=== PATIENT | female | born 1945 | race Two or more races ===

== ENCOUNTER 2023-03-17 09:33 | Inpatient (IN) | payer MEDICARE, SELFPAY ==
--- NOTE | ~2023-03-17 | CT_ITS ---
EXAMINATION: CT ABDOMEN AND PELVIS WITHOUT CONTRAST CLINICAL INFORMATION: Lower back pain. COMPARISON: None available. TECHNIQUE: Multidetector volumetric imaging was performed from the superior aspect of the liver through the pubic symphysis. Sagittal and coronal reformatted images were obtained on the technologist's workstation. This CT examination was performed using dose optimization techniques as appropriate, variously including the following: *Automated exposure control *Adjustment of mA and/or kV according to patient size (this includes techniques or standardized protocols for targeted exams where dose is matched to indication/reason for exam; i.e. extremities or head) *Use of iterative reconstruction technique DLP: 283 mGy-cm FINDINGS: LUNG BASES: The lung bases are clear. The heart size is normal. LIVER, GALLBLADDER, AND BILIARY TREE: The liver is normal in size, shape, and attenuation. No focal hepatic lesion or biliary ductal dilatation is present. The gallbladder is not visualized. PANCREAS: Unremarkable. SPLEEN: Unremarkable. ADRENAL GLANDS: Unremarkable. KIDNEYS AND URETERS: The kidneys are normal in size, shape, and attenuation. No hydronephrosis, hydroureter, or calculi seen. No perinephric stranding. BLADDER: The bladder is nondistended with a Sol's catheter within GASTROINTESTINAL TRACT: Scattered moderate stool, diverticuli and gas is seen in colon without distention. The small bowel loops are normal caliber. Appendix is not visualized the stomach is nondistended ABDOMINAL WALL: No significant hernia is appreciated. LYMPH NODES: Normal. VASCULAR: Unremarkable. PELVIC VISCERA: The uterus is at anteverted and appears grossly unremarkable. There are several calcification left adnexa likely ovarian origin. Punctate calcifications in the right ovary. OSSEOUS STRUCTURES: There is old compression fracture T12 vertebra and superior endplate L1 vertebra with a bridging osteophyte. CT/CT abdomen pelvis wo IV con IMPRESSION: 1. No acute intra-abdominal process seen. 2. Mild constipation. Scattered colonic diverticulosis without diverticulitis. Fleischner guidelines were followed.
--- NOTE | ~2023-03-17 | CT_ITS ---
EXAMINATION: CT HEAD WITHOUT CONTRAST CLINICAL INFORMATION: Confusion. COMPARISON: None. TECHNIQUE: Contiguous axial imaging was performed from the skullbase to vertex without intravenous administration of contrast. This CT examination was performed using dose optimization techniques as appropriate, variously including the following: *Automated exposure control *Adjustment of mA and/or kV according to patient size (this includes techniques or standardized protocols for targeted exams where dose is matched to indication/reason for exam; i.e. extremities or head) *Use of iterative reconstruction technique DLP: 560 mGy-cm. FINDINGS: There is no evidence of acute intracranial hemorrhage or territorial infarction. No abnormal mass effect or midline shift is seen. [place] to white matter differentiation is well preserved. No extra-axial fluid collections are identified. Mild generalized brain parenchymal volume loss noted. The ventricles are normal in size. Mild chronic white matter microangiopathic changes noted. The osseous structures and soft tissues are normal. The mastoid air cells and visualized portions of the paranasal sinuses are well aerated. CT/CT head/brain wo IV con IMPRESSION: No acute intracranial pathology.
--- NOTE | ~2023-03-17 | CT_ITS ---
EXAMINATION: CT THORACIC SPINE WITHOUT CONTRAST CT LUMBAR SPINE WITHOUT CONTRAST CLINICAL INFORMATION: Back pain COMPARISON: CT abdomen and pelvis 03/17/2023 TECHNIQUE: A multidetector CT acquisition of the lumbar spine is obtained without contrast. This CT examination was performed using dose optimization techniques as appropriate, variously including the following: *Automated exposure control *Adjustment of mA and/or kV according to patient size (this includes techniques or standardized protocols for targeted exams where dose is matched to indication/reason for exam; i.e. extremities or head) *Use of iterative reconstruction technique DLP: 511.65 mGy-cm mGy-cm FINDINGS: CT THORACIC SPINE: Diffuse bony demineralization. The normal thoracic kyphosis is preserved. No significant spondylolisthesis. Dextrocurvature of the thoracic spine. Likely chronic compression deformity of the T12 vertebral body with greater than 75% central vertebral body height loss. There is bony retropulsion of the T12 inferior endplate contributing to severe spinal canal stenosis. Likely severe bilateral neural foraminal stenosis, greater on the right, with exiting nerve root impingement at T12-L1. Otherwise, the spinal canal and neural foramen in the thoracic spine appear grossly patent within the constraints of exam technique. 3 mm perifissural nodule in the left upper lobe. Partially visualized multivessel coronary artery atherosclerotic calcification. CT LUMBAR SPINE: Diffuse bony demineralization. The normal lumbar lordosis is preserved. Grade 1 anterolisthesis of L4-L5 and L5-S1. Mild L1 superior endplate height loss. Lumbar vertebral body heights are otherwise maintained. Multilevel intervertebral disc space height loss, most prominent at L2-L3. Multilevel advanced facet arthropathy. Please note that canal patency is not well assessed on this examination due to inherent limitations of CT without intrathecal contrast. Within these limitations, multilevel degenerative changes with level by level detail are as follows: L1-L2: There arthropathy. The spinal canal remains patent. Mild narrowing of the right neural foramen. L2-L3: Disc bulge and osteophytic ridging with facet arthropathy. Asymmetric narrowing of the right lateral recess. The spinal canal is otherwise patent. Mild to moderate right neural foraminal narrowing. L3-L4: Disc bulge and facet arthropathy. The spinal canal and neural foramen remain patent. L4-L5: Disc bulge and facet arthropathy. Mild narrowing of the lateral recesses. The spinal canal is patent. Mild narrowing of the left neural foramen. L5-S1: Disc bulge and facet arthropathy. The spinal canal is patent. The left neural foramen is minimally narrowed. Calcifications along the left adnexa. Atherosclerosis of the abdominal aorta and iliac vessels. CT/CT thoracic spine wo IV con IMPRESSION: Severe compression deformity of T12 with associated mild compression deformity of the L1 superior endplate. There is bony retropulsion of the T12 vertebral body contributing to severe spinal canal stenosis with probable mass effect on the thoracic cord that is not well visualized on this examination. There is severe right greater than left neural foraminal stenosis at T12-L1. Diffuse osteopenia. Coarse calcifications in the left adnexa are likely ovarian in origin. Follow-up pelvic ultrasound can be considered.
--- NOTE | ~2023-03-17 | MR_ITS ---
EXAMINATION: MR THORACIC SPINE WITHOUT CONTRAST CLINICAL INFORMATION: Leg weakness. Evaluate for cord compression. COMPARISON: CT scan of the thoracic and lumbar spine 03/22/2023. TECHNIQUE: MRI of the thoracic spine was obtained using routine sequences without contrast. FINDINGS: VERTEBRAL BODIES AND PARASPINAL STRUCTURES: There is a levoscoliosis at the thoracolumbar region. There is mild hyperkyphosis at the thoracolumbar junction. The study redemonstrates severe compression of the body of T12 and irregular contour of the superior endplate of L1. There is fluid in the intervertebral disc at T12-L1. There is mild edematous signal in the body of T12 centrally and toward the left, and the findings are consistent with an acute to subacute fracture. There is greater than 75% loss of vertebral body height of T12, similar compared to the prior scan. There are extensive degenerative endplate contour changes at this level. There is multilevel narrowing of intervertebral disc height in the mid and upper thoracic spine. Vertebral body heights are maintained at other levels, and there are no other compression fractures. Overall, marrow signal is homogenous. There are small right-sided hepatic cysts. The paravertebral and the visualized posterior thoracic and superior retroperitoneal structures are unremarkable. The conus is at the level of L1-L2. There is severe compression of the spinal cord from retropulsion of the posterior inferior body of T12 into the spinal canal. Accounting for artifact, spinal cord signal appears normal SPINAL LEVELS: C5-C6 and C6-C7: On the localizer images there are posterior disc protrusion at these levels with effacement of CSF ventral to the cord, and there may be central stenosis at C5-C6. There is suboptimal evaluation of the neural foramina. C7-T1: There is a small posterior disc protrusion but there is no cord compression or central stenosis. The neural foramina appear patent. T1-T2 through T9-T10: Posterior disc contours appear normal in is no cord compression or central stenosis. The neural foramina appear patent. T10-T11: There is moderate left and mild right facet arthropathy. Posterior disc contour is normal. There is no central stenosis and the neural foramina are patent bilaterally. T11-T12: There is moderate left and mild right facet arthropathy. Posterior disc contour is normal and there is no central stenosis. The neural foramina are patent bilaterally. T12-L1: There is severe right and moderate left facet arthropathy. As described above, there is posterior protrusion of the inferior body of T12 into the spinal canal; the fragment appears separate from the rest of the body T12 anterior to it. There is marked compression of the lower thoracic spinal cord/conus and there is severe central stenosis. There is severe bilateral foraminal narrowing. L1-L2: There is moderate bilateral facet arthropathy. There is a shallow posterior disc protrusion but there is no central stenosis. The neural foramina are patent bilaterally. L2-L3: There is a posterior disc protrusion with some distortion the ventral thecal sac and there may be mild central stenosis. There is a inferior disc protrusion on the right without definite exiting nerve root impingement. MR/MR thoracic spine wo con IMPRESSION: 1. There is an acute to subacute severe compression fracture of the body of T12 with retropulsion of the inferior body into the spinal canal. There is marked compression of the lower thoracic spinal cord/conus, and there is severe central stenosis. Accounting for artifact, spinal cord signal appears normal. There is severe bilateral foraminal narrowing. 2. There are spondylitic and facet arthropathic changes at multiple other levels as described above. 3. There are severe spondylitic changes in the lower cervical spine. This could be further evaluated with MRI scan of the cervical spine.
[2023-03-17 09:51] VITALS: BP 147/72; BP 148/72; PULSE 108; PULSE 110; RESP 20; TEMP 37.1; O2SAT 100; O2SAT 96; BMI 21.1
[2023-03-17 10:03] LABS: Glucose, Whole Blood 347 mg/dL (60-115)
[2023-03-17 10:50] LABS: Basophils Percent Auto 0.2 % (0-2); Eosinophils Percent Auto 0.4 % (0-4); Hematocrit 36.9 % (37.0-47.0); Hemoglobin 13.2 g/dl (12.0-16.0); Imm Gran Abs Auto 0.15 X10*3/uL (0.00-0.03); Imm Gran Pct Auto 1.4 % (0.0-0.4); Lymphocytes Absolute Auto 1.8 X10*3/uL (1.2-4.9); Lymphocytes Percent Auto 16.6 % (20-40); MANUAL DIFF FLAG NO; Mean Corpuscular HGB Conc 35.8 g/dl (31.0-35.0); Mean Corpuscular Hemoglobin 29.8 pg (27.0-33.0); Mean Corpuscular Volume 83.3 fL (80.0-98.0); Mean Platelet Volume 8.8 fL (9.4-12.3); Monocytes Absolute Auto 0.7 X10*3/uL (0.1-1.2); Monocytes Percent Auto 6.1 % (2-11); Neutrophils Absolute Auto 8.2 x10*3/uL (2.0-8.3); Neutrophils Percent Auto 75.3 % (45-73); Platelet Count 323 X10*3/uL (160-400); Red Blood Count 4.43 X10*6/uL (4.20-5.50); Red Cell Distribution Width 12.3 % (11.0-16.0); White Blood Count 10.9 X10*3/uL (4.8-10.8)
[2023-03-17 10:59] LABS: Prothrombin Time 11.6 SEC (11.1-13.3)
--- NOTE | 2023-03-17 11:01 | ED.GENADULT ---
HPI - General Adult General Chief complaint: General Medical Stated complaint: ? UTI/cloudy urine in suprapubic cath Time Seen by Provider: 03/17/23 10:07 Source: patient and family Mode of arrival: ambulatory Limitations: other (Poor historian) History of Present Illness HPI narrative: This is a 77-year-old female history of hypothyroidism, hypertension, hyperlipidemia, diabetes presenting to the emergency department with her son, according to son patient came in from [place] yesterday, and son noted that her urine was very foul smelling and her Sol catheter had some small blood clots in it, patient also slightly confused in deviating from her baseline. No recent falls. Reports that she recently had lower back surgery in December . Patient's son states she has not had any postop care as scheduled in [place]. She is living at home and is having difficulties with ambulation and he thinks she needs services at home. Patient denies fevers, chills, nausea, vomiting, chest pain, shortness of breath, abdominal pain, changes in bowel habits. Related Data Allergies Allergy/AdvReac Type Severity Reaction Status Date / Time No Known Allergies Allergy Verified 03/17/23 09:54 Review of Systems Review of Systems: Constitutional : No Weight loss, No Fever, No Chills, No Fatigue, No Malaise ENT/Mouth : No sore throat, No Rhinorrhea Eyes: No Eye Pain, No Swelling, No Redness Cardiovascular : No Chest Pain, No SOB, No Dyspnea on Exertion, No Orthopnea, No Edema, No Palpitations Respiratory : No Cough, No Sputum, No Wheezing Gastrointestinal : No Nausea, No Vomiting, No Diarrhea, No Constipation, No abdominal Pain, No Hematochezia, No Melena Genitourinary : No Dysuria, No Urinary Frequency, No Hematuria, Musculoskeletal : No joint pain, No Myalgias, No Joint Swelling Skin : No Skin Lesions, No rash Neuro : No Weakness, No Numbness, No Dizziness, No Headache Psych : No Anxiety/Panic, No Depression All other systems reviewed and are negative Yes all other systems are reviewed and are negative [facility] Past Medical History Attestation statement: The following information was validated with the patient. Source: old records reviewed and nursing notes reviewed Social History Social History Advance Directives: No Advance Directives Information Provided: Yes Physical Exam ED Vital Signs: Vital Signs - 24 hr 03/17/23 09:51 Temperature 98.8 F Pulse Rate 108 H Respiratory Rate 20 Blood Pressure 148/72 H Pulse Oximetry 96 Oxygen Delivery Method Room Air BMI result Body Mass Index 21.1 Vital signs stable Appearance: Alert.? Oriented X3.? No acute distress.? Head: Normocephalic, atraumatic, no step-offs or deformities Eyes: Pupils equal, round and reactive to light.? CVS: Normal heart rate and rhythm.? Pulses normal.? Respiratory: No respiratory distress.? Breath sounds normal.? Abdomen: Soft and nontender.? Skin: Skin warm and dry.? Normal skin color.? Normal skin turgor.? Extremities: No lower extremity edema.? No calf ttp. Global weakness Back: No midline tenderness, no C-spine tenderness, full range of motion, no CVA tenderness bilaterally Neuro: Oriented X 3.? No motor deficit.? No sensory deficit. CN 2-12 intact Course Reevaluation(s) Reevaluation #1: CBC w/ leukocytosis 10.9 without a left shift, chemistry with low sodium 129, potassium 2.8 oral potassium ordered, will also give 10 IV potassium and IV fluids. UA w/ infection. Time: 11:28 Reevaluation #2: Plan at this time is hospital admission will admit to the hospitalist team. At time admission was discussed with hospitalist CT abdomen and pelvis still pending. Time: 11:30 Medications Administered Generic Name Dose Route Start Last Admin Trade Name Freq PRN Reason Stop Dose Admin Sodium Chloride 1,000 mls @ 999 mls/hr 03/17/23 11:15 03/17/23 11:21 Ns IV 03/17/23 12:15 999 mls/hr .[id number] LG Administration Discontinued Medications Generic Name Dose Route Start Last Admin Trade Name Freq PRN Reason Stop Dose Admin Potassium Chloride 40 meq 03/17/23 11:07 03/17/23 11:20 Potassium Chloride Packet 20 Meq Packet PO 03/17/23 11:08 40 meq ONCE ONE Administration Medical Decision Making Medical Decision Making [facility] Narrative: 1105 77-year-old female presents with son who complains that patient has dark urine, noted blood clots and patient's Sol bag and patient also complaining of intermittent back pain with recent surgery in December. No red flag symptoms of back pain Physical examination benign. Patient with global weakness which is her baseline. History and physical exam concerning for possible UTI versus cystitis. Unlikely pyelonephritis. This is likely postoperative pain. I do not suspect acute findings. Unlikely cord compression, cauda equina or epidural abscess. No recent trauma unlikely traumatic injury to head, neck, chest, abdomen or pelvis. Plan at this time labs, imaging. Differential Diagnosis Differential Diagnoses: The differential diagnosis associated with the presentation includes History and physical exam concerning for possible UTI versus cystitis. Unlikely pyelonephritis. This is likely postoperative pain. I do not suspect acute findings. Unlikely cord compression, cauda equina or epidural abscess. Admission/Observation Consideration of admission/observation: Escalation of care including admission/observation considered Likely physical therapy and case management Consult Healthcare Provider Management of the patient was discussed with: Weekend Receptionist Lab Data MDM Lab Attestation statement: I reviewed the patient's lab results. 03/17/23 10:44 03/17/23 10:44 Labs: Lab Results 03/17/23 03/17/23 03/17/23 Range/Units 10:00 10:44 11:08 WBC 10.9 H (4.8-10.8) X10*3/uL RBC 4.43 (4.20-5.50) X10*6/uL Hgb 13.2 (12.0-16.0) g/dl Hct 36.9 L (37.0-47.0) % MCV 83.3 (80.0-98.0) fL MCH 29.8 (27.0-33.0) pg MCHC 35.8 H (31.0-35.0) g/dl RDW 12.3 (11.0-16.0) % Plt Count 323 (160-400) X10*3/uL MPV 8.8 L (9.4-12.3) fL Immature Gran % (Auto) 1.4 H (0.0-0.4) % Neut % (Auto) 75.3 H (45-73) % Lymph % (Auto) 16.6 L (20-40) % [place] % (Auto) 6.1 (2-11) % Eos % (Auto) 0.4 (0-4) % Baso % (Auto) 0.2 (0-2) % Lymph # (Auto) 1.8 (1.2-4.9) X10*3/uL [place] # (Auto) 0.7 (0.1-1.2) X10*3/uL Eos # (Auto) 0.0 (0.0-0.4) X10*3/uL Baso # (Auto) 0.0 (0.0-0.2) X10*3/uL Abs Immat Gran (auto) 0.15 H (0.00-0.03) X10*3/uL Absolute Neuts (auto) 8.2 (2.0-8.3) x10*3/uL Absolute Nucleated RBC 0.000 (0.0-0.012) X10*3/uL Nucleated RBC % (auto) 0.0 (0.0-0.2) /100WBC PT 11.6 (11.1-13.3) SEC INR 1.0 (0.9-1.1) Sodium 129 L (135-145) mmol/L Potassium 2.8 L (3.3-5.1) mmol/L Chloride 85 L (96-108) mmol/L Carbon Dioxide 31 H (22-29) mmol/L Anion Gap 16 (12-20) BUN 11 (9-16) mg/dL Creatinine 0.66 (0.5-1.4) mg/dL Estim Creat Clear Calc 52.9 Estimated GFR > 60 POC Glucose 347 H (60-115) mg/dL Random Glucose 336 H (60-115) mg/dL Calcium 9.2 (8.4-10.2) mg/dL Magnesium 1.9 (1.6-2.6) mg/dL Total Bilirubin 0.8 (0.0-1.0) mg/dL Direct Bilirubin 0.3 (0.0-0.5) mg/dL AST 36 H (5-31) U/L ALT 77 H (0-31) U/L Alkaline Phosphatase 97 (39-117) U/L Total Protein 5.7 L (6.5-8.0) g/dL Albumin 3.4 L (3.5-5.0) g/dL Beta-Hydroxybutyrate 0.14 (0.02-0.27) mmol/L Urine Color Yellow Urine Appearance Turbid Urine pH 7.5 (5.0-9.0) Ur Specific [place] 1.020 (1.005-1.025) Urine Protein 30 (1+) H (Neg-Trace) mg/dL Urine Glucose (UA) >=1000 H (Negative) mg/dL Urine Ketones Negative (Negative) mg/dL Urine Blood Moderate (2+) H (Negative) Urine Nitrite Positive H (Negative) Ur Leukocyte Esterase Large (3+) H (Negative) Urine RBC 0-2 (0-2) /HPF Urine WBC >50 H (0-5) /HPF Urine WBC Clumps Present Ur Squamous Epith Cells 0-2 (0-2) /HPF Urine Bacteria 4+ (None Seen) Hyaline Casts 0-2 (0-2) /LPF Independent Interpretation I performed an independent interpretation of an: CT Scan Radiology Impression Discussion of test interpretation with radiology: I have reviewed the radiologist's reading. External Record Review External record reviewed: Inpatient record Chronic Conditions Patient?s care impacted by: Diabetes, Hypertension and Other (Hypothyroidism, hyperlipidemia) Social Determinants Patient?s care significantly limited by Social Determinants of Health including: Other Social Determinant of Health Critical Care Time Critical Care Time Critical Care Time: Yes Total Critical Care Time: 40 Attestation: I attest to this time spent taking care of the patient, obtaining history, physical, reviewing labs, imaging, speaking to my attending, speaking to specialist. Discharge Plan Discharge Clinical Impression: Acute UTI, Acute hypokalemia, Acute hyponatremia, Physical deconditioning, Lower back pain Patient Disposition: Admitted As Inpatient
[2023-03-17 11:04] LABS: Alanine Aminotransferase 77 U/L (0-31); Albumin Level 3.4 g/dL (3.5-5.0); Alkaline Phosphatase 97 U/L (39-117); Anion Gap 16 (12-20); Aspartate Amino Transferase 36 U/L (5-31); Beta-Hydroxybutyrate 0.14 mmol/L (0.02-0.27); Bilirubin Direct 0.3 mg/dL (0.0-0.5); Bilirubin Total 0.8 mg/dL (0.0-1.0); Blood Urea Nitrogen 11 mg/dL (9-16); Calcium 9.2 mg/dL (8.4-10.2); Carbon Dioxide 31 mmol/L (22-29); Chloride 85 mmol/L (96-108); Creatinine Clr Calc Pharmacy 52.9; Estimated Glomerular Filt Rate > 60; Glucose Random 336 mg/dL (60-115); Magnesium 1.9 mg/dL (1.6-2.6); Potassium 2.8 mmol/L (3.3-5.1); Sodium 129 mmol/L (135-145); Total Protein 5.7 g/dL (6.5-8.0)
--- NOTE | 2023-03-17 11:14 | PC.NURSE ---
PT/SON AT BEDSIDE. PT CAME IN FROM [place] LAST NIGHT. PT IS A/O X 4. NO SOB/ROHAN NOTED MALTESE SPEAKING. PT HAD A URINARY CATH WITH YELLOW URINE (300ML) WITH SM. AMT OF SEDIMENTS AND FOUL ODOR. CATH D/C'D AND A NEW URINARY CATH PLACED.#16 WITH 5ML IMMEDIATE OUTPUT. PT'S EDUIN GROIN AREA IS YURIDIA AND BARRIER CREAM APPLIED. PT HAS DRY SKIN TO TOTAL BACK AREA. PT CLEANED AND REPOSITIONED TO R SIDE WITH PILLOW. PT/SON AWARE OF PLAN OF CARE. ACCORDING TO PT'S SON HE BROUGHT IN HER UPDATED MEDICAL RECORDS INFO. MLP (KIP) AWARE.
[2023-03-17 11:19] LABS: Appearance Urine Turbid; Color Urine Yellow; Glucose Urine UA >=1000 mg/dL (Negative); Leukocyte Esterase Urine Large (3+) (Negative); Nitrite Urine Positive (Negative); PH 7.5 (5.0-9.0); UMIC TRIGGER UACC YES; Urine Blood Moderate (2+) (Negative); Urine Ketones Negative (Negative); Urine Protein 30 (1+) mg/dL (Neg-Trace)
[2023-03-17] MEDS: Potassium Chloride Packet 20 MEQ PACKET 40 MEQ PO (11:20)
[2023-03-17] MEDS: 0.9 % Sodium Chloride 1,000 ML 999 ML IV (11:21)
--- NOTE | 2023-03-17 11:24 | PC.NURSE ---
pt medicated per provider order.
--- NOTE | 2023-03-17 11:30 | ECG_ITS ---
Test Reason : WEAKNESS Blood Pressure : / mmHG Vent. Rate : 081 BPM Atrial Rate : 081 BPM P-R Int : 140 ms QRS Dur : 072 ms QT Int : 444 ms P-R-T Axes : 047 -22 049 degrees QTc Int : 515 ms Sinus rhythm with Premature atrial complexes Prolonged QT Abnormal ECG No previous ECGs available Referred By: Fernando Swan Electronically Signed By:LETI ONEIL MD
[2023-03-17 11:41] LABS: UACC Culture Trigger YES; WBC Clumps Urine Present; WBC Urine >50 /HPF (0-5)
[2023-03-17 11:42] LABS: Bacteria Urine 4+ (None Seen); Hyaline Casts Urine 0-2 /LPF (0-2); RBC Urine 0-2 /HPF (0-2); Squamous Epithelial Cell Urine 0-2 /HPF (0-2)
[2023-03-17 12:35] VITALS: BP 168/81; PULSE 81; RESP 12; TEMP 36.8; O2SAT 100
[2023-03-17 12:36] LABS: Influenza A PCR NEGATIVE (Negative); Influenza B PCR NEGATIVE (Negative); Resp Syncy Virus RNA Qual PCR NEGATIVE (Negative); SARS COV2 PCR INHOUSE NEGATIVE (Negative)
[2023-03-17] MEDS: cefTRIAXone sodium 1 GM in 0.9 % Sodium Chloride 50 ML IV (12:42)
[2023-03-17] MEDS: Potassium Chloride/H20 10 MEQ/100 ML PIGGYBACK 100 MEQ IV (12:43)
[2023-03-17 12:55] LABS: Lactic Acid 3.1 mmol/L (0.5-2.0)
--- NOTE | 2023-03-17 12:56 | PM.IMHP ---
History of Present Illness Date of Service: 03/17/23 Attending physician on admission: Willy Cochran Chief Complaint: Cloudy, foul-smelling urine in catheter Pt is a Citizen Of [place]-speaking 77-year-old female with a PMH significant for?HTN, HLD, [id number] diabetes type 2, hypothyroidism, back surgery in 12/2022 with [address] in place, and mood disorder who presents to the ED with generalized weakness and cloudy, foul-smelling urine in her Sol catheter. Pt only arrived yesterday from [place] where in June of this year she lost her . Since then pt has been depressed, eating and drinking less, and steadily declining in health until she had a fall at home in December of this year. Patient apparently lay on the floor for 2 days until anyone found her. She apparently suffered some kind of spinal injury that required surgery. Patient's son notes that a Sol catheter was placed at that time and has been in place every since. He reports she did not receive any physical therapy either in the hospital at home and has steadily become less and less mobile since the surgery. Currently she is unable to ambulate on her own or with a walker. Due to deconditioning son went to [place] to bring the pt here to live with him. Brings her to the ED today after noticing just how weak she was and that her urine was cloudy, with some clots of blood, and foul-smelling. Pt denies fever, chills nausea, abdominal pain. Denies dysuria but endorses polyuria. No chest pain/pressure, palpitations. Denies shortness of breath. Some mild chronic lower back pain. Denies numbness or tingling in toes. In the ED pt was afebrile but tachycardic up to 108, hypertensive to 168/81, satting at 90 6% on RA. Labs were significant for WBCs 10.9, sodium 129, potassium 2.8, chloride 85, random glucose 336, lactic acid 3.1, AST 36, and ALT 77. No significant leukocytosis. H&H talat. Beta hydroxybutyrate door off. Negative for influenza a and B, RSV, COVID. UA positive for UTI. CT of abdomen/pelvis showed no acute intra-abdominal process, but did show mild constipation and scattered colonic diverticulosis without diverticulitis. EKG demonstrated sinus rhythm with PACs. Pt was treated with potassium chloride IV and p.o., IVF, and ceftriaxone. Pt will be admitted to the hospital for treatment and further evaluation of acute UTI, hyponatremia, hypokalemia, and generalized weakness. Review of Systems Review of Systems: Cloudy, foul-smelling urine Hematuria Generalized weakness, difficulty ambulating Mild chronic lower back pain Denies fever, chills, nausea, vomiting, abdominal pain No numbness or tingling in lower extremities No chest pain/pressure, palpitations Denies shortness of breath [facility] Medical History (Updated 03/17/23 @ 16:48 by THADDEUS Niño) Non-insulin dependent type 2 diabetes mellitus Hypothyroidism CAD (coronary artery disease) HLD (hyperlipidemia) HTN (hypertension) Surgical History (Updated 03/17/23 @ 16:48 by THADDEUS Niño) History of lumbar surgery Social History Smoked in Last 30 Days: Yes Use of substances other than those prescribed or required for medical reasons: No Advance Directives: No Advance Directives Information Provided: Yes Meds Allergies Allergy/AdvReac Type Severity Reaction Status Date / Time No Known Allergies Allergy Verified 03/17/23 09:54 Home Medications Medication Instructions Recorded Confirmed Last Taken Type aspirin 81 mg tablet,delayed 81 mg PO DAILY 03/17/23 03/17/23 Unknown History release atorvastatin 40 mg tablet 40 mg PO DAILY 03/17/23 03/17/23 Unknown History candesartan 32 mg tablet 32 mg PO DAILY 03/17/23 03/17/23 Unknown History citalopram 40 mg tablet 40 mg PO DAILY 03/17/23 03/17/23 Unknown History duloxetine 20 mg capsule,delayed 20 mg PO DAILY 03/17/23 03/17/23 Unknown History release gabapentin 300 mg capsule 300 mg PO BEDTIME 03/17/23 03/17/23 Unknown History glimepiride 4 mg tablet 4 mg PO DAILY 03/17/23 03/17/23 Unknown History glipizide 10 mg tablet, extended 10 mg PO DAILY 03/17/23 03/17/23 Unknown History release 24 hr hydrochlorothiazide 12.5 mg tablet 12.5 mg PO DAILY 03/17/23 03/17/23 Unknown History levothyroxine 50 mcg tablet 50 mcg PO DAILY 03/17/23 03/17/23 Unknown History melatonin 10 mg tablet 10 mg PO BEDTIME PRN Insomnia 03/17/23 03/17/23 Unknown History memantine 10 mg tablet 10 mg PO DAILY 03/17/23 03/17/23 Unknown History metoprolol succinate 50 mg 50 mg PO DAILY 03/17/23 03/17/23 Unknown History tablet,extended release 24 hr Physical Exam Vital Signs and Narrative: Vital Signs: Last Vital Signs Temp 98.3 F 03/17/23 12:35 Pulse 81 03/17/23 12:35 Resp 12 03/17/23 12:35 BP 168/81 H 03/17/23 12:35 Pulse Ox 100 03/17/23 12:35 O2 Del Method Room Air 03/17/23 12:35 BMI result Body Mass Index 21.1 Constitutional: Alert, in no acute distress. Mental Status: Oriented to person, place and time. Eyes: Pupils are equal, round, and reactive to light. Ear, Nose, and Throat: Oropharynx clear, mucous membranes dry. Ears and nose without deformities. Trachea midline. Respiratory: Clear to auscultation bilaterally. No wheezing, rales, or rhonchi. Cardiovascular: S1, S2 regular. No murmurs, rubs, or gallops. Gastrointestinal: Abdomen soft, non-tender, non-distended. Normal bowel sounds. Neurologic: Cranial nerves II-XII are grossly intact bilaterally. No focal neurological deficits. Moves all extremities spontaneously. Skin: Warm, dry. Musculoskeletal: 1/5 strength of lower extremities bilaterally. Severly diminished active and passive dorsiflexion and plantarflexion. Extremities: No edema. Psychiatric: Normal mood and affect. Results Labs 03/17/23 10:44 03/17/23 10:44 Labs: Laboratory Results - last 24 hr 03/17/23 03/17/23 03/17/23 10:00 10:44 11:08 MCV 83.3 MCH 29.8 MCHC 35.8 H RDW 12.3 Plt Count 323 MPV 8.8 L Immature Gran % (Auto) 1.4 H Neut % (Auto) 75.3 H Lymph % (Auto) 16.6 L [place] % (Auto) 6.1 Eos % (Auto) 0.4 Baso % (Auto) 0.2 Lymph # (Auto) 1.8 [place] # (Auto) 0.7 Eos # (Auto) 0.0 Baso # (Auto) 0.0 Abs Immat Gran (auto) 0.15 H Absolute Neuts (auto) 8.2 Absolute Nucleated RBC 0.000 Nucleated RBC % (auto) 0.0 PT 11.6 INR 1.0 Anion Gap 16 Estim Creat Clear Calc 52.9 Estimated GFR > 60 POC Glucose 347 H Random Glucose 336 H Lactic Acid Calcium 9.2 Magnesium 1.9 Total Bilirubin 0.8 Direct Bilirubin 0.3 AST 36 H ALT 77 H Alkaline Phosphatase 97 Total Protein 5.7 L Albumin 3.4 L Beta-Hydroxybutyrate 0.14 Urine Color Yellow Urine Appearance Turbid Urine pH 7.5 Ur Specific [place] 1.020 Urine Protein 30 (1+) H Urine Glucose (UA) >=1000 H Urine Ketones Negative Urine Blood Moderate (2+) H Urine Nitrite Positive H Ur Leukocyte Esterase Large (3+) H Urine RBC 0-2 Urine WBC >50 H Urine WBC Clumps Present Ur Squamous Epith Cells 0-2 Urine Bacteria 4+ Hyaline Casts 0-2 Influenza Type A (PCR) NEGATIVE Influenza Type B (PCR) NEGATIVE RSV RNA Qual (PCR) NEGATIVE SARS-CoV-2 RNA (RT-PCR) NEGATIVE 03/17/23 12:28 MCV MCH MCHC RDW Plt Count MPV Immature Gran % (Auto) Neut % (Auto) Lymph % (Auto) [place] % (Auto) Eos % (Auto) Baso % (Auto) Lymph # (Auto) [place] # (Auto) Eos # (Auto) Baso # (Auto) Abs Immat Gran (auto) Absolute Neuts (auto) Absolute Nucleated RBC Nucleated RBC % (auto) PT INR Anion Gap Estim Creat Clear Calc Estimated GFR POC Glucose Random Glucose Lactic Acid 3.1 H* Calcium Magnesium Total Bilirubin Direct Bilirubin AST ALT Alkaline Phosphatase Total Protein Albumin Beta-Hydroxybutyrate Urine Color Urine Appearance Urine pH Ur Specific [place] Urine Protein Urine Glucose (UA) Urine Ketones Urine Blood Urine Nitrite Ur Leukocyte Esterase Urine RBC Urine WBC Urine WBC Clumps Ur Squamous Epith Cells Urine Bacteria Hyaline Casts Influenza Type A (PCR) Influenza Type B (PCR) RSV RNA Qual (PCR) SARS-CoV-2 RNA (RT-PCR) Assessment and Plan (1) Acute hyponatremia: Status: Acute (2) Acute hypokalemia: Status: Acute (3) Acute UTI: Status: Acute Plan Pt is a Citizen Of [place]-speaking 77-year-old female with a PMH significant for?HTN, HLD, [id number] diabetes type 2, hypothyroidism, back surgery in 12/[address] in [address], and mood disorder who presents to the ED with generalized weakness and cloudy, foul-smelling urine in her Slo catheter. Pt will be admitted to the hospital for treatment and further evaluation of acute UTI, hyponatremia, hypokalemia, and generalized weakness. Acute UTI UA positive for UTI Will treat with ceftriaxone, started 03/17/2023 Follow cultures Hyponatremia Patient's sodium 129 at time of presentation Likely secondary to dehydration from reduced p.o. intake and continuing to take hydrochlorothiazide Hold hydrochlorothiazide Patient receiving IVF Follow BMP Hypokalemia Potassium 2.8 at time presentation Patient received IV and p.o. potassium supplementation in ED Follow BMP Lactic acidosis Patient's lactic acid 3.1 with repeat 2.1 Patient does not meet sepsis criteria: Tachycardia but no fever, tachypnea, or leukocytosis Likely secondary to dehydration Patient received IVF in ED Will place on maintenance fluids [id number] diabetes type 2 Patient hyperglycemic at 347 at time of presentation Continue home meds Will place on sliding scale Diabetic diet HLD/CAD Continue aspirin, statin HTN Hold hydrochlorothiazide Continue all other anti hypertensives Hypothyroidism Continue levothyroxine Mood disorder Continue home meds DNR/DNI Attending:?Dr. Cochran DVT Prophylaxis: Lovenox Pt will require a hospitalization of at least two nights for treatment of?electrolyte imbalances and generalized weakness in the setting of acute UTI. Patient will be treated with IVF, IV antibiotics, electrolyte supplementation as necessary, and close monitoring. Quality Stroke Does the patient have a stroke diagnosis?: No VTE Prior VTE?: No VTE Risk Level:: Medical - moderate - high VTE Device Contraindication: Treatment Not Indicated VTE Drug Contraindication: N/A - Med Ordered
[2023-03-17 14:32] LABS: Reflex Lactate? Lactic Acid Added
[2023-03-17] MEDS: Lactated Ringers 1,000 ML 100 ML IVCONT (14:44)
[2023-03-17 14:47] VITALS: BP 149/79; PULSE 89; RESP 14; TEMP 37; O2SAT 100
[2023-03-17 15:31] LABS: ~Lactic Acid-LAB USE ONLY 2.1 mmol/L (0.5-2.0)
[2023-03-17 16:08] VITALS: BP 116/94; PULSE 79; RESP 20; TEMP 36.8; O2SAT 98
[2023-03-17 16:29] LABS: Cancel Lactic Acid Canceled
[2023-03-17 16:42] LABS: Glucose, Whole Blood 187 mg/dL (60-115)
[2023-03-17 17:19] VITALS: BP 110/56; PULSE 77; RESP 16; TEMP 36.9; O2SAT 97
[2023-03-17] MEDS: Enoxaparin Sodium 40 MG/0.4 ML SYRINGE SUBCUT (17:37)
--- NOTE | 2023-03-17 17:44 | MHC.EDTECH ---
This assumed care of pt at 1700 ,vitals taken and Pt belongings list done .
[2023-03-17 20:27] VITALS: BMI 20.1
[2023-03-17 20:38] VITALS: BMI 20.1
[2023-03-17] MEDS: Insulin Lispro 100 UNIT/ML 3 ML VIAL SUBCUT (20:48)
[2023-03-17] MEDS: 0.9 % Sodium Chloride Flush 3 ML SYRINGE IVFLUSH (20:49)
[2023-03-17] MEDS: Gabapentin 300 MG CAPSULE PO (20:49)
[2023-03-17 20:57] LABS: Glucose, Whole Blood 226 mg/dL (60-115)
[2023-03-17] MEDS: Melatonin 3 MG TABLET 6 MG PO (23:14)
[2023-03-17] MEDS: Acetaminophen 325 MG TABLET 650 MG PO (23:14)
--- NOTE | 2023-03-18 00:24 | PC.NURSE ---
Pt arrived to the unit after 1999 per stretcher, slid to bed by staff, alert and oriented x3, forgetful and not fully aware of health details, denies any pain or any discomfort on arrival, staff interpreted for pt, oriented to the unit and care, meds given, owusu intact and patent, requested for sleep med and pain med for back later, tylenol and melatonin given, slept after.
[2023-03-18] MEDS: Lactated Ringers 1,000 ML 100 ML IVCONT ×2 (01:40→12:54)
[2023-03-18 03:13] VITALS: BP 102/54; PULSE 67; RESP 18; TEMP 36.2; O2SAT 97
[2023-03-18] MEDS: Levothyroxine Sodium 50 MCG TABLET PO (05:41)
[2023-03-18 06:40] LABS: Hematocrit 33.8 % (37.0-47.0); Hemoglobin 11.3 g/dl (12.0-16.0); Mean Corpuscular HGB Conc 33.4 g/dl (31.0-35.0); Mean Corpuscular Hemoglobin 29.4 pg (27.0-33.0); Platelet Count 240 X10*3/uL (160-400); Red Blood Count 3.84 X10*6/uL (4.20-5.50); Red Cell Distribution Width 12.9 % (11.0-16.0); White Blood Count 9.2 X10*3/uL (4.8-10.8)
[2023-03-18 06:52] LABS: Anion Gap 14 (12-20); Blood Urea Nitrogen 5 mg/dL (9-16); Calcium 8.3 mg/dL (8.4-10.2); Carbon Dioxide 24 mmol/L (22-29); Chloride 98 mmol/L (96-108); Creatinine Clr Calc Pharmacy 68.4; Estimated Glomerular Filt Rate > 60; Glucose Random 68 mg/dL (60-115); Potassium 3.2 mmol/L (3.3-5.1); Sodium 133 mmol/L (135-145)
[2023-03-18 07:16] VITALS: BP 170/82; PULSE 84; RESP 16; TEMP 36.6; O2SAT 98
[2023-03-18 07:26] LABS: Glucose, Whole Blood 78 mg/dL (60-115)
[2023-03-18] MEDS: Aspirin Enteric Coated 81 MG TABLET.DR PO (08:26)
[2023-03-18] MEDS: Metoprolol Succinate ER 50 MG TAB.ER.24H PO (08:26)
[2023-03-18] MEDS: Valsartan 160 MG TABLET PO (08:27)
[2023-03-18] MEDS: Potassium Chloride Packet 20 MEQ PACKET PO (08:27)
[2023-03-18] MEDS: Escitalopram Oxalate 20 MG TABLET PO (08:27)
[2023-03-18] MEDS: DULoxetine HCl 20 MG CAPSULE.DR PO (08:27)
[2023-03-18] MEDS: Atorvastatin Calcium 40 MG TABLET PO (08:28)
[2023-03-18] MEDS: Memantine HCl 10 MG TABLET PO (08:28)
[2023-03-18] MEDS: Acetaminophen 325 MG TABLET 650 MG PO ×2 (08:28→16:06)
[2023-03-18] MEDS: glipiZIDE XL 10 MG TAB.ER.24 PO (08:28)
[2023-03-18 11:11] LABS: Glucose, Whole Blood 211 mg/dL (60-115)
[2023-03-18] MEDS: Insulin Lispro 100 UNIT/ML 3 ML VIAL SUBCUT (12:11)
[2023-03-18] MEDS: cefTRIAXone sodium 1 GM in 0.9 % Sodium Chloride 50 ML IV (12:13)
--- NOTE | 2023-03-18 13:04 | PHA.MEDREC ---
Pharmacy Consult ? Medication Reconciliation Pharmacy has completed the medication reconciliation.MED REC COMPLETE BY WAQAS
[2023-03-18 13:18] VITALS: BP 170/82; PULSE 84; O2SAT 98
--- NOTE | 2023-03-18 14:04 | HO.PM.IMPN ---
Subjective Subjective Date of Service: 03/18/23 Interval History: seen and examined this morning follow up for weakness, UTI history obtained with the assistance of a dredge worker feeling better today, no fever or chills Constitutional Constitutional: Denies chills and Denies fever(s) Cardiovascular Cardiovascular: Denies chest pain, Denies palpitations and Denies dyspnea Respiratory Respiratory: Denies cough and Denies dyspnea Gastrointestinal Gastrointestinal: Denies abdominal pain Endocrine Endocrine: Denies palpitations Physical Exam Vital Signs: Vital Signs: Last Vital Signs Temp 98 F 03/18/23 07:16 Pulse 84 03/18/23 07:16 Resp 16 03/18/23 07:16 BP 170/82 H 03/18/23 07:16 Pulse Ox 98 03/18/23 07:16 O2 Del Method Room Air 03/18/23 07:16 BMI result Body Mass Index 20.1 Const: General: cooperative, comfortable, no acute distress, alert and awake Nutritional Appearance: average body habitus Resp: Effort & Inspection: normal respiratory effort, able to speak in complete sentences, no respiratory distress and no use of accessory muscles Cardio: Rate: regular rate GI: Inspection: No distended Palpation (GI): Soft to palpation and nontender : Other: owusu in place draining clear yellow urine Neuro: General: moves all extremities and CN's II-XI intact bilaterally Extrem: General: Yes no pedal edema Objective Data Active Medications Acetaminophen (Acetaminophen 325 Mg Tablet) 650 mg PO Q6H PRN PRN Reason: Pain, Mild (Pain Scale 1-3) Last Admin: 03/18/23 08:28 Dose: 650 mg Documented By: AIRAM Aspirin (Aspirin Enteric Coated 81 Mg Tablet.) 81 mg PO DAILY [facility] Last Admin: 03/18/23 08:26 Dose: 81 mg Documented By: AIRAM Atorvastatin Calcium (Atorvastatin Calcium 40 Mg Tablet) 40 mg PO DAILY [facility] Last Admin: 03/18/23 08:28 Dose: 40 mg Documented By: AIRAM Benzonatate (Benzonatate 100 Mg Capsule) 100 mg PO TID PRN PRN Reason: Cough Dextrose (Dextrose 50 % 25 Gm/50 Ml Syringe) 25 gm IVPUSH Q15M PRN; Protocol PRN Reason: per Hypoglycemia Standing Ord. Docusate Sodium (Docusate Sodium 100 Mg Capsule) 100 mg PO DAILY PRN PRN Reason: Constipation Duloxetine HCl (Duloxetine Hcl 20 Mg Capsule.Dr) 20 mg PO DAILY [facility] Last Admin: 03/18/23 08:27 Dose: 20 mg Documented By: AIRAM Enoxaparin Sodium (Enoxaparin Sodium 40 Mg/0.4 Ml Syringe) 40 mg SUBCUT Q24H [facility] Last Admin: 03/17/23 17:37 Dose: 40 mg Documented By: NAHIDOPEYoseph Escitalopram Oxalate (Escitalopram Oxalate 20 Mg Tablet) 20 mg PO DAILY [facility] Last Admin: 03/18/23 08:27 Dose: 20 mg Documented By: AIRAM Gabapentin (Gabapentin 300 Mg Capsule) 300 mg PO BEDTIME [facility] Last Admin: 03/17/23 20:49 Dose: 300 mg Documented By: CARMELITA Glipizide (Glipizide Xl 10 Mg Tab.Er.24) 10 mg PO DAILY [facility] Last Admin: 03/18/23 08:28 Dose: 10 mg Documented By: AIRAM Glucose (Glucose Gel 15 Gm Gel..Gram.) 15 gm PO Q15M PRN; Protocol PRN Reason: per Hypoglycemia Standing Ord. Lactated Ringer's (Lr) 1,000 mls @ 100 mls/hr IVCONT .Q10H [facility] Last Admin: 03/18/23 12:54 Dose: 100 mls/hr Documented By: AIRAM Ceftriaxone Sodium 1 gm/ (Sodium Chloride) 50 mls @ 100 mls/hr IV Q24H [facility] Last Infusion: 03/18/23 12:53 Dose: Infused Documented By: AIRAM Insulin Human Lispro (Insulin Lispro 100 Unit/Ml 3 Ml Vial) 0 unit SUBCUT QIDACHS [facility]; Protocol Last Admin: 03/18/23 12:11 Dose: 4 unit Documented By: AIRAM Levothyroxine Sodium (Levothyroxine Sodium 50 Mcg Tablet) 50 mcg PO DAILY@0600 [facility] Last Admin: 03/18/23 05:41 Dose: 50 mcg Documented By: CARMELITA Melatonin (Melatonin 3 Mg Tablet) 6 mg PO BEDTIME PRN PRN Reason: Insomnia Last Admin: 03/17/23 23:14 Dose: 6 mg Documented By: CARMELITA Memantine (Memantine Hcl 10 Mg Tablet) 10 mg PO DAILY [facility] Last Admin: 03/18/23 08:28 Dose: 10 mg Documented By: AIRAM Metoprolol Succinate (Metoprolol Succinate Er 50 Mg Tab.Er.24h) 50 mg PO DAILY [facility]; Protocol Last Admin: 03/18/23 08:26 Dose: 50 mg Documented By: AIRAM Sodium Chloride (0.9 % Sodium Chloride Flush 3 Ml Syringe) 3 ml IVFLUSH QSHIFT [facility] Last Admin: 03/18/23 07:51 Dose: Not Given Documented By: LUTHER Non-Admin Reason: IV Running Valsartan (Valsartan 160 Mg Tablet) 160 mg PO DAILY [facility] Last Admin: 03/18/23 08:27 Dose: 160 mg Documented By: AIRAM Labs 03/18/23 05:45 03/18/23 05:45 Labs: Laboratory Results - last 24 hr 03/17/23 03/17/23 03/17/23 14:59 16:38 20:33 MCV MCH MCHC RDW Plt Count MPV Absolute Nucleated RBC Nucleated RBC % (auto) Anion Gap Estim Creat Clear Calc Estimated GFR POC Glucose 187 H 226 H Random Glucose Lactic Acid F/U @ 2Hr 2.1 H* Calcium 03/18/23 03/18/23 03/18/23 05:45 07:15 11:02 MCV 88.0 MCH 29.4 MCHC 33.4 RDW 12.9 Plt Count 240 D MPV 9.0 L Absolute Nucleated RBC 0.000 Nucleated RBC % (auto) 0.0 Anion Gap 14 Estim Creat Clear Calc 68.4 Estimated GFR > 60 POC Glucose 78 211 H Random Glucose 68 Lactic Acid F/U @ 2Hr Calcium 8.3 L D Microbiology Microbiology Results: Microbiology 03/17/23 Unknown Urine Culture - Preliminary Urine clean catch - Urine lopez top Culture in progress. Assessment and Plan (1) Acute hyponatremia: Status: Acute (2) Acute hypokalemia: Status: Acute (3) Acute UTI: Status: Acute Plan Pt is a Turkish-speaking 77-year-old female with a PMH significant for?HTN, HLD, fvy-ckldbrr-wpeugvbdh diabetes type 2, hypothyroidism, back surgery in 12/2022 with chronic [address]u in place, and mood disorder who presents to the ED with generalized weakness and cloudy, foul-smelling urine in her Owusu catheter. Pt will be admitted to the hospital for treatment and further evaluation of acute UTI, hyponatremia, hypokalemia, and generalized weakness. UTI related to chronic indwelling owusu owusu changed in ED on day of admission 03/17 continue IV ceftriaxone, started 03/17/2023 Follow urine culture and blood cultures Hyponatremia improved up to 133 with IVF Likely secondary to dehydration from reduced p.o. intake and HCTZ Hold HCTZ Follow BMP Hypokalemia improving, 3.2 continue po replacement acute lactic acidosis not due to sepsis, likely secondary to dehydration Ebv-ipeoxgy-rhjuurzeb diabetes type 2 hold glipizide SSI, POCs, ADA diet HLD/CAD Continue aspirin, statin HTN Hold hydrochlorothiazide Continue metoprolol, valsartan Hypothyroidism Continue levothyroxine Mood disorder Continue home meds chronic indwelling owusu dates back to back surgery in December will need outpatient urology follow up DNR/DNI Attending:?Dr. Sood DVT Prophylaxis: Lovenox dispo: PT eval pending Requires ongoing inpatient hospitalization for electrolyte imbalances and generalized weakness in the setting of acute UTI. Patient will be treated with IV antibiotics, electrolyte supplementation as necessary, and close monitoring. Quality Stroke Does the patient have a stroke diagnosis?: No VTE Prior VTE?: No VTE Risk Level:: Medical - moderate - high VTE Device Contraindication: Treatment Not Indicated VTE Drug Contraindication: N/A - Med Ordered
[2023-03-18 16:00] VITALS: BP 148/63; PULSE 78; RESP 16; TEMP 36.4; O2SAT 100
[2023-03-18] MEDS: Enoxaparin Sodium 40 MG/0.4 ML SYRINGE SUBCUT (16:07)
[2023-03-18] MEDS: 0.9 % Sodium Chloride Flush 3 ML SYRINGE IVFLUSH ×2 (16:08→20:06)
[2023-03-18 17:14] LABS: Glucose, Whole Blood 102 mg/dL (60-115)
[2023-03-18 20:00] VITALS: BP 120/67; PULSE 75; RESP 16; TEMP 36.2; O2SAT 100
[2023-03-18] MEDS: Gabapentin 300 MG CAPSULE PO (20:06)
[2023-03-18 20:17] LABS: Glucose, Whole Blood 138 mg/dL (60-115)
[2023-03-19 03:22] VITALS: BP 169/77; PULSE 75; RESP 18; TEMP 36.3; O2SAT 100
[2023-03-19] MEDS: Levothyroxine Sodium 50 MCG TABLET PO (05:27)
[2023-03-19 07:23] VITALS: BP 140/74; PULSE 84; RESP 16; TEMP 36.3; O2SAT 99
[2023-03-19 07:40] LABS: Glucose, Whole Blood 115 mg/dL (60-115)
[2023-03-19 08:12] LABS: Anion Gap 15 (12-20); Blood Urea Nitrogen 5 mg/dL (9-16); Calcium 8.6 mg/dL (8.4-10.2); Carbon Dioxide 30 mmol/L (22-29); Chloride 94 mmol/L (96-108); Creatinine Clr Calc Pharmacy 61.2; Estimated Glomerular Filt Rate > 60; Glucose Random 110 mg/dL (60-115); Potassium 3.2 mmol/L (3.3-5.1); Sodium 136 mmol/L (135-145)
[2023-03-19] MEDS: Aspirin Enteric Coated 81 MG TABLET.DR PO (08:12)
[2023-03-19] MEDS: Acetaminophen 325 MG TABLET 650 MG PO ×2 (08:12→14:00)
[2023-03-19] MEDS: Memantine HCl 10 MG TABLET PO (08:13)
[2023-03-19] MEDS: Metoprolol Succinate ER 50 MG TAB.ER.24H PO (08:13)
[2023-03-19] MEDS: Valsartan 160 MG TABLET PO (08:13)
[2023-03-19] MEDS: DULoxetine HCl 20 MG CAPSULE.DR PO (08:14)
[2023-03-19] MEDS: Escitalopram Oxalate 20 MG TABLET PO (08:14)
[2023-03-19] MEDS: Atorvastatin Calcium 40 MG TABLET PO (08:14)
[2023-03-19] MEDS: Docusate Sodium 100 MG CAPSULE PO (08:14)
[2023-03-19] MEDS: 0.9 % Sodium Chloride Flush 3 ML SYRINGE IVFLUSH ×3 (09:00→19:58)
--- NOTE | 2023-03-19 10:33 | PM.NEUROCN ---
History of Present Illness Data of Consult Service Date: 03/19/23 Primary Care Provider: Unknown Physician HPI Reason for consult: Leg weakness 77 years old woman with underlying history of diabetes and hypertension and probably also dementia who was living alone and [place] all after few months ago. Apparently she was not able to take care of herself and at 1 point fell and was on the ground for a while before she was found. Apparently she was taking to local hospital where she had some back surgery and a Sol's catheter was place that is still with her. She was unable to take care of herself. Her son brought her here and noted that she was unable to get upper walk in seemed ill and brought to emergency room. She practically has not been able to walk for a while now. She was not in any distress and was not complaining of any pain Review of Systems Review of Systems: No recent seizure fever or chills PMFSH Past Medical History Medical History (Updated 03/19/23 @ 10:37 by Donna Tamayo MD) Non-insulin dependent type 2 diabetes mellitus Hypothyroidism CAD (coronary artery disease) HLD (hyperlipidemia) HTN (hypertension) Surgical History Surgical History (Updated 03/17/23 @ 16:48 by THADDEUS Niño) History of lumbar surgery Social History Social History Household Members: Children Housing: House Do you presently have visiting nurse or other home services: No Patient Tobacco Use Status: Never used Tobacco Smoked in Last 30 Days: Yes Use of substances other than those prescribed or required for medical reasons: No Currently Displaying Signs/Symptoms of Drug Intoxication Withdrawal: No Have you been hit, kicked, punched, or otherwise hurt by someone within the past year? If so, by whom?: No Do you feel safe in your current relationship?: No Is there a partner from a previous relationship who is making you feel unsafe now?: No Are you made to feel afraid or neglected: No Advance Directives: No Advance Directives Information Provided: Yes Do you have thoughts of harming others: None Do you have a plan to hurt others: No Plan Recently lost weight without trying: No Eating poorly because of decreased appetite: No Nutrition Risks: No Nutritional Risk Patient : No : No Poor oral hygiene: No Meds Allergies Allergy/AdvReac Type Severity Reaction Status Date / Time No Known Allergies Allergy Verified 03/17/23 09:54 Active Medications: Current Medications Acetaminophen (Acetaminophen 325 Mg Tablet) 650 mg PO Q6H PRN PRN Reason: Pain, Mild (Pain Scale 1-3) Last Admin: 03/19/23 08:12 Dose: 650 mg Aspirin (Aspirin Enteric Coated 81 Mg Tablet.) 81 mg PO DAILY [facility] Last Admin: 03/19/23 08:12 Dose: 81 mg Atorvastatin Calcium (Atorvastatin Calcium 40 Mg Tablet) 40 mg PO DAILY [facility] Last Admin: 03/19/23 08:14 Dose: 40 mg Benzonatate (Benzonatate 100 Mg Capsule) 100 mg PO TID PRN PRN Reason: Cough Dextrose (Dextrose 50 % 25 Gm/50 Ml Syringe) 25 gm IVPUSH Q15M PRN; Protocol PRN Reason: per Hypoglycemia Standing Ord. Docusate Sodium (Docusate Sodium 100 Mg Capsule) 100 mg PO DAILY PRN PRN Reason: Constipation Last Admin: 03/19/23 08:14 Dose: 100 mg Duloxetine HCl (Duloxetine Hcl 20 Mg Capsule.) 20 mg PO DAILY [facility] Last Admin: 03/19/23 08:14 Dose: 20 mg Enoxaparin Sodium (Enoxaparin Sodium 40 Mg/0.4 Ml Syringe) 40 mg SUBCUT Q24H [facility] Last Admin: 03/18/23 16:07 Dose: 40 mg Escitalopram Oxalate (Escitalopram Oxalate 20 Mg Tablet) 20 mg PO DAILY [facility] Last Admin: 03/19/23 08:14 Dose: 20 mg Gabapentin (Gabapentin 300 Mg Capsule) 300 mg PO BEDTIME [facility] Last Admin: 03/18/23 20:06 Dose: 300 mg Glucose (Glucose Gel 15 Gm Gel..Gram.) 15 gm PO Q15M PRN; Protocol PRN Reason: per Hypoglycemia Standing Ord. Ceftriaxone Sodium 1 gm/ (Sodium Chloride) 50 mls @ 100 mls/hr IV Q24H [facility] Last Infusion: 03/18/23 12:53 Dose: Infused Insulin Human Lispro (Insulin Lispro 100 Unit/Ml 3 Ml Vial) 0 unit SUBCUT QIDACHS [facility]; Protocol Last Admin: 03/19/23 08:01 Dose: Not Given Levothyroxine Sodium (Levothyroxine Sodium 50 Mcg Tablet) 50 mcg PO DAILY@0600 [facility] Last Admin: 03/19/23 05:27 Dose: 50 mcg Lidocaine (Lidocaine 4 % Patch Adh..Patch) 1 patch TRANSDERMA DAILY [facility]; Protocol Melatonin (Melatonin 3 Mg Tablet) 6 mg PO BEDTIME PRN PRN Reason: Insomnia Last Admin: 03/17/23 23:14 Dose: 6 mg Memantine (Memantine Hcl 10 Mg Tablet) 10 mg PO DAILY [facility] Last Admin: 03/19/23 08:13 Dose: 10 mg Metoprolol Succinate (Metoprolol Succinate Er 50 Mg Tab.Er.24h) 50 mg PO DAILY [facility]; Protocol Last Admin: 03/19/23 08:13 Dose: 50 mg Sodium Chloride (0.9 % Sodium Chloride Flush 3 Ml Syringe) 3 ml IVFLUSH QSHIFT [facility] Last Admin: 03/19/23 09:00 Dose: 3 ml Valsartan (Valsartan 160 Mg Tablet) 160 mg PO DAILY [facility] Last Admin: 03/19/23 08:13 Dose: 160 mg Home Medications Medication Instructions Recorded Confirmed Last Taken Type aspirin 81 mg tablet,delayed 81 mg PO DAILY 03/17/23 03/17/23 Unknown History release atorvastatin 40 mg tablet 40 mg PO DAILY 03/17/23 03/17/23 Unknown History candesartan 32 mg tablet 32 mg PO DAILY 03/17/23 03/17/23 Unknown History citalopram 40 mg tablet 40 mg PO DAILY 03/17/23 03/17/23 Unknown History duloxetine 20 mg capsule,delayed 20 mg PO DAILY 03/17/23 03/17/23 Unknown History release gabapentin 300 mg capsule 300 mg PO BEDTIME 03/17/23 03/17/23 Unknown History glimepiride 4 mg tablet 4 mg PO DAILY 03/17/23 03/17/23 Unknown History glipizide 10 mg tablet, extended 10 mg PO DAILY 03/17/23 03/17/23 Unknown History release 24 hr hydrochlorothiazide 12.5 mg tablet 12.5 mg PO DAILY 03/17/23 03/17/23 Unknown History levothyroxine 50 mcg tablet 50 mcg PO DAILY 03/17/23 03/17/23 Unknown History melatonin 10 mg tablet 10 mg PO BEDTIME PRN Insomnia 03/17/23 03/17/23 Unknown History memantine 10 mg tablet 10 mg PO DAILY 03/17/23 03/17/23 Unknown History metoprolol succinate 50 mg 50 mg PO DAILY 03/17/23 03/17/23 Unknown History tablet,extended release 24 hr Physical Exam Vital Signs: Vital Signs: Last Vital Signs Temp 97.3 F 03/19/23 07:23 Pulse 84 03/19/23 07:23 Resp 16 03/19/23 07:23 BP 140/74 H 03/19/23 07:23 Pulse Ox 99 03/19/23 07:23 O2 Del Method Room Air 03/19/23 07:23 BMI result Body Mass Index 20.1 Neuro: Other: She is alert and awake communicate since Moroccan in understand simple commands and answer simple questions. Face is symmetrical. Visual dudley are full. There is no obvious arm weakness. Diffuse muscle atrophy is noted in feet and legs with absent reflexes and flexor plantars. She is able to lift her legs against gravity. Results Labs 03/18/23 05:45 03/19/23 07:35 Labs: BMP 03/19/23 07:35 Sodium 136 Potassium 3.2 L Chloride 94 L Carbon Dioxide 30 H BUN 5 L Creatinine 0.57 Calcium 8.6 Microbiology Microbiology Results: Microbiology 03/17/23 Unknown Urine clean catch - Urine lopez top Urine Culture - Preliminary Gram negative tevin 03/17/23 12:28 Blood - Venous Blood Culture - Preliminary No growth after 24 hours. 03/17/23 12:28 Blood - Venous Blood Culture - Preliminary No growth after 24 hours. 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 As far as exact nature and severity of her situation is concerned, I recommend a noncontrast head CT to assess her brain situation and treatment of UTI with PT OT. Sol's catheter situation should be determined again to see if she really requires it. An EMG nerve conduction study of legs can be done to assess neuropathy, which can be does as an outpatient too. Procedures Date of Service Date of Service: 03/19/23
[2023-03-19] MEDS: Lidocaine 4 % Patch ADH..PATCH 1 PATCH TRANSDERMA (11:13)
[2023-03-19] MEDS: cefTRIAXone sodium 1 GM in 0.9 % Sodium Chloride 50 ML IV (11:16)
[2023-03-19 11:36] LABS: Glucose, Whole Blood 229 mg/dL (60-115)
[2023-03-19] MEDS: Insulin Lispro 100 UNIT/ML 3 ML VIAL SUBCUT ×2 (12:19→21:16)
--- NOTE | 2023-03-19 12:35 | MHC.CM.PN ---
CM MET WITH PT WITH THE ASSISTANCE OF A BUSINESS TRANSFORMATION MANAGER. SHE REPORTS SHE MOVED HERE A FEW DAYS AGO FROM [place], TO LIVE WITH HER SON SHE SAYS SHE HAS NO PCP OR SERVICES AT THIS TIME, THEY ARE WORKING ON ARRANGING THEM SHE SAYS SHE IS NO LONGER AMBULATORY AND RELIES ON A W/C FOR MOBILITY SHE SAYS SHE HAS A HCP SHE COMPLETED IN [place] CM DID SUGGEST IT MAY BE BENEFICIAL TO COMPLETE ONE IN [place], PT WILL CONSIDER CM WILL REVISIT THE HCP TOPIC WITH PT TOMORROW MORNING IMM DELIVERED DCP: HOME WITH FAMILY SUPPORT SHE WILL NEED BLS TRANSPORT
--- NOTE | 2023-03-19 13:47 | HO.PM.IMPN ---
Subjective Subjective Date of Service: 03/19/23 Interval History: seen and examined this morning follow up for UTI, weakness no overnight events feeling better Review of Systems Review of Systems: Yes all other systems are reviewed and are negative Constitutional Constitutional: Denies chills and Denies fever(s) Cardiovascular Cardiovascular: Denies chest pain, Denies palpitations and Denies dyspnea Respiratory Respiratory: Denies cough and Denies dyspnea Gastrointestinal Gastrointestinal: Denies abdominal pain Endocrine Endocrine: Denies palpitations Physical Exam Vital Signs: Vital Signs: Last Vital Signs Temp 97.3 F 03/19/23 07:23 Pulse 84 03/19/23 07:23 Resp 16 03/19/23 07:23 BP 140/74 H 03/19/23 07:23 Pulse Ox 99 03/19/23 07:23 O2 Del Method Room Air 03/19/23 07:23 BMI result Body Mass Index 20.1 Const: General: cooperative, comfortable, no acute distress, alert and awake Nutritional Appearance: average body habitus Resp: Effort & Inspection: normal respiratory effort, able to speak in complete sentences, no respiratory distress and no use of accessory muscles Cardio: Rate: regular rate GI: Inspection: No distended Palpation (GI): Soft to palpation and nontender : Other: owusu in place draining clear yellow urine Neuro: General: moves all extremities and CN's II-XI intact bilaterally Extrem: Other: able to lift both legs against gravity; strength equal b/l splints on b/l feet General: Yes no pedal edema Objective Data Active Medications Acetaminophen (Acetaminophen 325 Mg Tablet) 650 mg PO Q6H PRN PRN Reason: Pain, Mild (Pain Scale 1-3) Last Admin: 03/19/23 08:12 Dose: 650 mg Documented By: AIRAM Aspirin (Aspirin Enteric Coated 81 Mg Tablet.) 81 mg PO DAILY [facility] Last Admin: 03/19/23 08:12 Dose: 81 mg Documented By: AIRAM Atorvastatin Calcium (Atorvastatin Calcium 40 Mg Tablet) 40 mg PO DAILY [facility] Last Admin: 03/19/23 08:14 Dose: 40 mg Documented By: AIRAM Benzonatate (Benzonatate 100 Mg Capsule) 100 mg PO TID PRN PRN Reason: Cough Dextrose (Dextrose 50 % 25 Gm/50 Ml Syringe) 25 gm IVPUSH Q15M PRN; Protocol PRN Reason: per Hypoglycemia Standing Ord. Docusate Sodium (Docusate Sodium 100 Mg Capsule) 100 mg PO DAILY PRN PRN Reason: Constipation Last Admin: 03/19/23 08:14 Dose: 100 mg Documented By: AIRAM Duloxetine HCl (Duloxetine Hcl 20 Mg Capsule.Dr) 20 mg PO DAILY [facility] Last Admin: 03/19/23 08:14 Dose: 20 mg Documented By: AIRAM Enoxaparin Sodium (Enoxaparin Sodium 40 Mg/0.4 Ml Syringe) 40 mg SUBCUT Q24H [facility] Last Admin: 03/18/23 16:07 Dose: 40 mg Documented By: AIRAM Escitalopram Oxalate (Escitalopram Oxalate 20 Mg Tablet) 20 mg PO DAILY [facility] Last Admin: 03/19/23 08:14 Dose: 20 mg Documented By: AIRAM Gabapentin (Gabapentin 300 Mg Capsule) 300 mg PO BEDTIME [facility] Last Admin: 03/18/23 20:06 Dose: 300 mg Documented By: CARMELITA Glucose (Glucose Gel 15 Gm Gel..Gram.) 15 gm PO Q15M PRN; Protocol PRN Reason: per Hypoglycemia Standing Ord. Ceftriaxone Sodium 1 gm/ (Sodium Chloride) 50 mls @ 100 mls/hr IV Q24H [facility] Last Infusion: 03/19/23 12:14 Dose: Infused Documented By: AIRAM Insulin Human Lispro (Insulin Lispro 100 Unit/Ml 3 Ml Vial) 0 unit SUBCUT QIDACHS [facility]; Protocol Last Admin: 03/19/23 12:19 Dose: 4 unit Documented By: AIRAM Levothyroxine Sodium (Levothyroxine Sodium 50 Mcg Tablet) 50 mcg PO DAILY@0600 [facility] Last Admin: 03/19/23 05:27 Dose: 50 mcg Documented By: CARMELITA Lidocaine (Lidocaine 4 % Patch Adh..Patch) 1 patch TRANSDERMA DAILY [facility]; Protocol Last Admin: 03/19/23 11:13 Dose: 1 patch Documented By: AIRAM Melatonin (Melatonin 3 Mg Tablet) 6 mg PO BEDTIME PRN PRN Reason: Insomnia Last Admin: 03/17/23 23:14 Dose: 6 mg Documented By: CARMELITA Memantine (Memantine Hcl 10 Mg Tablet) 10 mg PO DAILY [facility] Last Admin: 03/19/23 08:13 Dose: 10 mg Documented By: AIRAM Metoprolol Succinate (Metoprolol Succinate Er 50 Mg Tab.Er.24h) 50 mg PO DAILY [facility]; Protocol Last Admin: 03/19/23 08:13 Dose: 50 mg Documented By: AIRAM Sodium Chloride (0.9 % Sodium Chloride Flush 3 Ml Syringe) 3 ml IVFLUSH QSHIFT [facility] Last Admin: 03/19/23 09:00 Dose: 3 ml Documented By: AIRAM Valsartan (Valsartan 160 Mg Tablet) 160 mg PO DAILY [facility] Last Admin: 03/19/23 08:13 Dose: 160 mg Documented By: AIRAM Labs 03/18/23 05:45 03/19/23 07:35 Labs: Laboratory Results - last 24 hr 03/18/23 03/18/23 03/19/23 16:37 20:02 07:29 Anion Gap Estim Creat Clear Calc Estimated GFR POC Glucose 102 138 H 115 Random Glucose Calcium 03/19/23 03/19/23 07:35 11:30 Anion Gap 15 Estim Creat Clear Calc 61.2 Estimated GFR > 60 POC Glucose 229 H Random Glucose 110 Calcium 8.6 Microbiology Microbiology Results: Microbiology 03/17/23 Unknown Urine Culture - Preliminary Urine clean catch - Urine lopez top Gram negative tevin 03/17/23 12:28 Blood Culture - Preliminary Blood - Venous No growth after 24 hours. 03/17/23 12:28 Blood Culture - Preliminary Blood - Venous No growth after 24 hours. Assessment and Plan (1) Acute UTI: Status: Acute Plan Pt is a Eritrean-speaking 77-year-old female with a PMH significant for?HTN, HLD, oju-slrzuuz-xdlgudmil diabetes type 2, hypothyroidism, back surgery in 12/2022 with chronic [address]u in place, and mood disorder who presents to the ED with generalized weakness and cloudy, foul-smelling urine in her Owusu catheter. Pt will be admitted to the hospital for treatment and further evaluation of acute UTI, hyponatremia, hypokalemia, and generalized weakness. UTI related to chronic indwelling owusu owusu changed in ED on day of admission 03/17 continue IV ceftriaxone, started 03/17/2023 urine culture growing GNR blood cultures negative to date Hyponatremia resolved with IVF Likely secondary to dehydration from reduced p.o. intake and HCTZ HCTZ on hold Hypokalemia improving, 3.2 continue po replacement back pain, chronic had fall and subsequent surgery in the middle of december in [place] no details available son will try to bring in paperwork [place] seen by neuro, rec outpatient EMG studies for lower extremities to assess leg weakness chronic indwelling owusu dates back to back surgery in December son will try to bring in paperwork from [place] will need outpatient urology follow up acute lactic acidosis not due to sepsis, likely secondary to dehydration Hte-hltrvdl-dnwozjsad diabetes type 2 hold glipizide SSI, POCs, ADA diet HLD/CAD Continue aspirin, statin, BB HTN Hold hydrochlorothiazide Continue metoprolol, valsartan Hypothyroidism Continue levothyroxine Mood disorder Continue home meds dementia, unspecified, mild pt alert and oriented continue baseline namenda seen by neuro - rec brain CT DNR/DNI Attending:?Dr. Sood DVT Prophylaxis: Lovenox dispo: seen by PT rec STR vs acute rehab Requires ongoing inpatient hospitalization for electrolyte imbalances and generalized weakness in the setting of acute UTI. Patient will be treated with IV antibiotics, electrolyte supplementation as necessary, and close monitoring. Quality Stroke Does the patient have a stroke diagnosis?: No VTE Prior VTE?: No VTE Risk Level:: Medical - moderate - high VTE Device Contraindication: Treatment Not Indicated VTE Drug Contraindication: N/A - Med Ordered
[2023-03-19] MEDS: Potassium Chloride Packet 20 MEQ PACKET 40 MEQ PO (14:00)
[2023-03-19 16:00] VITALS: BP 149/74; PULSE 72; RESP 16; TEMP 36.8; O2SAT 97
[2023-03-19 16:20] LABS: Glucose, Whole Blood 133 mg/dL (60-115)
[2023-03-19] MEDS: Enoxaparin Sodium 40 MG/0.4 ML SYRINGE SUBCUT (17:05)
[2023-03-19] MEDS: Gabapentin 300 MG CAPSULE PO (19:58)
[2023-03-19 20:00] VITALS: BP 137/64; PULSE 79; RESP 16; TEMP 36.5; O2SAT 100
[2023-03-19 21:09] LABS: Glucose, Whole Blood 160 mg/dL (60-115)
[2023-03-20 03:57] VITALS: BP 135/62; PULSE 82; RESP 18; TEMP 36.1; O2SAT 99
[2023-03-20] MEDS: Levothyroxine Sodium 50 MCG TABLET PO (05:46)
[2023-03-20 06:41] LABS: Anion Gap 14 (12-20); Blood Urea Nitrogen 5 mg/dL (9-16); Calcium 8.5 mg/dL (8.4-10.2); Carbon Dioxide 29 mmol/L (22-29); Chloride 95 mmol/L (96-108); Creatinine Clr Calc Pharmacy 69.8; Estimated Glomerular Filt Rate > 60; Glucose Random 75 mg/dL (60-115); Potassium 3.5 mmol/L (3.3-5.1); Sodium 134 mmol/L (135-145)
[2023-03-20 07:24] VITALS: BP 147/80; PULSE 93; RESP 16; TEMP 36.2; O2SAT 99
[2023-03-20 07:30] LABS: Glucose, Whole Blood 100 mg/dL (60-115)
[2023-03-20] MEDS: Valsartan 160 MG TABLET PO (08:54)
[2023-03-20] MEDS: Memantine HCl 10 MG TABLET PO (08:55)
[2023-03-20] MEDS: Escitalopram Oxalate 20 MG TABLET PO (08:55)
[2023-03-20] MEDS: DULoxetine HCl 20 MG CAPSULE.DR PO (08:55)
[2023-03-20] MEDS: Aspirin Enteric Coated 81 MG TABLET.DR PO (08:55)
[2023-03-20] MEDS: Lidocaine 4 % Patch ADH..PATCH 1 PATCH TRANSDERMA (08:56)
[2023-03-20] MEDS: Metoprolol Succinate ER 50 MG TAB.ER.24H PO (08:56)
[2023-03-20] MEDS: Atorvastatin Calcium 40 MG TABLET PO (08:56)
--- NOTE | 2023-03-20 09:36 | MHC.CLN ---
NUTRITION SUPPLEMENT CHANGED TO ENSURE MAX PROTEIN BID. PROVIDES 300 KCALS, 40 G PROTEIN. CONTINUE DIABETIC 2000 KCAL DIET.
[2023-03-20 10:39] VITALS: BP 147/80; PULSE 93; O2SAT 99
[2023-03-20 11:14] LABS: Glucose, Whole Blood 204 mg/dL (60-115)
[2023-03-20] MEDS: Insulin Lispro 100 UNIT/ML 3 ML VIAL SUBCUT ×3 (11:33→21:08)
[2023-03-20] MEDS: cefTRIAXone sodium 1 GM in 0.9 % Sodium Chloride 50 ML IV (11:33)
--- NOTE | 2023-03-20 12:35 | P.PNIM_ITS ---
Subjective Subjective Date of Service: 03/20/23 Interval History: follow up for UTI, weakness no overnight events feeling better Review of Systems Review of Systems: Yes all other systems are reviewed and are negative Constitutional Constitutional: Denies chills and Denies fever(s) Cardiovascular Cardiovascular: Denies chest pain, Denies palpitations and Denies dyspnea Respiratory Respiratory: Denies cough and Denies dyspnea Gastrointestinal Gastrointestinal: Denies abdominal pain Endocrine Endocrine: Denies palpitations Physical Exam 2 Vital Signs: Vital Signs: Last Vital Signs Temp 97.2 F 03/20/23 07:24 Pulse 93 03/20/23 10:39 Resp 16 03/20/23 07:24 BP 147/80 H 03/20/23 10:39 Pulse Ox 99 03/20/23 10:39 O2 Del Method Room Air 03/20/23 07:24 BMI result Body Mass Index 20.1 Appearing in no acute distress lung sounds are clear to auscultation heart regular rate rhythm, clear S1, S2 positive bowel sounds, abdomen is soft, nontender neuro patient is alert x3, no focal deficits Objective Data Active Medications Acetaminophen (Acetaminophen 325 Mg Tablet) 650 mg PO Q6H PRN PRN Reason: Pain, Mild (Pain Scale 1-3) Last Admin: 03/19/23 14:00 Dose: 650 mg Documented By: AIRAM Aspirin (Aspirin Enteric Coated 81 Mg Tablet.) 81 mg PO DAILY [facility] Last Admin: 03/20/23 08:55 Dose: 81 mg Documented By: FÁTIMA Atorvastatin Calcium (Atorvastatin Calcium 40 Mg Tablet) 40 mg PO DAILY [facility] Last Admin: 03/20/23 08:56 Dose: 40 mg Documented By: FÁTIMA Benzonatate (Benzonatate 100 Mg Capsule) 100 mg PO TID PRN PRN Reason: Cough Dextrose (Dextrose 50 % 25 Gm/50 Ml Syringe) 25 gm IVPUSH Q15M PRN; Protocol PRN Reason: per Hypoglycemia Standing Ord. Docusate Sodium (Docusate Sodium 100 Mg Capsule) 100 mg PO DAILY PRN PRN Reason: Constipation Last Admin: 03/19/23 08:14 Dose: 100 mg Documented By: AIRAM Duloxetine HCl (Duloxetine Hcl 20 Mg Capsule.) 20 mg PO DAILY [facility] Last Admin: 03/20/23 08:55 Dose: 20 mg Documented By: FÁTIMA Enoxaparin Sodium (Enoxaparin Sodium 40 Mg/0.4 Ml Syringe) 40 mg SUBCUT Q24H [facility] Last Admin: 03/19/23 17:05 Dose: 40 mg Documented By: AIRAM Escitalopram Oxalate (Escitalopram Oxalate 20 Mg Tablet) 20 mg PO DAILY [facility] Last Admin: 03/20/23 08:55 Dose: 20 mg Documented By: FÁTIMA Gabapentin (Gabapentin 300 Mg Capsule) 300 mg PO BEDTIME [facility] Last Admin: 03/19/23 19:58 Dose: 300 mg Documented By: ROSALIO Glucose (Glucose Gel 15 Gm Gel..Gram.) 15 gm PO Q15M PRN; Protocol PRN Reason: per Hypoglycemia Standing Ord. Ceftriaxone Sodium 1 gm/ (Sodium Chloride) 50 mls @ 100 mls/hr IV Q24H [facility] Last Infusion: 03/20/23 12:31 Dose: Infused Documented By: FÁTIMA Insulin Human Lispro (Insulin Lispro 100 Unit/Ml 3 Ml Vial) 0 unit SUBCUT QIDACHS [facility]; Protocol Last Admin: 03/20/23 11:33 Dose: 4 unit Documented By: FÁTIMA Levothyroxine Sodium (Levothyroxine Sodium 50 Mcg Tablet) 50 mcg PO DAILY@0600 [facility] Last Admin: 03/20/23 05:46 Dose: 50 mcg Documented By: ROSALIO Lidocaine (Lidocaine 4 % Patch Adh..Patch) 1 patch TRANSDERMA DAILY [facility]; Protocol Last Admin: 03/20/23 08:56 Dose: 1 patch Documented By: FÁTIMA Melatonin (Melatonin 3 Mg Tablet) 6 mg PO BEDTIME PRN PRN Reason: Insomnia Last Admin: 03/17/23 23:14 Dose: 6 mg Documented By: CASTILPushpa Memantine (Memantine Hcl 10 Mg Tablet) 10 mg PO DAILY [facility] Last Admin: 03/20/23 08:55 Dose: 10 mg Documented By: FÁTIMA Metoprolol Succinate (Metoprolol Succinate Er 50 Mg Tab.Er.24h) 50 mg PO DAILY [facility]; Protocol Last Admin: 03/20/23 08:56 Dose: 50 mg Documented By: FÁTIMA Sodium Chloride (0.9 % Sodium Chloride Flush 3 Ml Syringe) 3 ml IVFLUSH QSHIFT [facility] Last Admin: 03/20/23 09:04 Dose: Not Given Documented By: FÁTIMA Non-Admin Reason: Previously Administered Valsartan (Valsartan 160 Mg Tablet) 160 mg PO DAILY [facility] Last Admin: 03/20/23 08:54 Dose: 160 mg Documented By: FÁTIMA Labs 03/18/23 05:45 03/20/23 05:29 Labs: Laboratory Results - last 24 hr 03/19/23 03/19/23 03/20/23 16:10 21:00 05:29 Hold Purple Top SEE NOTE Anion Gap 14 Estim Creat Clear Calc 69.8 Estimated GFR > 60 POC Glucose 133 H 160 H Random Glucose 75 Calcium 8.5 03/20/23 03/20/23 07:26 11:10 Hold Purple Top Anion Gap Estim Creat Clear Calc Estimated GFR POC Glucose 100 204 H Random Glucose Calcium Microbiology Microbiology Results: Microbiology 03/17/23 Unknown Urine Culture - Preliminary Urine clean catch - Urine lopez top Escherichia coli Klebsiella pneumoniae 03/17/23 12:28 Blood Culture - Preliminary Blood - Venous No growth after 48 hours. 03/17/23 12:28 Blood Culture - Preliminary Blood - Venous No growth after 48 hours. Assessment and Plan (1) Acute UTI: Status: Acute Plan Pt is a Yi-speaking 77-year-old female with a PMH significant for?HTN, HLD, ajo-cmarcnj-yknzhyoge diabetes type 2, hypothyroidism, back surgery in 12/2022 with chronic [address] in place, and mood disorder who presents to the ED with generalized weakness and cloudy, foul-smelling urine in her Owusu catheter. Pt will be admitted to the hospital for treatment and further evaluation of acute UTI, hyponatremia, hypokalemia, and generalized weakness. UTI related to chronic indwelling owusu owusu changed in ED on day of admission 03/17 continue IV ceftriaxone, started 03/17/2023 urine culture growing Ecoli and Klebsiella blood cultures negative to date Hyponatremia resolved with IVF Likely secondary to dehydration from reduced p.o. intake and HCTZ HCTZ on hold Hypokalemia. resolved continue po replacement back pain, chronic had fall and subsequent surgery in the middle of december in [place] son will try to bring in paperwork [place] seen by neuro, rec outpatient EMG studies for lower extremities to assess leg weakness chronic indwelling owusu dates back to back surgery in December son will try to bring in paperwork from [place] will need outpatient urology follow up acute lactic acidosis not due to sepsis, likely secondary to dehydration Wic-mfocvoj-cajhpnthk diabetes type 2 hold glipizide SSI, POCs, ADA diet HLD/CAD Continue aspirin, statin, BB HTN Hold hydrochlorothiazide Continue metoprolol, valsartan Hypothyroidism Continue levothyroxine Mood disorder Continue home meds dementia, unspecified, mild pt alert and oriented continue baseline namenda seen by neuro - rec brain CT DNR/DNI Attending:?Dr. Cochran DVT Prophylaxis: Lovenox dispo: seen by PT rec STR vs acute rehab Requires ongoing inpatient hospitalization for electrolyte imbalances and generalized weakness in the setting of acute UTI. Patient will be treated with IV antibiotics, electrolyte supplementation as necessary, and close monitoring. Quality Stroke Does the patient have a stroke diagnosis?: No VTE Prior VTE?: No VTE Risk Level:: Medical - moderate - high VTE Device Contraindication: Treatment Not Indicated VTE Drug Contraindication: N/A - Med Ordered
--- NOTE | 2023-03-20 13:22 | MHC.SL.SWA ---
Speech Pathologist Impression: Oral phase dysphagia Risk of Aspiration Due to: None Dysphasia Diet Status: DOWNGRADE TO NDD3 Liquid Consistency and Strategies for Safe Swallow: Liquid Intake Recommendation: Thin Liquid Intake Strategies: Small Sips Solid Food Consistency: Dietary Recommendations: Chopped/Advanced (NDD3) Oral Medication Intake: Whole with Liquid Please contact the pharmacy regarding appropriate crushable or liquid drug formulations that are available whenever modified delivery is recommended. Compensatory Strategies and Precautions to be Taken for Safe Swallow: Sitting Upright (90 deg) Small Bites and Sips Alternate Liquids/Solids Rate of Ingestion Change Avoid Specific Foods Supervision While Eating and Drinking for Safe Swallow: Intermittent Supervision Foods to Avoid: Hard, dry, or sticky solids Swallowing Recommended Treatments: Compens. Strategy Educat. Recommendation for Speech: Inpatient Speech Therapy Comment: SHIELD CLEANER to f/u 1-2x to monitor tolerance Improvement Lead Clinican/Clinical Fellow: No Supervisory Statement: I have reviewed and agree with the student/clinical fellow's documentation: N/A Speech Language Pathologist: Margarette Francisco M.A., CCC-SHIELD CLEANER
--- NOTE | 2023-03-20 15:00 | MHC.CM.PN ---
Addendum entered by Maria D Villanueva RN 03/20/23 16:27: HCP completed with patient, son named as agent. Bed offer from [facility] pending auth. CM will follow. Original Note: PT recommending acute rehab. Referrals sent, but no bed offers from 3 local [facility] noting that patient does not meet level of care. Patient recently came from [place] and has [employer] Medicare Managed Plan. Referrals sent to STR's. Discussed with son, who states he cannot care for his mother at home. Awaiting referral responses.
[2023-03-20 15:24] VITALS: BP 141/64; PULSE 88; RESP 18; TEMP 36.1; O2SAT 99
[2023-03-20 16:45] LABS: Glucose, Whole Blood 166 mg/dL (60-115)
[2023-03-20] MEDS: 0.9 % Sodium Chloride Flush 3 ML SYRINGE IVFLUSH ×2 (17:12→20:18)
[2023-03-20] MEDS: Enoxaparin Sodium 40 MG/0.4 ML SYRINGE SUBCUT (17:12)
[2023-03-20 19:58] VITALS: BP 119/68; PULSE 87; RESP 18; TEMP 36.2; O2SAT 97
[2023-03-20] MEDS: Acetaminophen 325 MG TABLET 650 MG PO (20:17)
[2023-03-20] MEDS: Gabapentin 300 MG CAPSULE PO (20:17)
[2023-03-20 20:35] LABS: Glucose, Whole Blood 175 mg/dL (60-115)
[2023-03-21 03:00] VITALS: BP 130/62; PULSE 84; RESP 18; TEMP 36.7; O2SAT 100
[2023-03-21] MEDS: Levothyroxine Sodium 50 MCG TABLET PO (05:48)
[2023-03-21 07:03] VITALS: BP 149/68; PULSE 97; RESP 17; TEMP 36.1; O2SAT 99
[2023-03-21 07:09] LABS: Glucose, Whole Blood 147 mg/dL (60-115)
[2023-03-21] MEDS: Atorvastatin Calcium 40 MG TABLET PO (10:27)
[2023-03-21] MEDS: Aspirin Enteric Coated 81 MG TABLET.DR PO (10:27)
[2023-03-21] MEDS: Valsartan 160 MG TABLET PO (10:27)
[2023-03-21] MEDS: Metoprolol Succinate ER 50 MG TAB.ER.24H PO (10:27)
[2023-03-21] MEDS: Escitalopram Oxalate 20 MG TABLET PO (10:27)
[2023-03-21] MEDS: DULoxetine HCl 20 MG CAPSULE.DR PO (10:27)
[2023-03-21] MEDS: Lidocaine 4 % Patch ADH..PATCH 1 PATCH TRANSDERMA (10:28)
[2023-03-21] MEDS: Memantine HCl 10 MG TABLET PO (10:28)
[2023-03-21] MEDS: cefTRIAXone sodium 1 GM in 0.9 % Sodium Chloride 50 ML IV (10:38)
--- NOTE | 2023-03-21 11:01 | MHC.SL.DTX ---
Dysphagia Diet modifications: Last documented Solid diet consistencies: Chopped/Advanced (NDD3) Last documented Liquid consistency: Thin Changes made to current diet?: No Liquid Consistency and Strategies: Liquid Intake Recommendation: Thin Compensatory Strategies for Safe Swallow: Small Sips Compensatory Strategies for Safe Swallow(b): Sitting Upright (90 deg) Small Bites and Sips Alternate Liquids/Solids Rate of Ingestion Change Avoid Specific Foods Solid Food Consistency: Dietary Recommendations: Chopped/Advanced (NDD3) Oral Medication Intake: Whole with Liquid Strategies and Precautions to be Taken for Safe Swallow: Sitting Upright (90 deg) Small Bites and Sips Alternate Liquids/Solids Rate of Ingestion Change Avoid Specific Foods Supervision While Eating and/Drinking: Intermittent Supervision Foods to Avoid: Hard, dry, or sticky solids Swallowing Recommended Treatments: Compens. Strategy Educat. Level of Impact on: Daily activities: None Interpersonal interactions: None Education: None Employment: None Community: None Prognosis for Improvement: Good Recommendation for Speech: Inpatient Speech Therapy Comment: When asked, Pt is content with her dietary choices and makes no requests for alteration at this time. No further AUTOS DISASSEMBLER intervention required as she is demonstrating her functional baseline. Customer Supply Coordinator Clinican/Clinical Fellow: No Supervisory Statement: I have reviewed and agree with the student/clinical fellow's documentation: N/A Speech Language Pathologist: Valerio Hemphill M.A., CCC-AUTOS DISASSEMBLER
[2023-03-21 11:10] LABS: Glucose, Whole Blood 385 mg/dL (60-115)
--- NOTE | 2023-03-21 11:33 | HO.PM.IMPN ---
Subjective Subjective Date of Service: 03/21/23 Interval History: follow up for UTI, weakness no overnight events feeling better Review of Systems Review of Systems: Yes all other systems are reviewed and are negative Constitutional Constitutional: Denies chills and Denies fever(s) Cardiovascular Cardiovascular: Denies chest pain, Denies palpitations and Denies dyspnea Respiratory Respiratory: Denies cough and Denies dyspnea Gastrointestinal Gastrointestinal: Denies abdominal pain Endocrine Endocrine: Denies palpitations Physical Exam Vital Signs: Vital Signs: Last Vital Signs Temp 97 F 03/21/23 07:03 Pulse 97 03/21/23 07:03 Resp 17 03/21/23 07:03 BP 149/68 H 03/21/23 07:03 Pulse Ox 99 03/21/23 07:03 O2 Del Method Room Air 03/21/23 07:03 BMI result Body Mass Index 20.1 Appearing in no acute distress lung sounds are clear to auscultation heart regular rate rhythm, clear S1, S2 positive bowel sounds, abdomen is soft, nontender neuro patient is alert x3, no focal deficits Objective Data Active Medications Acetaminophen (Acetaminophen 325 Mg Tablet) 650 mg PO Q6H PRN PRN Reason: Pain, Mild (Pain Scale 1-3) Last Admin: 03/20/23 20:17 Dose: 650 mg Documented By: ROSALIO Aspirin (Aspirin Enteric Coated 81 Mg Tablet.) 81 mg PO DAILY [facility] Last Admin: 03/21/23 10:27 Dose: 81 mg Documented By: FÁTIMA Atorvastatin Calcium (Atorvastatin Calcium 40 Mg Tablet) 40 mg PO DAILY [facility] Last Admin: 03/21/23 10:27 Dose: 40 mg Documented By: FÁTIMA Benzonatate (Benzonatate 100 Mg Capsule) 100 mg PO TID PRN PRN Reason: Cough Dextrose (Dextrose 50 % 25 Gm/50 Ml Syringe) 25 gm IVPUSH Q15M PRN; Protocol PRN Reason: per Hypoglycemia Standing Ord. Docusate Sodium (Docusate Sodium 100 Mg Capsule) 100 mg PO DAILY PRN PRN Reason: Constipation Last Admin: 03/19/23 08:14 Dose: 100 mg Documented By: AIRAM Duloxetine HCl (Duloxetine Hcl 20 Mg Capsule.) 20 mg PO DAILY [facility] Last Admin: 03/21/23 10:27 Dose: 20 mg Documented By: FÁTIMA Enoxaparin Sodium (Enoxaparin Sodium 40 Mg/0.4 Ml Syringe) 40 mg SUBCUT Q24H [facility] Last Admin: 03/20/23 17:12 Dose: 40 mg Documented By: FÁTIMA Escitalopram Oxalate (Escitalopram Oxalate 20 Mg Tablet) 20 mg PO DAILY [facility] Last Admin: 03/21/23 10:27 Dose: 20 mg Documented By: FÁTIMA Gabapentin (Gabapentin 300 Mg Capsule) 300 mg PO BEDTIME [facility] Last Admin: 03/20/23 20:17 Dose: 300 mg Documented By: ROSALIO Glucose (Glucose Gel 15 Gm Gel..Gram.) 15 gm PO Q15M PRN; Protocol PRN Reason: per Hypoglycemia Standing Ord. Ceftriaxone Sodium 1 gm/ (Sodium Chloride) 50 mls @ 100 mls/hr IV Q24H [facility] Last Admin: 03/21/23 10:38 Dose: 100 mls/hr Documented By: FÁTIMA Insulin Human Lispro (Insulin Lispro 100 Unit/Ml 3 Ml Vial) 0 unit SUBCUT QIDACHS [facility]; Protocol Last Admin: 03/21/23 08:31 Dose: Not Given Documented By: FÁTIMA Non-Admin Reason: No Insulin Coverage Levothyroxine Sodium (Levothyroxine Sodium 50 Mcg Tablet) 50 mcg PO DAILY@0600 [facility] Last Admin: 03/21/23 05:48 Dose: 50 mcg Documented By: ROSALIO Lidocaine (Lidocaine 4 % Patch Adh..Patch) 1 patch TRANSDERMA DAILY [facility]; Protocol Last Admin: 03/21/23 10:28 Dose: 1 patch Documented By: FÁTIMA Melatonin (Melatonin 3 Mg Tablet) 6 mg PO BEDTIME PRN PRN Reason: Insomnia Last Admin: 03/17/23 23:14 Dose: 6 mg Documented By: CASTILPushpa Memantine (Memantine Hcl 10 Mg Tablet) 10 mg PO DAILY [facility] Last Admin: 03/21/23 10:28 Dose: 10 mg Documented By: FÁTIMA Metoprolol Succinate (Metoprolol Succinate Er 50 Mg Tab.Er.24h) 50 mg PO DAILY [facility]; Protocol Last Admin: 03/21/23 10:27 Dose: 50 mg Documented By: FÁTIMA Sodium Chloride (0.9 % Sodium Chloride Flush 3 Ml Syringe) 3 ml IVFLUSH QSHIFT [facility] Last Admin: 03/21/23 10:54 Dose: Not Given Documented By: FÁTIMA Non-Admin Reason: Previously Administered Valsartan (Valsartan 160 Mg Tablet) 160 mg PO DAILY [facility] Last Admin: 03/21/23 10:27 Dose: 160 mg Documented By: FÁTIMA Labs 03/18/23 05:45 03/20/23 05:29 Labs: Laboratory Results - last 24 hr 03/20/23 03/20/23 03/21/23 16:42 20:26 07:03 POC Glucose 166 H 175 H 147 H 03/21/23 11:05 POC Glucose 385 H* Microbiology Microbiology Results: Microbiology 03/17/23 Unknown Urine Culture - Preliminary Urine clean catch - Urine lopez top Escherichia coli Klebsiella pneumoniae Assessment and Plan (1) Acute UTI: Status: Acute Plan Pt is a Malay-speaking 77-year-old female with a PMH significant for?HTN, HLD, [id number]-[id number] diabetes type 2, hypothyroidism, back surgery in 12/20[address] with chronic [address] in place, and mood disorder who presents to the ED with generalized weakness and cloudy, foul-smelling urine in her Owusu catheter. Pt will be admitted to the hospital for treatment and further evaluation of acute UTI, hyponatremia, hypokalemia, and generalized weakness. UTI related to chronic indwelling owusu owusu changed in ED on day of admission 03/17 continue IV ceftriaxone, started 03/17/2023 urine culture growing Ecoli and Klebsiella blood cultures negative to date urology consult for retention, post surgical owusu cath, dates back to back surgery in December in [place] Hyponatremia resolved with IVF Likely secondary to dehydration from reduced p.o. intake and HCTZ stopped HCTZ Hypokalemia. resolved continue po replacement Wedge compression fracture of 1st lumbar vertebrae, footdrop, paravertebral abscess and T12-L1 spondylodiscitis treated with antibiotics and physical therapy (had a body jacket prescribed, unknown if used) in [place] unknown if patient has surgery seen by neuro, rec outpatient EMG studies for lower extremities to assess leg weakness Chronic indwelling owusu dates back to back surgery in December son will try to bring in paperwork from [place] will need urology follow up for possible voiding trial while inpatient acute lactic acidosis not due to sepsis, likely secondary to dehydration Pse-aldgjqn-rjqfsyxtj diabetes type 2 hold glipizide SSI, POCs, ADA diet HLD/CAD Continue aspirin, statin, BB HTN Hold hydrochlorothiazide Continue metoprolol, valsartan Hypothyroidism Continue levothyroxine Mood disorder Continue home meds dementia, unspecified, mild pt alert and oriented continue baseline namenda seen by neuro - rec brain CT DNR/DNI Attending:?Dr. Cochran DVT Prophylaxis: Lovechyna dispo: seen by PT rec STR vs acute rehab Requires ongoing inpatient hospitalization for electrolyte imbalances and generalized weakness in the setting of acute UTI. Patient will be treated with IV antibiotics, electrolyte supplementation as necessary, and close monitoring. Quality Stroke Does the patient have a stroke diagnosis?: No VTE Prior VTE?: No VTE Risk Level:: Medical - moderate - high VTE Device Contraindication: Treatment Not Indicated VTE Drug Contraindication: N/A - Med Ordered
[2023-03-21 11:46] LABS: Glucose, Whole Blood 335 mg/dL (60-115)
[2023-03-21] MEDS: Insulin Lispro 100 UNIT/ML 3 ML VIAL SUBCUT (11:54)
[2023-03-21 15:37] VITALS: BP 119/57; PULSE 85; RESP 16; TEMP 36.1; O2SAT 99
[2023-03-21 15:43] VITALS: BP 119/57; PULSE 85; O2SAT 99
[2023-03-21 16:18] LABS: Glucose, Whole Blood 105 mg/dL (60-115)
[2023-03-21 19:30] VITALS: BP 121/58; PULSE 87; RESP 16; TEMP 36.2; O2SAT 98
[2023-03-21 20:33] LABS: Glucose, Whole Blood 150 mg/dL (60-115)
[2023-03-21] MEDS: 0.9 % Sodium Chloride Flush 3 ML SYRINGE IVFLUSH (20:37)
[2023-03-21] MEDS: Enoxaparin Sodium 40 MG/0.4 ML SYRINGE SUBCUT (22:42)
[2023-03-21] MEDS: Gabapentin 300 MG CAPSULE PO (22:42)
[2023-03-21] MEDS: Mineral OiL enema 133 ML ENEMA PR (22:56)
[2023-03-22 03:09] VITALS: BP 115/58; PULSE 84; RESP 16; TEMP 36.1; O2SAT 100
--- NOTE | 2023-03-22 03:38 | PC.NURSE ---
Pt voided and was also incontinent of urine. Pt was bladder scanned and urine retaining 119mL.
[2023-03-22] MEDS: Levothyroxine Sodium 50 MCG TABLET PO (05:43)
[2023-03-22 07:29] LABS: Glucose, Whole Blood 155 mg/dL (60-115)
[2023-03-22 07:49] VITALS: BP 139/69; PULSE 96; RESP 16; TEMP 36.1; O2SAT 99
[2023-03-22] MEDS: Lidocaine 4 % Patch ADH..PATCH 1 PATCH TRANSDERMA (07:57)
[2023-03-22] MEDS: Atorvastatin Calcium 40 MG TABLET PO (07:58)
[2023-03-22] MEDS: Insulin Lispro 100 UNIT/ML 3 ML VIAL SUBCUT ×3 (07:58→21:18)
[2023-03-22] MEDS: 0.9 % Sodium Chloride Flush 3 ML SYRINGE IVFLUSH ×3 (07:58→21:19)
[2023-03-22] MEDS: DULoxetine HCl 20 MG CAPSULE.DR PO (07:58)
[2023-03-22] MEDS: Valsartan 160 MG TABLET PO (07:58)
[2023-03-22] MEDS: Escitalopram Oxalate 20 MG TABLET PO (07:58)
[2023-03-22] MEDS: Metoprolol Succinate ER 50 MG TAB.ER.24H PO (07:59)
[2023-03-22] MEDS: Memantine HCl 10 MG TABLET PO (07:59)
[2023-03-22] MEDS: Aspirin Enteric Coated 81 MG TABLET.DR PO (07:59)
--- NOTE | 2023-03-22 09:40 | P.PNIM_ITS ---
Subjective Subjective Date of Service: 03/22/23 Interval History: follow up for UTI, weakness no overnight events feeling better Review of Systems Review of Systems: Yes all other systems are reviewed and are negative Constitutional Constitutional: Denies chills and Denies fever(s) Cardiovascular Cardiovascular: Denies chest pain, Denies palpitations and Denies dyspnea Respiratory Respiratory: Denies cough and Denies dyspnea Gastrointestinal Gastrointestinal: Denies abdominal pain Endocrine Endocrine: Denies palpitations Physical Exam 2 Vital Signs: Vital Signs: Last Vital Signs Temp 97.0 F 03/22/23 07:49 Pulse 96 03/22/23 07:49 Resp 16 03/22/23 07:49 BP 139/69 03/22/23 07:49 Pulse Ox 99 03/22/23 07:49 O2 Del Method Room Air 03/22/23 07:49 BMI result Body Mass Index 20.1 Appearing in no acute distress lung sounds are clear to auscultation heart regular rate rhythm, clear S1, S2 positive bowel sounds, abdomen is soft, nontender neuro patient is alert x3, no focal deficits Objective Data Active Medications Acetaminophen (Acetaminophen 325 Mg Tablet) 650 mg PO Q6H PRN PRN Reason: Pain, Mild (Pain Scale 1-3) Last Admin: 03/20/23 20:17 Dose: 650 mg Documented By: ROSALIO Aspirin (Aspirin Enteric Coated 81 Mg Tablet.) 81 mg PO DAILY [facility] Last Admin: 03/22/23 07:59 Dose: 81 mg Documented By: PRASHANTH Atorvastatin Calcium (Atorvastatin Calcium 40 Mg Tablet) 40 mg PO DAILY [facility] Last Admin: 03/22/23 07:58 Dose: 40 mg Documented By: PRASHANTH Benzonatate (Benzonatate 100 Mg Capsule) 100 mg PO TID PRN PRN Reason: Cough Dextrose (Dextrose 50 % 25 Gm/50 Ml Syringe) 25 gm IVPUSH Q15M PRN; Protocol PRN Reason: per Hypoglycemia Standing Ord. Docusate Sodium (Docusate Sodium 100 Mg Capsule) 100 mg PO DAILY PRN PRN Reason: Constipation Last Admin: 03/19/23 08:14 Dose: 100 mg Documented By: AIRAM Duloxetine HCl (Duloxetine Hcl 20 Mg Capsule.) 20 mg PO DAILY [facility] Last Admin: 03/22/23 07:58 Dose: 20 mg Documented By: PRASHANTH Enoxaparin Sodium (Enoxaparin Sodium 40 Mg/0.4 Ml Syringe) 40 mg SUBCUT Q24H [facility] Last Admin: 03/21/23 22:42 Dose: 40 mg Documented By: CHRISTINA Escitalopram Oxalate (Escitalopram Oxalate 20 Mg Tablet) 20 mg PO DAILY [facility] Last Admin: 03/22/23 07:58 Dose: 20 mg Documented By: PRASHANTH Gabapentin (Gabapentin 300 Mg Capsule) 300 mg PO BEDTIME [facility] Last Admin: 03/21/23 22:42 Dose: 300 mg Documented By: CHRISTINA Glucose (Glucose Gel 15 Gm Gel..Gram.) 15 gm PO Q15M PRN; Protocol PRN Reason: per Hypoglycemia Standing Ord. Ceftriaxone Sodium 1 gm/ (Sodium Chloride) 50 mls @ 100 mls/hr IV Q24H [facility] Last Infusion: 03/21/23 11:57 Dose: Infused Documented By: FÁTIMA Insulin Human Lispro (Insulin Lispro 100 Unit/Ml 3 Ml Vial) 0 unit SUBCUT QIDACHS [facility]; Protocol Last Admin: 03/22/23 07:58 Dose: 2 unit Documented By: PRASHANTH Levothyroxine Sodium (Levothyroxine Sodium 50 Mcg Tablet) 50 mcg PO DAILY@0600 [facility] Last Admin: 03/22/23 05:43 Dose: 50 mcg Documented By: CHRISTINA Lidocaine (Lidocaine 4 % Patch Adh..Patch) 1 patch TRANSDERMA DAILY [facility]; Protocol Last Admin: 03/22/23 07:57 Dose: 1 patch Documented By: PRASHANTH Melatonin (Melatonin 3 Mg Tablet) 6 mg PO BEDTIME PRN PRN Reason: Insomnia Last Admin: 03/17/23 23:14 Dose: 6 mg Documented By: CASTILPushpa Memantine (Memantine Hcl 10 Mg Tablet) 10 mg PO DAILY [facility] Last Admin: 03/22/23 07:59 Dose: 10 mg Documented By: PRASHANTH Metoprolol Succinate (Metoprolol Succinate Er 50 Mg Tab.Er.24h) 50 mg PO DAILY [facility]; Protocol Last Admin: 03/22/23 07:59 Dose: 50 mg Documented By: PRASHANTH Sodium Chloride (0.9 % Sodium Chloride Flush 3 Ml Syringe) 3 ml IVFLUSH QSHIFT [facility] Last Admin: 03/22/23 07:58 Dose: 3 ml Documented By: PRASHANTH Valsartan (Valsartan 160 Mg Tablet) 160 mg PO DAILY [facility] Last Admin: 03/22/23 07:58 Dose: 160 mg Documented By: PRASHANTH Labs 03/18/23 05:45 03/20/23 05:29 Labs: Laboratory Results - last 24 hr 03/21/23 03/21/23 03/21/23 11:05 11:43 16:13 POC Glucose 385 H* 335 H 105 03/21/23 03/22/23 20:29 07:26 POC Glucose 150 H 155 H Microbiology Microbiology Results: Microbiology 03/17/23 Unknown Urine Culture - Preliminary Urine clean catch - Urine lopez top Escherichia coli Klebsiella pneumoniae Assessment and Plan (1) Acute UTI: Status: Acute Plan Pt is a Slovenian-speaking 77-year-old female with a PMH significant for?HTN, HLD, rob-pgzijgf-[id number] diabetes type 2, hypothyroidism, back surgery in 12/2022 with chronic [address] in place, and mood disorder who presents to the ED with generalized weakness and cloudy, foul-smelling urine in her Owusu catheter. Pt will be admitted to the hospital for treatment and further evaluation of acute UTI, hyponatremia, hypokalemia, and generalized weakness. Wedge compression fracture of 1st lumbar vertebrae, footdrop, paravertebral abscess and T12-L1 spondylodiscitis treated with antibiotics and physical therapy (had a body jacket prescribed, unknown if used) in [place] unknown if patient has surgery seen by neuro, rec outpatient EMG studies for lower extremities to assess leg weakness Persistent back pain will check thoracic and lumbar spine CT UTI related to chronic indwelling owusu continue IV ceftriaxone, started 03/17/2023 urine culture growing Ecoli and Klebsiella blood cultures negative to date urology consult for retention, post surgical foleycath, dates back to back surgery in December in [place] Owusu catheter removed 03/21/23 and patient voiding on her own Hyponatremia resolved with IVF Likely secondary to dehydration from reduced p.o. intake and HCTZ stopped HCTZ Hypokalemia. resolved continue po replacement acute lactic acidosis not due to sepsis, likely secondary to dehydration Hmu-vvjgpej-zodqpkfzx diabetes type 2 hold glipizide SSI, POCs, ADA diet HLD/CAD Continue aspirin, statin, BB HTN Continue metoprolol, valsartan Hydrochlorothiazide stopped due to hyponatremia Hypothyroidism Continue levothyroxine Mood disorder Continue home meds dementia, unspecified, mild pt alert and oriented continue baseline namenda seen by neuro - rec brain CT DNR/DNI Attending:?Dr. Cochran DVT Prophylaxis: Lovenox dispo: seen by PT rec STR vs acute rehab Requires ongoing inpatient hospitalization for electrolyte imbalances and generalized weakness in the setting of acute UTI. Patient will be treated with IV antibiotics, electrolyte supplementation as necessary, and close monitoring. Quality Stroke Does the patient have a stroke diagnosis?: No VTE Prior VTE?: No VTE Risk Level:: Medical - moderate - high VTE Device Contraindication: Treatment Not Indicated VTE Drug Contraindication: N/A - Med Ordered
[2023-03-22 10:07] VITALS: BP 139/69; PULSE 96; O2SAT 99
--- NOTE | 2023-03-22 11:09 | P.CNUR_ITS ---
History of Present Illness Consult details Consult date: 03/22/23 Requesting physician: Nancy Mccarty Narrative: Yakut-speaking 77-year-old female with a PMH significant for?HTN, HLD, mez-ssflhlf-edzsazoso diabetes type 2, hypothyroidism, and mood disorder, back surgery in 12/20[address] in [address], who presents to the ED on 03/17/23 with generalized weakness and Sol catheter. The patient resides in [place], she had a fall at home in December of this year, requiring some kind of spinal injury that required surgery. Patient had Sol catheter was placed at that time and has been in place every since. CT of abdomen/pelvis showed no acute intra-abdominal process, She has been treated with IV ceftriaxone for UTI. Review of Systems 2 Review of Systems: 10 point ROS negative other than stated in HPI PMFSH Past Medical History Medical History Non-insulin dependent type 2 diabetes mellitus Hypothyroidism CAD (coronary artery disease) HLD (hyperlipidemia) HTN (hypertension) Surgical History Surgical History History of lumbar surgery Social History Social History Household Members: Children Housing: House Do you presently have visiting nurse or other home services: No Patient Tobacco Use Status: Never used Tobacco Smoked in Last 30 Days: Yes Use of substances other than those prescribed or required for medical reasons: No Currently Displaying Signs/Symptoms of Drug Intoxication Withdrawal: No Have you been hit, kicked, punched, or otherwise hurt by someone within the past year? If so, by whom?: No Do you feel safe in your current relationship?: No Is there a partner from a previous relationship who is making you feel unsafe now?: No Are you made to feel afraid or neglected: No Advance Directives: No Advance Directives Information Provided: Yes Do you have thoughts of harming others: None Do you have a plan to hurt others: No Plan Recently lost weight without trying: No Eating poorly because of decreased appetite: No Nutrition Risks: No Nutritional Risk Patient : No : No Poor oral hygiene: No service: No Meds Allergies Allergy/AdvReac Type Severity Reaction Status Date / Time No Known Allergies Allergy Verified 03/17/23 09:54 Active Medications: Current Medications Acetaminophen (Acetaminophen 325 Mg Tablet) 650 mg PO Q6H PRN PRN Reason: Pain, Mild (Pain Scale 1-3) Last Admin: 03/20/23 20:17 Dose: 650 mg Aspirin (Aspirin Enteric Coated 81 Mg Tablet.) 81 mg PO DAILY [facility] Last Admin: 03/22/23 07:59 Dose: 81 mg Atorvastatin Calcium (Atorvastatin Calcium 40 Mg Tablet) 40 mg PO DAILY [facility] Last Admin: 03/22/23 07:58 Dose: 40 mg Benzonatate (Benzonatate 100 Mg Capsule) 100 mg PO TID PRN PRN Reason: Cough Dextrose (Dextrose 50 % 25 Gm/50 Ml Syringe) 25 gm IVPUSH Q15M PRN; Protocol PRN Reason: per Hypoglycemia Standing Ord. Docusate Sodium (Docusate Sodium 100 Mg Capsule) 100 mg PO DAILY PRN PRN Reason: Constipation Last Admin: 03/19/23 08:14 Dose: 100 mg Duloxetine HCl (Duloxetine Hcl 20 Mg Capsule.) 20 mg PO DAILY [facility] Last Admin: 03/22/23 07:58 Dose: 20 mg Enoxaparin Sodium (Enoxaparin Sodium 40 Mg/0.4 Ml Syringe) 40 mg SUBCUT Q24H [facility] Last Admin: 03/21/23 22:42 Dose: 40 mg Escitalopram Oxalate (Escitalopram Oxalate 20 Mg Tablet) 20 mg PO DAILY [facility] Last Admin: 03/22/23 07:58 Dose: 20 mg Gabapentin (Gabapentin 300 Mg Capsule) 300 mg PO BEDTIME [facility] Last Admin: 03/21/23 22:42 Dose: 300 mg Glucose (Glucose Gel 15 Gm Gel..Gram.) 15 gm PO Q15M PRN; Protocol PRN Reason: per Hypoglycemia Standing Ord. Ceftriaxone Sodium 1 gm/ (Sodium Chloride) 50 mls @ 100 mls/hr IV Q24H [facility] Last Infusion: 03/21/23 11:57 Dose: Infused Insulin Human Lispro (Insulin Lispro 100 Unit/Ml 3 Ml Vial) 0 unit SUBCUT QIDACHS [facility]; Protocol Last Admin: 03/22/23 07:58 Dose: 2 unit Levothyroxine Sodium (Levothyroxine Sodium 50 Mcg Tablet) 50 mcg PO DAILY@0600 [facility] Last Admin: 03/22/23 05:43 Dose: 50 mcg Lidocaine (Lidocaine 4 % Patch Adh..Patch) 1 patch TRANSDERMA DAILY [facility]; Protocol Last Admin: 03/22/23 07:57 Dose: 1 patch Melatonin (Melatonin 3 Mg Tablet) 6 mg PO BEDTIME PRN PRN Reason: Insomnia Last Admin: 03/17/23 23:14 Dose: 6 mg Memantine (Memantine Hcl 10 Mg Tablet) 10 mg PO DAILY [facility] Last Admin: 03/22/23 07:59 Dose: 10 mg Metoprolol Succinate (Metoprolol Succinate Er 50 Mg Tab.Er.24h) 50 mg PO DAILY [facility]; Protocol Last Admin: 03/22/23 07:59 Dose: 50 mg Sodium Chloride (0.9 % Sodium Chloride Flush 3 Ml Syringe) [facility] Last Admin: 03/22/23 07:58 Dose: 3 ml Valsartan (Valsartan 160 Mg Tablet) 160 mg PO DAILY [facility] Last Admin: 03/22/23 07:58 Dose: 160 mg Home Medications Medication Instructions Recorded Confirmed Last Taken Type aspirin 81 mg tablet,delayed 81 mg PO DAILY 03/17/23 03/17/23 Unknown History release atorvastatin 40 mg tablet 40 mg PO DAILY 03/17/23 03/17/23 Unknown History candesartan 32 mg tablet 32 mg PO DAILY 03/17/23 03/17/23 Unknown History citalopram 40 mg tablet 40 mg PO DAILY 03/17/23 03/17/23 Unknown History duloxetine 20 mg capsule,delayed 20 mg PO DAILY 03/17/23 03/17/23 Unknown History release gabapentin 300 mg capsule 300 mg PO BEDTIME 03/17/23 03/17/23 Unknown History glimepiride 4 mg tablet 4 mg PO DAILY 03/17/23 03/17/23 Unknown History glipizide 10 mg tablet, extended 10 mg PO DAILY 03/17/23 03/17/23 Unknown History release 24 hr hydrochlorothiazide 12.5 mg tablet 12.5 mg PO DAILY 03/17/23 03/17/23 Unknown History levothyroxine 50 mcg tablet 50 mcg PO DAILY 03/17/23 03/17/23 Unknown History melatonin 10 mg tablet 10 mg PO BEDTIME PRN Insomnia 03/17/23 03/17/23 Unknown History memantine 10 mg tablet 10 mg PO DAILY 03/17/23 03/17/23 Unknown History metoprolol succinate 50 mg 50 mg PO DAILY 03/17/23 03/17/23 Unknown History tablet,extended release 24 hr Physical Exam 2 Vital Signs: Vital Signs: Last Vital Signs Temp 97.0 F 03/22/23 07:49 Pulse 96 03/22/23 10:07 Resp 16 03/22/23 07:49 BP 139/69 03/22/23 10:07 Pulse Ox 99 03/22/23 10:07 O2 Del Method Room Air 03/22/23 07:49 BMI result Body Mass Index 20.1 Const: General: cooperative and no acute distress O rientation/consciousness: patient oriented x3 HEENT: Head: Yes normal to inspection, Yes normocephalic and Yes atraumatic Eyes: Conjunctivae: conjunctivae normal Neck: Neck: Yes normal visual inspection and Yes trachea midline Chest: Chest palpation & inspection: normal inspection of the chest Resp: Effort & Inspection: normal respiratory effort Cardio: Rate: regular rate GI: Inspection: Yes normal to inspection Palpation (GI): Soft to palpation Neuro: General: patient oriented x3 Extrem: General: No edema Psych: Appearance: grossly normal Results Labs 03/18/23 05:45 03/20/23 05:29 Labs: Abnormal lab results 03/21/23 03/21/23 03/21/23 Range/Units 11:05 11:43 20:29 POC Glucose 385 H* 335 H 150 H (60-115) mg/dL 03/22/23 Range/Units 07:26 POC Glucose 155 H (60-115) mg/dL Urine 03/17/23 Range/Units 11:08 Urine Color Yellow Urine Appearance Turbid Urine pH 7.5 (5.0-9.0) Ur Specific [place] 1.020 (1.005-1.025) Urine Protein 30 (1+) H (Neg-Trace) mg/dL Urine Glucose (UA) >=1000 H (Negative) mg/dL Collected: 03/17/23-UNK Status: RES Req#: [id number] Received: 03/17/23-1242 Source: [facility] Sp Desc: Urine lopez Subm Dr: Adrianne Link Ordered: Urine Culture Procedure Result Verified Site Urine Culture Preliminary 03/21/23 Organism 1 Escherichia coli Quant > 100,000 cfu/mL Organism 2 Klebsiella pneumoniae Quant > 100,000 cfu/mL Organism #2 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 The isolate is being sent to a reference laboratory for confirmation. Possible CRE sent by a secure message and confirmed by Prakash Lucas on 03/21/23 at 0756 by JAGDISH. Results of possible CRE called to and read back by MAYE on 03/21/23 at 0801 by JAGDISH. E coli M.I.C. RX --------- --- Ampicillin 16 I Ceftriaxone <=0.25 S Gentamicin <=1 S Levofloxacin <=0.12 S Nitrofurantoin <=16 S Trimethoprim/Sulfamethoxazole <=[address] scan - pelvis: report reviewed and image reviewed Abdominal ultrasound report/results: report reviewed and image reviewed Additional studies: Date of Service: 03/17/23 EXAMINATION: CT ABDOMEN AND PELVIS WITHOUT CONTRAST CLINICAL INFORMATION: Lower back pain. COMPARISON: None available. TECHNIQUE: Multidetector volumetric imaging was performed from the superior aspect of the liver through the pubic symphysis. Sagittal and coronal reformatted images were obtained on the technologist's workstation. This CT examination was performed using dose optimization techniques as appropriate, variously including the following: *Automated exposure control *Adjustment of mA and/or kV according to patient size (this includes techniques or standardized protocols for targeted exams where dose is matched to indication/reason for exam; i.e. extremities or head) *Use of iterative reconstruction technique DLP: 283 mGy-cm FINDINGS: LUNG BASES: The lung bases are clear. The heart size is normal. LIVER, GALLBLADDER, AND BILIARY TREE: The liver is normal in size, shape, and attenuation. No focal hepatic lesion or biliary ductal dilatation is present. The gallbladder is not visualized. PANCREAS: Unremarkable. SPLEEN: Unremarkable. ADRENAL GLANDS: Unremarkable. KIDNEYS AND URETERS: The kidneys are normal in size, shape, and attenuation. No hydronephrosis, hydroureter, or calculi seen. No perinephric stranding. BLADDER: The bladder is nondistended with a Sol's catheter within GASTROINTESTINAL TRACT: Scattered moderate stool, diverticuli and gas is seen in colon without distention. The small bowel loops are normal caliber. Appendix is not visualized the stomach is nondistended ABDOMINAL WALL: No significant hernia is appreciated. LYMPH NODES: Normal. VASCULAR: Unremarkable. PELVIC VISCERA: The uterus is at anteverted and appears grossly unremarkable. There are several calcification left adnexa likely ovarian origin. Punctate calcifications in the right ovary. OSSEOUS STRUCTURES: There is old compression fracture T12 vertebra and superior endplate L1 vertebra with a bridging osteophyte. IMPRESSION: 1. No acute intra-abdominal process seen. 2. Mild constipation. Scattered colonic diverticulosis without diverticulitis. Assessment and Plan (1) Failure to thrive in adult: Status: Acute (2) Generalized weakness: Status: Acute (3) Sol catheter in place on admission: Status: Acute (4) UTI (urinary tract infection): Status: Acute Plan UTI treated with IV Rocephen Sol removed per Urology Monitor Bladder scan PVR Procedures Date of Service Date of Service: 03/22/23
[2023-03-22 11:22] LABS: Glucose, Whole Blood 219 mg/dL (60-115)
[2023-03-22] MEDS: cefTRIAXone sodium 1 GM in 0.9 % Sodium Chloride 50 ML IV (12:53)
--- NOTE | 2023-03-22 13:42 | MHC.CM.PN ---
Addendum entered by Maria D Villanueva RN 03/22/23 14:51: [facility] referral placed to assess for any home services patient may be eligible for. Addendum entered by Maria D Villanueva RN 03/22/23 14:23: UPDATE FROM [facility] - THEY ARE NOT ABLE TO ACCEPT PTS INSURANCE. NO OTHER BED OFFERS DUE TO INSURANCE PLAN WHICH IS A MANAGED MEDICARE OUT OF [place]. CM SPOKE WITH SON, JARVIS. HE IS WORKING ON CHANGING INSURANCE AND PROVIDED CONTACT INFORMATION FOR AN INDIVIDUAL THAT IS ASSISTING - MICHELLE EM TIFFANY [phone]. JARVIS STATES MICHELLE IS WITH AN ORGANIZATION, BUT UNSURE OF NAME. LM FOR MICHELLE TO CALL THIS CM. ALSO SENT FINANCIAL SERVICES REFERRAL, WITH SON'S PERMISSION. FINANCIAL COUNSELOR WILL REACH OUT TO SON TODAY. PER SON, WHEN PATIENT ARRIVED FROM [place] ~1 WEEK AGO INITIAL PLAN WAS FOR SON & TO CARE FOR PATIENT, AND THEY WERE AWARE PATIENT IS NOT CURRENTLY WALKING. STATES HE BROUGHT HER TO THE HOSPITAL FOR EVALUATION OF UTI, AND FEELS THEY CAN CARE FOR HER AT HOME IF THEY ARE ABLE TO GET A RECLINER OR HOSPITAL BED (WAS SLEEPING ON THE COUCH PERMASTONE APPLICATOR). STATES A FRIEND MAY GIFT A BED TOMORROW. WILL KEEP CM UPDATED. UNABLE TO GET HOME SERVICES, DOES NOT HAVE A PCP. SON STATED HE WAS WORKING ON SCHEDULING APPT, BUT HAS NOT BEEN ABLE TO DO SO. TASK SENT TO CM OFFICE FOR ASSISTANCE WITH THIS. CM WILL CONTINUE TO FOLLOW. Original Note: EMR REVIEWED. PER MD ROUNDS MEDICALLY CLEARED FOR DC. PLAN REMAINS STR - [facility] AT [place] PENDING AUTH WHICH WAS SUBMITTED 03/21. CM WILL CONTINUE TO FOLLOW.
[2023-03-22 15:31] VITALS: BP 143/61; PULSE 83; RESP 16; TEMP 36.8; O2SAT 99
[2023-03-22 16:44] LABS: Glucose, Whole Blood 91 mg/dL (60-115)
[2023-03-22 19:43] VITALS: BP 139/68; PULSE 86; RESP 16; TEMP 36.7; O2SAT 100
[2023-03-22 20:32] LABS: Glucose, Whole Blood 172 mg/dL (60-115)
[2023-03-22] MEDS: Gabapentin 300 MG CAPSULE PO (21:18)
[2023-03-22] MEDS: Enoxaparin Sodium 40 MG/0.4 ML SYRINGE SUBCUT (21:19)
[2023-03-23 03:09] VITALS: BP 134/74; PULSE 85; RESP 18; TEMP 36.4; O2SAT 99
[2023-03-23] MEDS: Levothyroxine Sodium 50 MCG TABLET PO (05:44)
[2023-03-23 07:28] LABS: Glucose, Whole Blood 152 mg/dL (60-115)
[2023-03-23 07:47] VITALS: BP 145/70; PULSE 92; RESP 18; TEMP 36; O2SAT 99
[2023-03-23] MEDS: Atorvastatin Calcium 40 MG TABLET PO (09:01)
[2023-03-23] MEDS: Valsartan 160 MG TABLET PO (09:02)
[2023-03-23] MEDS: 0.9 % Sodium Chloride Flush 3 ML SYRINGE IVFLUSH ×2 (09:02→21:33)
[2023-03-23] MEDS: Insulin Lispro 100 UNIT/ML 3 ML VIAL SUBCUT ×4 (09:02→21:33)
[2023-03-23] MEDS: DULoxetine HCl 20 MG CAPSULE.DR PO (09:02)
[2023-03-23] MEDS: Escitalopram Oxalate 20 MG TABLET PO (09:02)
[2023-03-23] MEDS: Lidocaine 4 % Patch ADH..PATCH 1 PATCH TRANSDERMA (09:02)
[2023-03-23] MEDS: Metoprolol Succinate ER 50 MG TAB.ER.24H PO (09:02)
[2023-03-23] MEDS: Memantine HCl 10 MG TABLET PO (09:02)
[2023-03-23] MEDS: Aspirin Enteric Coated 81 MG TABLET.DR PO (09:02)
[2023-03-23 11:31] LABS: Glucose, Whole Blood 267 mg/dL (60-115)
[2023-03-23] MEDS: cefTRIAXone sodium 1 GM in 0.9 % Sodium Chloride 50 ML IV (11:54)
[2023-03-23] MEDS: Acetaminophen 325 MG TABLET 650 MG PO (11:55)
--- NOTE | 2023-03-23 15:12 | P.PNIM_ITS ---
Subjective Subjective Date of Service: 03/23/23 Interval History: seen and examined this morning follow up for UTI, weakness reporting lower back pain Review of Systems Review of Systems: Yes all other systems are reviewed and are negative Constitutional Constitutional: Denies chills and Denies fever(s) Cardiovascular Cardiovascular: Denies chest pain, Denies palpitations and Denies dyspnea Respiratory Respiratory: Denies cough and Denies dyspnea Gastrointestinal Gastrointestinal: Denies abdominal pain Endocrine Endocrine: Denies palpitations Physical Exam 2 Vital Signs: Vital Signs: Last Vital Signs Temp 96.8 F 03/23/23 07:47 Pulse 92 03/23/23 07:47 Resp 18 03/23/23 07:47 BP 145/70 H 03/23/23 07:47 Pulse Ox 99 03/23/23 07:47 O2 Del Method Room Air 03/23/23 07:47 BMI result Body Mass Index 20.1 Const: General: cooperative, comfortable, no acute distress, alert and awake Nutritional Appearance: average body habitus Resp: Effort & Inspection: normal respiratory effort, able to speak in complete sentences, no respiratory distress and no use of accessory muscles Cardio: Rate: regular rate GI: Inspection: No distended Palpation (GI): Soft to palpation and nontender Neuro: General: moves all extremities and CN's II-XI intact bilaterally Extrem: Other: able to move both legs but lower extremity movement limited somewhat by pain today Objective Data Active Medications Acetaminophen (Acetaminophen 325 Mg Tablet) 650 mg PO Q6H PRN PRN Reason: Pain, Mild (Pain Scale 1-3) Last Admin: 03/23/23 11:55 Dose: 650 mg Documented By: JENN Aspirin (Aspirin Enteric Coated 81 Mg Tablet.) 81 mg PO DAILY [facility] Last Admin: 03/23/23 09:02 Dose: 81 mg Documented By: JENN Atorvastatin Calcium (Atorvastatin Calcium 40 Mg Tablet) 40 mg PO DAILY [facility] Last Admin: 03/23/23 09:01 Dose: 40 mg Documented By: JENN Benzonatate (Benzonatate 100 Mg Capsule) 100 mg PO TID PRN PRN Reason: Cough Dextrose (Dextrose 50 % 25 Gm/50 Ml Syringe) 25 gm IVPUSH Q15M PRN; Protocol PRN Reason: per Hypoglycemia Standing Ord. Docusate Sodium (Docusate Sodium 100 Mg Capsule) 100 mg PO DAILY PRN PRN Reason: Constipation Last Admin: 03/19/23 08:14 Dose: 100 mg Documented By: AIRAM Duloxetine HCl (Duloxetine Hcl 20 Mg Capsule.Dr) 20 mg PO DAILY [facility] Last Admin: 03/23/23 09:02 Dose: 20 mg Documented By: JENN Enoxaparin Sodium (Enoxaparin Sodium 40 Mg/0.4 Ml Syringe) 40 mg SUBCUT Q24H [facility] Last Admin: 03/22/23 21:19 Dose: 40 mg Documented By: JOCELIN Escitalopram Oxalate (Escitalopram Oxalate 20 Mg Tablet) 20 mg PO DAILY [facility] Last Admin: 03/23/23 09:02 Dose: 20 mg Documented By: JENN Gabapentin (Gabapentin 300 Mg Capsule) 300 mg PO BEDTIME [facility] Last Admin: 03/22/23 21:18 Dose: 300 mg Documented By: JOCELIN Glucose (Glucose Gel 15 Gm Gel..Gram.) 15 gm PO Q15M PRN; Protocol PRN Reason: per Hypoglycemia Standing Ord. Ceftriaxone Sodium 1 gm/ (Sodium Chloride) 50 mls @ 100 mls/hr IV Q24H [facility] Last Infusion: 03/23/23 12:38 Dose: Infused Documented By: JENN Insulin Human Lispro (Insulin Lispro 100 Unit/Ml 3 Ml Vial) 0 unit SUBCUT QIDACHS [facility]; Protocol Last Admin: 03/23/23 11:55 Dose: 6 unit Documented By: JENN Levothyroxine Sodium (Levothyroxine Sodium 50 Mcg Tablet) 50 mcg PO DAILY@0600 [facility] Last Admin: 03/23/23 05:44 Dose: 50 mcg Documented By: JOCELIN Lidocaine (Lidocaine 4 % Patch Adh..Patch) 1 patch TRANSDERMA DAILY [facility]; Protocol Last Admin: 03/23/23 09:02 Dose: 1 patch Documented By: JENN Melatonin (Melatonin 3 Mg Tablet) 6 mg PO BEDTIME PRN PRN Reason: Insomnia Last Admin: 03/17/23 23:14 Dose: 6 mg Documented By: CASTILPushpa Memantine (Memantine Hcl 10 Mg Tablet) 10 mg PO DAILY [facility] Last Admin: 03/23/23 09:02 Dose: 10 mg Documented By: JENN Metoprolol Succinate (Metoprolol Succinate Er 50 Mg Tab.Er.24h) 50 mg PO DAILY [facility]; Protocol Last Admin: 03/23/23 09:02 Dose: 50 mg Documented By: JENN Sodium Chloride (0.9 % Sodium Chloride Flush 3 Ml Syringe) 3 ml IVFLUSH QSHIFT [facility] Last Admin: 03/23/23 09:02 Dose: 3 ml Documented By: EJNN Valsartan (Valsartan 160 Mg Tablet) 160 mg PO DAILY [facility] Last Admin: 03/23/23 09:02 Dose: 160 mg Documented By: JENN Labs 03/18/23 05:45 03/20/23 05:29 Labs: Laboratory Results - last 24 hr 03/22/23 03/22/23 03/23/23 16:38 20:26 07:22 POC Glucose 91 172 H 152 H 03/23/23 11:28 POC Glucose 267 H Microbiology Microbiology Results: Microbiology 03/17/23 12:28 Blood Culture - Final Blood - Venous No growth after 5 days. 03/17/23 12:28 Blood Culture - Final Blood - Venous No growth after 5 days. Assessment and Plan (1) UTI (urinary tract infection): Status: Acute (2) Lower back pain: Status: Acute Plan Pt is a Telugu-speaking 77-year-old female with a PMH significant for?HTN, HLD, tef-qugqvpr-cbrxrazpo diabetes type 2, hypothyroidism, back surgery in 12/2022 with chronic [address] in place, and mood disorder who presents to the ED with generalized weakness and cloudy, foul-smelling urine in her Owusu catheter. Pt will be admitted to the hospital for treatment and further evaluation of acute UTI, hyponatremia, hypokalemia, and generalized weakness. Wedge compression fracture of 1st lumbar vertebrae, footdrop, paravertebral abscess and T12-L1 spondylodiscitis treated with antibiotics and physical therapy (had a body jacket prescribed, unknown if used) in [place] unknown if patient has surgery has been in bed and nonambulatory since the end of November when she first fell seen by neuro, rec outpatient EMG studies for lower extremities to assess leg weakness has been working with PT/OT and was able to all source intelligence technician place due to persistent back pain thoracic and lumbar spine CT were obtained, shows severe spinal canal stenosis and concern over mass effect MRI of thoracic spine ordered and pending UTI related to chronic indwelling owusu continue IV ceftriaxone, started 03/17/2023. plan for 7-10 days urine culture growing Ecoli and Klebsiella - klebsiella possible CRE - being sent to reference lab for confirmation - will consult ID blood cultures negative to date urology consult for retention, post surgical foleycath, dates back to back surgery in December in [place] Owusu catheter removed 03/21/23 and patient voiding on her own Hyponatremia resolved with IVF Likely secondary to dehydration from reduced p.o. intake and HCTZ stopped HCTZ Hypokalemia. resolved continue po replacement acute lactic acidosis not due to sepsis, likely secondary to dehydration Vhw-yyxuzlo-xjxxvlkys diabetes type 2 hold glipizide SSI, POCs, ADA diet HLD/CAD Continue aspirin, statin, BB HTN Continue metoprolol, valsartan Hydrochlorothiazide stopped due to hyponatremia Hypothyroidism Continue levothyroxine Mood disorder Continue home meds dementia, unspecified, mild pt alert and oriented continue baseline namenda seen by neuro - rec brain CT - shows mild generalized volume loss DNR/DNI Attending:?Dr. Cochran DVT Prophylaxis: Lovenox dispo: seen by PT rec STR Requires ongoing inpatient hospitalization for electrolyte imbalances and generalized weakness in the setting of acute UTI. Patient will be treated with IV antibiotics, electrolyte supplementation as necessary, and close monitoring. Quality Stroke Does the patient have a stroke diagnosis?: No VTE Prior VTE?: No VTE Risk Level:: Medical - moderate - high VTE Device Contraindication: Treatment Not Indicated VTE Drug Contraindication: N/A - Med Ordered
[2023-03-23 17:05] LABS: Glucose, Whole Blood 234 mg/dL (60-115)
[2023-03-23 17:06] VITALS: BP 167/83; PULSE 83; RESP 16; TEMP 36.4; O2SAT 100
[2023-03-23] MEDS: oxyCODONE HCl Immed Release 5 MG TABLET PO (17:34)
--- NOTE | 2023-03-23 19:00 | PM.DS ---
DS: Providers Provider Date of Service: 03/24/23 Date of admission: 03/17/23 16:23 Date of discharge: 03/24/23 Primary care physician: Unknown Physician Consults: 03/18/23 15:05 Consult to Neurology Routine Consulting Provider: [facility] Reason for consultation: leg weakness after spine surgery in [place] in december Has provider been notified: No 03/21/23 11:34 Consult to Urology Routine Consulting Provider: Cyrus Crisostomo Reason for consultation: urinary retension, post surgical f/c 03/23/23 15:46 Consult to Infectious Diseases Routine Consulting Provider[place] [facility] [facility] Reason for consultation: multidrug complicated UTI, ?CRE - sending out cultures Has provider been notified: No Attending physician on discharge: Willy Cochran Discharging clinician: Kathia Bedoya DS: Diagnosis Discharge Diagnosis (1) UTI (urinary tract infection): Status: Acute (2) Lower back pain: Status: Acute (3) T12 compression fracture: Status: Acute DS: Summary Hospital Course Hospital Course: From H&P on day of admission Pt is a Montenegrin-speaking 77-year-old female with a PMH significant for?HTN, HLD, [id number]-[id number] diabetes type 2, hypothyroidism, back surgery in 12/2022 with chronic [address] in place, and mood disorder who presents to the ED with generalized weakness and cloudy, foul-smelling urine in her Owusu catheter. Pt only arrived yesterday from [place] where in June of this year she lost her . Since then pt has been depressed, eating and drinking less, and steadily declining in health until she had a fall at home in December of this year. Patient apparently lay on the floor for 2 days until anyone found her. She apparently suffered some kind of spinal injury that required surgery. Patient's son notes that a Owusu catheter was placed at that time and has been in place every since. He reports she did not receive any physical therapy either in the hospital at home and has steadily become less and less mobile since the surgery. Currently she is unable to ambulate on her own or with a walker. Due to deconditioning son went to [place] to bring the pt here to live with him. Brings her to the ED today after noticing just how weak she was and that her urine was cloudy, with some clots of blood, and foul-smelling. Pt denies fever, chills nausea, abdominal pain. Denies dysuria but endorses polyuria. No chest pain/pressure, palpitations. Denies shortness of breath. Some mild chronic lower back pain. Denies numbness or tingling in toes. In the ED pt was afebrile but tachycardic up to 108, hypertensive to 168/81, satting at 90 6% on RA. Labs were significant for WBCs 10.9, sodium 129, potassium 2.8, chloride 85, random glucose 336, lactic acid 3.1, AST 36, and ALT 77. No significant leukocytosis. H&H talat. Beta hydroxybutyrate door off. Negative for influenza a and B, RSV, COVID. UA positive for UTI. CT of abdomen/pelvis showed no acute intra-abdominal process, but did show mild constipation and scattered colonic diverticulosis without diverticulitis. EKG demonstrated sinus rhythm with PACs. Pt was treated with potassium chloride IV and p.o., IVF, and ceftriaxone. Pt will be admitted to the hospital for treatment and further evaluation of acute UTI, hyponatremia, hypokalemia, and generalized weakness. H/o Wedge compression fracture of 1st lumbar vertebrae, footdrop, paravertebral abscess and T12-L1 spondylodiscitis in [place] diagnoses in november/december of this year. treated with antibiotics and physical therapy (had a body jacket prescribed, unknown if used) in [place]. limited documentation available. Patient has been in bed and nonambulatory since the end of November when she first fell. Discussed with neurology and intially plan for outpatient EMG studies to assess leg weakness. however due to persistent back pain thoracic and lumbar spine CT were obtained, shows severe spinal canal stenosis and concern over mass effect. MRI of thoracic spine ordered and There is an acute to subacute severe compression fracture of the body of T12 with retropulsion of the inferior body into the spinal canal. There is marked compression of the lower thoracic spinal cord/conus, and there is severe central stenosis. Accounting for artifact, spinal cord signal appears normal. There is severe bilateral foraminal narrowing. Patient needs neurosurgical evaluation and will be transferred to [facility] for further work up and evaluation UTI related to chronic indwelling owusu Initially started on IV ceftriaxone, started 03/17/2023. 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 She has remained afebrile. blood cultures negative to date. was seen by urology for possible urinary retention, post surgical foleycath, dates back to back surgery in December in [place]. Her Owusu catheter removed 03/21/23 and patient voiding on her own. Hyponatremia resolved with IVF Likely secondary to dehydration from reduced p.o. intake and HCTZ stopped HCTZ Hypokalemia. resolved continue po replacement acute lactic acidosis not due to sepsis, likely secondary to dehydration Zer-lidxknq-fhyicicud diabetes type 2 hold glipizide SSI, POCs, ADA diet HLD/CAD Continue aspirin, statin, BB HTN Continue metoprolol, valsartan Hydrochlorothiazide stopped due to hyponatremia Hypothyroidism Continue levothyroxine Mood disorder Continue home meds dementia, unspecified, mild pt alert and oriented continue baseline namenda seen by neuro - rec brain CT - shows mild generalized volume loss Time Attestation Discharge coordination time: Greater than 30 minutes Quality: Safe Use of Opioids Does Pt have an Active Cancer Diagnosis on the Problem List?: No Quality: Stroke Does the patient have a stroke diagnosis?: No Physical Exam Vital Signs: Vital Signs: Last Vital Signs Temp 97.5 F 03/23/23 17:06 Pulse 83 03/23/23 17:06 Resp 16 03/23/23 17:06 BP 167/83 H 03/23/23 17:06 Pulse Ox 100 03/23/23 17:06 O2 Del Method Room Air 03/23/23 17:06 BMI result Body Mass Index 20.1 Const: General: cooperative, comfortable, no acute distress, alert and awake Nutritional Appearance: average body habitus Resp: Effort & Inspection: normal respiratory effort, able to speak in complete sentences, no respiratory distress and no use of accessory muscles Cardio: Rate: regular rate GI: Inspection: No distended Palpation (GI): Soft to palpation and nontender Neuro: General: moves all extremities and CN's II-XI intact bilaterally Extrem: Other: able to move both legs but lower extremity movement limited somewhat by pain today General: Yes no pedal edema DS: Data Data Completed and Pending Labs on day of discharge: Laboratory Results - last 24 hr 03/22/23 03/23/23 03/23/23 20:26 07:22 11:28 POC Glucose 172 H 152 H 267 H 03/23/23 17:01 POC Glucose 234 H Preliminary micro results at discharge 03/17/23 Unknown Urine Culture - Preliminary Urine clean catch - Urine lopez top Escherichia coli Klebsiella pneumoniae Urine Culture Preliminary 03/21/23-0806 Organism 1 Escherichia coli Quant > 100,000 cfu/mL Organism 2 Klebsiella pneumoniae Quant > 100,000 cfu/mL Organism #2 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 The isolate is being sent to a reference laboratory for confirmation. Possible CRE sent by a secure message and confirmed by Prakash Lucas on 03/21/23 at 0756 by JAGDISH. Results of possible CRE called to and read back by MAYE on 03/21/23 at 0801 by JAGDISH. E coli M.I.C. RX --------- --- Ampicillin 16 I Ceftriaxone <=0.25 S Gentamicin <=1 S Levofloxacin <=0.12 S Nitrofurantoin <=16 S Trimethoprim/Sulfamethoxazole <=[address] scan - head: Radiologist's impression: ITS Impressions Abdomen/Pelvis CT 03/17/23 11:38 IMPRESSION: 1. No acute intra-abdominal process seen. 2. Mild constipation. Scattered colonic diverticulosis without diverticulitis. Fleischner guidelines were followed. Head CT 03/19/23 15:05 IMPRESSION: No acute intracranial pathology. Lumbar Spine CT 03/22/23 17:39 IMPRESSION: Severe compression deformity of T12 with associated mild compression deformity of the L1 superior endplate. There is bony retropulsion of the T12 vertebral body contributing to severe spinal canal stenosis with probable mass effect on the thoracic cord that is not well visualized on this examination. There is severe right greater than left neural foraminal stenosis at T12-L1. Diffuse osteopenia. Coarse calcifications in the left adnexa are likely ovarian in origin. Follow-up pelvic ultrasound can be considered. Thoracic Spine CT 03/22/23 17:39 IMPRESSION: Severe compression deformity of T12 with associated mild compression deformity of the L1 superior endplate. There is bony retropulsion of the T12 vertebral body contributing to severe spinal canal stenosis with probable mass effect on the thoracic cord that is not well visualized on this examination. There is severe right greater than left neural foraminal stenosis at T12-L1. Diffuse osteopenia. Coarse calcifications in the left adnexa are likely ovarian in origin. Follow-up pelvic ultrasound can be considered. Thoracic Spine MRI 03/23/23 16:30 IMPRESSION: 1. There is an acute to subacute severe compression fracture of the body of T12 with retropulsion of the inferior body into the spinal canal. There is marked compression of the lower thoracic spinal cord/conus, and there is severe central stenosis. Accounting for artifact, spinal cord signal appears normal. There is severe bilateral foraminal narrowing. 2. There are spondylitic and facet arthropathic changes at multiple other levels as described above. 3. There are severe spondylitic changes in the lower cervical spine. This could be further evaluated with MRI scan of the cervical spine. Discharge Plan Discharge Anticipated Discharge Date/Time: 03/23/23 19:45 Patient Disposition: [facility] Discharge Diagnosis: lower back pain [id number] fracture with compression of the thoracic spinal cord Referrals: Physician,Unknown J [Primary Care Provider] - 1 Week Discharge Medications: New lidocaine [Lidocaine Pain Relief] 4 % Adhesive Patch,Medicated 1 patch transdermal DAILY Qty: 5 0RF Protocol: Apply to: Apply to: affected area meropenem 1 gram Recon Soln 1 g IV Q8H Qty: 10 0RF Continued atorvastatin 40 mg Tablet 40 mg PO DAILY citalopram 40 mg Tablet 40 mg PO DAILY metoprolol succinate 50 mg Tablet Extended Release 24 Hr 50 mg PO DAILY levothyroxine 50 mcg Tablet 50 mcg PO DAILY candesartan 32 mg Tablet 32 mg PO DAILY gabapentin 300 mg Capsule 300 mg PO BEDTIME memantine 10 mg Tablet 10 mg PO DAILY duloxetine 20 mg Capsule,Delayed Release(Dr/Ec) 20 mg PO DAILY melatonin 10 mg Tablet 10 mg PO BEDTIME PRN (Reason: Insomnia) Held glipizide 10 mg Tablet Extended Release 24hr 10 mg PO DAILY Hold Instructions: hold during hospitalization aspirin 81 mg Tablet,Delayed Release (Dr/Ec) 81 mg PO DAILY Hold Instructions: last dose given 03/23 9am glimepiride 4 mg Tablet 4 mg PO DAILY Hold Instructions: held during hospitalization Discontinued hydrochlorothiazide 12.5 mg Tablet 12.5 mg PO DAILY Discharge Orders: Discharge Order (Routine); Ordered 03/24/23 Ordered By: Gabriel Orozco Activity on Discharge: As tolerated Stand Alone Forms: Patient Portal Discharge page Care Plan Goals: see below Health Concerns: t12 compression fracture with compression of lower thoracic spinal cord uti due to chronic owusu (owusu removed 03/21 and voiding without difficulty) Plan of Treatment: antibiotics changed to meropenem for now - await final culture sensitivities transfer to tertiary care facility for further care and evaluation of compression fracture with spinal cord compression Assessment: see discharge summary Discharge Date/Time: 03/24/23 09:39
[2023-03-23 19:43] VITALS: BP 109/60; PULSE 90; RESP 14; TEMP 37.2; O2SAT 98
[2023-03-23 20:05] LABS: Glucose, Whole Blood 200 mg/dL (60-115)
[2023-03-23] MEDS: Gabapentin 300 MG CAPSULE PO (21:33)
[2023-03-24] MEDS: oxyCODONE HCl Immed Release 5 MG TABLET PO (02:24)
[2023-03-24 02:51] VITALS: BP 134/62; PULSE 76; RESP 16; TEMP 36.3; O2SAT 100
--- NOTE | 2023-03-24 04:19 | PC.NURSE ---
Addendum entered by Ivelisse Cooper RN 03/24/23 07:03: , patients son updated via phone call. Original Note: Patient has a bed in [facility] in [place] , 4th floor, North 4, room 25. Nurse to nurse Ivelisse Michael report given at 0152, phone number [phone]. [facility] was to fruit or nut picker patient at [facility] in one hour from report time and than delayed transfer to 0630 -0700. Receiving hospital ,patient and hospitalist updated on new transfer time. Patient is stable, medicated one time with oxycodone for pain and is sleeping at this time. Will inform patients son of above in AM.
[2023-03-24] MEDS: Levothyroxine Sodium 50 MCG TABLET PO (05:54)
[2023-03-24 06:31] LABS: Anion Gap 11 (12-20); Blood Urea Nitrogen 10 mg/dL (9-16); Calcium 8.5 mg/dL (8.4-10.2); Carbon Dioxide 30 mmol/L (22-29); Chloride 98 mmol/L (96-108); Creatinine Clr Calc Pharmacy 64.6; Estimated Glomerular Filt Rate > 60; Glucose Random 130 mg/dL (60-115); Potassium 3.1 mmol/L (3.3-5.1); Sodium 136 mmol/L (135-145)
[2023-03-24 07:43] LABS: Glucose, Whole Blood 177 mg/dL (60-115)
[2023-03-24 07:46] VITALS: BP 131/60; PULSE 91; RESP 16; TEMP 36.7; O2SAT 100
[2023-03-24] MEDS: Memantine HCl 10 MG TABLET PO (07:56)
[2023-03-24] MEDS: DULoxetine HCl 20 MG CAPSULE.DR PO (07:56)
[2023-03-24] MEDS: Lidocaine 4 % Patch ADH..PATCH 1 PATCH TRANSDERMA (07:56)
[2023-03-24] MEDS: Valsartan 160 MG TABLET PO (07:56)
[2023-03-24] MEDS: Metoprolol Succinate ER 50 MG TAB.ER.24H PO (07:56)
[2023-03-24] MEDS: Atorvastatin Calcium 40 MG TABLET PO (07:56)
[2023-03-24] MEDS: Escitalopram Oxalate 20 MG TABLET PO (07:56)
[2023-03-24] MEDS: Insulin Lispro 100 UNIT/ML 3 ML VIAL SUBCUT (07:57)
[2023-03-24] MEDS: 0.9 % Sodium Chloride Flush 3 ML SYRINGE IVFLUSH (07:59)
== END 2023-03-24 09:39 | disposition short-term general hospital (02) | DRG 699 ==
LOC: HO.ED 12:28 → HO.EDOVER 16:31 → HO.S3 19:23
PROVIDERS: Nurse Practitioner Acute Care; Physician Assistant; Admitting Provider Student in an Organized Health Care Education/Training Program; Emergency Provider Emergency Medicine Emergency Medical Services; Visit Provider Physician Assistant Medical
DX: T83.518A Infection and inflammatory reaction due to other urinary catheter, initial encounter (principal); E87.1 Hypo-osmolality and hyponatremia; N39.0 Urinary tract infection, site not specified; E87.21 Acute metabolic acidosis; Z16.13 Resistance to carbapenem; I25.10 Atherosclerotic heart disease of native coronary artery without angina pectoris; Z66 Do not resuscitate; E86.0 Dehydration; E78.5 Hyperlipidemia, unspecified; F39 Unspecified mood [affective] disorder; T50.2X5A Adverse effect of carbonic-anhydrase inhibitors, benzothiadiazides and other diuretics, initial encounter; F03.A0 Unspecified dementia, mild, without behavioral disturbance, psychotic disturbance, mood disturbance, and anxiety; B96.20 Unspecified Escherichia coli [E. coli] as the cause of diseases classified elsewhere; B96.1 Klebsiella pneumoniae [K. pneumoniae] as the cause of diseases classified elsewhere; R62.7 Adult failure to thrive; Z68.20 Body mass index [BMI] 20.0-20.9, adult; E11.42 Type 2 diabetes mellitus with diabetic polyneuropathy; E11.65 Type 2 diabetes mellitus with hyperglycemia; I10 Essential (primary) hypertension; E87.6 Hypokalemia; E03.9 Hypothyroidism, unspecified; Z20.822 Contact with and (suspected) exposure to COVID-19; Z79.82 Long term (current) use of aspirin; Z79.84 Long term (current) use of oral hypoglycemic drugs; Z79.890 Hormone replacement therapy; Z79.899 Other long term (current) drug therapy
CPT/HCPCS: 0241U; 36415; 70450; 72128; 72131; 72146; 74176; 80048; 80076; 81001; 82010; 82947; 83605; 83735; 85025; 85027; 85610; 87040; 87086; 87088; 87186; 92526; 92610; 93005; 97110; 97162; 97167; 97530; 97535; 99285; J0696; J1650; J2185; J3480; J7120

== ENCOUNTER → 2023-03-17 11:30 | Outpatient (BNV) | payer MEDICARE, SELFPAY | PROVIDERS: Emergency Provider Emergency Medicine Emergency Medical Services; Visit Provider Internal Medicine Cardiovascular Disease | DX: I45.81 Long QT syndrome (principal) | CPT/HCPCS: 93010 ==

== ENCOUNTER → 2023-03-17 16:23 | Outpatient (BNV) | payer MEDICARE, SELFPAY | PROVIDERS: Admitting Provider Student in an Organized Health Care Education/Training Program; Emergency Provider Emergency Medicine Emergency Medical Services; Visit Provider Physician Assistant Medical | DX: N39.0 Urinary tract infection, site not specified (principal); M54.50 Low back pain, unspecified | CPT/HCPCS: 99223; 99232; 99233; 99239 ==

== ENCOUNTER → 2023-03-17 16:23 | Outpatient (BNV) | payer MEDICARE, SELFPAY | PROVIDERS: Admitting Provider Student in an Organized Health Care Education/Training Program; Emergency Provider Emergency Medicine Emergency Medical Services; Visit Provider Urology | DX: N39.0 Urinary tract infection, site not specified (principal); R62.7 Adult failure to thrive; R53.1 Weakness; Z97.8 Presence of other specified devices | CPT/HCPCS: 99222 ==

== ENCOUNTER 2023-04-16 13:29 | Inpatient (IN) | payer MEDICARE, SELFPAY ==
[2023-04-16] VITALS (17 sets, daily range): BP systolic 94–146; BP diastolic 38–88; PULSE 91–118; RESP 18–30; TEMP 33.8–36.6; O2SAT 97–100; BMI 21.1
--- NOTE | ~2023-04-16 | XR_ITS ---
EXAMINATION: XR CHEST AP SUPINE PORTABLE, 8:14 AM CLINICAL INFORMATION: Shortness of breath COMPARISON: 04/16/2023 TECHNIQUE: Frontal view of the chest was obtained. FINDINGS: The lungs are clear. The cardiomediastinal silhouette is stable. Degenerative changes of the right shoulder And surgical anchors in both shoulders are again evident. XR/XR chest 1V IMPRESSION: No acute cardiopulmonary disease.
--- NOTE | ~2023-04-16 | CT_ITS ---
EXAMINATION: CT HEAD WITHOUT CONTRAST CLINICAL INFORMATION: Altered mental status. COMPARISON: CT head 03/19/2023. TECHNIQUE: Contiguous axial imaging was performed from the skull base to vertex without intravenous administration of contrast. This CT examination was performed using dose optimization techniques as appropriate, variously including the following: *Automated exposure control *Adjustment of mA and/or kV according to patient size (this includes techniques or standardized protocols for targeted exams where dose is matched to indication/reason for exam; i.e. extremities or head) *Use of iterative reconstruction technique DLP: 560 mGy-cm FINDINGS: Subtle new focal hypodensity in the right occipital lobe with equivocal loss of the lopez-white matter differentiation. No evidence of acute intracranial hemorrhage or edematous infarction. A few foci of hypoattenuation in the periventricular and deep white matter are consistent with mild microangiopathy. Proportional prominence of the ventricles and sulcal spaces. No evidence for obstructive hydrocephalus. No abnormal mass effect or midline shift. No extra-axial fluid collections. No acute soft tissue or osseous abnormalities. The mastoid air cells and paranasal sinuses are clear. CT/CT head/brain wo IV con IMPRESSION: 1. Subtle new focal hypodensity in the right occipital lobe with equivocal loss of the lopez-white matter differentiation; unsure if this could represent an artifact from volume averaging versus a true acute infarction. Recommend further evaluation with an MR of the brain. 2. No evidence of acute intracranial hemorrhage or edematous infarction.
--- NOTE | ~2023-04-16 | MR_ITS ---
EXAMINATION: MR ANGIOGRAPHY BRAIN WITHOUT CONTRAST CLINICAL INFORMATION: ? Cortical blindness COMPARISON: MRI brain on 04/17/2023 TECHNIQUE: MR angiography of the brain without administration of intravenous contrast. FINDINGS: Anterior circulation: The petrous, cavernous, and supraclinoid segments of the internal carotid arteries demonstrate normal flow-related signal bilaterally. The major branches of the anterior and middle cerebral arteries as well as the anterior communicating artery complex also demonstrate normal flow-related signal. No large vessel occlusion or saccular aneurysm. Posterior circulation: Flow related signal is not identified along the course of the right intracranial vertebral artery. The left intracranial vertebral artery demonstrate normal flow-related signal. The basilar artery is also normal in course, caliber, with normal flow-related signal. The posterior cerebral and superior cerebellar arteries are patent. No aneurysm. No midline shift, hydrocephalus, or herniation. MR/MR angio head wo con IMPRESSION: -Flow related signal is not identified along the course of the right intracranial vertebral artery. This could be secondary to hypoplasia, slow flow or occlusion. -Otherwise, normal MRA of the head.
--- NOTE | ~2023-04-16 | MR_ITS ---
EXAMINATION: MR BRAIN WITHOUT CONTRAST CLINICAL INFORMATION: Evaluate for infarction COMPARISON: CT head 04/16/2023 TECHNIQUE: MRI of the brain was obtained using routine sequences without contrast. FINDINGS: There is restricted diffusion with T2/FLAIR hyperintense signal in the right greater than left occipital lobes, parietal lobes, posterior temporal lobes, and cerebellar hemispheres. Susceptibility weighted sequence is within normal limits. No midline shift or downward herniation. Generalized cerebral volume loss with associated ventricular and sulcal prominence. Intracranial flow voids are preserved. Scattered paranasal sinus polypoid mucosal thickening. Trace mastoid fluid bilaterally. Left intraocular lens replacement. No focal expansile/destructive osseous lesion. MR/MR head/brain wo con IMPRESSION: Restricted diffusion with associated T2/FLAIR hyperintense signal in the right greater than left occipital lobes, parietal lobes, posterior temporal lobes, and cerebellar hemispheres. Finding may be seen in the setting of underlying posterior reversible encephalopathy syndrome (PRES). Associated diffusion restriction may represent underlying ischemia/infarction.
--- NOTE | ~2023-04-16 | XR_ITS ---
EXAMINATION: PORTABLE CHEST 1 VIEW CLINICAL INFORMATION: sob. COMPARISON: No recent pertinent prior studies are available for comparison. TECHNIQUE: Portable frontal view of the chest was obtained. FINDINGS: The lungs are well expanded. No focal infiltrate, effusion, edema, or pneumothorax. Cardiac and mediastinal silhouettes are within normal limits for technique. No acute bony abnormality seen with degenerative changes in the spine and shoulders and right bone anchors noted. XR/XR chest 1V IMPRESSION: No evidence of acute disease.
--- NOTE | ~2023-04-16 | XR_ITS ---
EXAMINATION: XR CHEST CLINICAL INFORMATION: Status post attempted right IJ and right subclavian CVC catheter placement. COMPARISON: Chest radiograph 04/16/2023 at 3:53 PM. TECHNIQUE: AP view of the chest was obtained. FINDINGS: No evidence of central venous catheters. No pneumothorax. No focal airspace densities. Normal appearance of the cardiomediastinal silhouette. Right humeral head anchors noted. No acute osseous findings. XR/XR chest 1V IMPRESSION: 1. No evidence of central venous catheters. 2. No pneumothorax. 3. Clear lungs.
--- NOTE | 2023-04-16 13:41 | ED_ITS ---
HPI - General Adult General Chief complaint: Altered Mental Status Stated complaint: hyperglycemia Time Seen by Provider: 04/16/23 13:40 Source: patient and EMS Mode of arrival: EMS Limitations: other (Poor history) History of Present Illness HPI narrative: This is a 77-year-old female hx hypothyroidism, hypertension, hyperlipidemia, diabetes presenting to the emergency department for evaluation of hyperglycemia sugar in the 500s, according to family and EMS patient is altered and confused when compared to baseline. Patient is on meds at home for diabetes in states she is taking them as prescribed patient poor historian. Appears uncomfortable upon arrival. Unable to obtain an accurate history from patient. Related Data Home Medications Medication Instructions Recorded Confirmed aspirin 81 mg tablet,delayed 81 mg PO DAILY 03/17/23 03/17/23 release atorvastatin 40 mg tablet 40 mg PO DAILY 03/17/23 03/17/23 candesartan 32 mg tablet 32 mg PO DAILY 03/17/23 03/17/23 citalopram 40 mg tablet 40 mg PO DAILY 03/17/23 03/17/23 duloxetine 20 mg capsule,delayed 20 mg PO DAILY 03/17/23 03/17/23 release gabapentin 300 mg capsule 300 mg PO BEDTIME 03/17/23 03/17/23 glimepiride 4 mg tablet 4 mg PO DAILY 03/17/23 03/17/23 glipizide 10 mg tablet, extended 10 mg PO DAILY 03/17/23 03/17/23 release 24 hr levothyroxine 50 mcg tablet 50 mcg PO DAILY 03/17/23 03/17/23 melatonin 10 mg tablet 10 mg PO BEDTIME PRN Insomnia 03/17/23 03/17/23 memantine 10 mg tablet 10 mg PO DAILY 03/17/23 03/17/23 metoprolol succinate 50 mg 50 mg PO DAILY 03/17/23 03/17/23 tablet,extended release 24 hr Previous Rx's Medication Instructions Recorded lidocaine 4 % topical patch 1 patch transdermal DAILY #5 ea 03/23/23 (Lidocaine Pain Relief) meropenem 1 gram intravenous 1 g IV Q8H #10 ea 03/23/23 solution Allergies Allergy/AdvReac Type Severity Reaction Status Date / Time No Known Allergies Allergy Verified 04/16/23 14:12 Review of Systems 2 Review of Systems: Yes Unobtainable due to mental status PMFSH Past Medical History Attestation statement: The following information was validated with the patient. Source: old records reviewed and nursing notes reviewed Medical History Non-insulin dependent type 2 diabetes mellitus Hypothyroidism CAD (coronary artery disease) HLD (hyperlipidemia) HTN (hypertension) Surgical History History of lumbar surgery Social History Social History Household Members: Children Housing: House Do you presently have visiting nurse or other home services: No Patient Tobacco Use Status: Never used Tobacco Smoked in Last 30 Days: No Use of substances other than those prescribed or required for medical reasons: No Advance Directives: No Advance Directives Information Provided: Yes service: No Physical Exam ED Vital Signs: Vital Signs - 24 hr 04/16/23 14:14 04/16/23 15:04 04/16/23 15:18 Temperature 97.8 F Pulse Rate 118 H 109 H 101 H Respiratory Rate 30 H 20 25 H Blood Pressure 118/63 94/41 L Pulse Oximetry Oxygen Delivery Method Room Air Nasal Cannula Oxygen Flow Rate 5 04/16/23 15:57 04/16/23 16:08 04/16/23 16:29 Temperature 93.9 F L 93.6 F L Pulse Rate 91 92 Respiratory Rate 28 H 23 H 24 H Blood Pressure 100/43 L 125/40 L Pulse Oximetry 100 97 Oxygen Delivery Method Nasal Cannula Room Air Oxygen Flow Rate 5 BMI result Body Mass Index 20.0 Vital signs stable Appearance: Alert.? Oriented to person not place, time or situation? + acute distress.? Head: Normocephalic, atraumatic, no step-offs or deformities Eyes: Pupils equal, round and reactive to light.? ENT: Pharynx normal.? Neck: Normal inspection.? Neck supple.? CVS: Normal heart rate and rhythm.? Pulses normal.? Respiratory: + mild respiratory distress.? Breath sounds normal.? Patient noted to have Kussmaul respirations Abdomen: Soft and nontender.? Skin: Skin warm and dry.? Normal skin color.? Normal skin turgor.? Extremities: No lower extremity edema.? Global weakness. Back: No midline tenderness, no C-spine tenderness, full range of motion, no CVA tenderness bilaterally Neuro: Oriented to person not place, time or situation.? No motor deficit.? No sensory deficit. CN 2-12 intact Course Reevaluation(s) Reevaluation #1: Rapid decline in mentation, I had to place a 20 gauge IV in the left AC via ultrasound guidance, no complications, labs obtained from there. This is why there was a delay in obtaining labs. Will cover with empiric antibiotics and give fluids. Still unable to obtain oxygen saturation. Patient cold oral temp 97.[address] temp sensing owusu Time: 15:12 Reevaluation #2: CBC with leukocytosis, no left shift. Chem pending. Low PH however will wait to see chemistry prior to giving bicarb Time: 15:14 Reevaluation #3: Just received a call from Hematology 11 bands, at this time sepsis alert called, infection suspected. Sepsis focus exam conducted at this time. Chemistry still pending. Dr. Inman ICU states no need for bicarb at this time prior to recieving labs Time: 15:26 Additional Reevaluation(s): 1525- Core temperature 93 degrees F patient to be placed on Christy Hugger. 1555- patietns iv in l ac infiltrated new IV placed by this PA in R ac no complications. 1626- sodium 133, potassium 6.5 she did receive a nebulizing treatment, carbon dioxide low less than 5, patient to receive bicarb at this time, acute kidney injury also noted, fluids running, point of care still critically elevated, on a glucose drip at this time. Troponin elevated likely secondary to demand ischemia. Beta hydroxybutyrate 11.70 consistent with diabetic ketoacidosis. UA pending. Sign out to Dr. Guevara. Nursing user support analyst supervisor aware of need for ICU bed. Likely will have an ICU bed at 19:[address] Inman recommends 20 units / hr and repeat POC Q hour also recommends LR. He will place orders for these changes. Dr. Guevara aware of this. Medications Administered Generic Name Dose Route Start Last Admin Trade Name Freq PRN Reason Stop Dose Admin Insulin Human Regular 100 unit in 100 mls @ 10 mls/hr 04/16/23 15:45 04/16/23 16:07 Myxredlin IVCONT 10 unit/hr .Q10H LG 10 mls/hr Administration Protocol 10 UNIT/HR Discontinued Medications Generic Name Dose Route Start Last Admin Trade Name Martin PRN Reason Stop Dose Admin Albuterol Sulfate 7.5 mg/ 10 mg 04/16/23 14:57 04/16/23 15:04 Albuterol Sulfate 2.5 mg INHALE 04/16/23 14:58 10 mg ONCE ONE Administration Fentanyl 25 mcg 04/16/23 15:24 04/16/23 15:57 Fentanyl Citrate/Pf 100 Mcg/2 Ml Vial IVPUSH 04/16/23 15:25 25 mcg ONCE ONE Administration Protocol Sodium Chloride 1,000 mls @ 999 mls/hr 04/16/23 13:45 04/16/23 16:32 Ns IV 04/16/23 14:45 Infused .Q1H1M LG Infusion Sodium Chloride 1,350 mls @ 1,350 mls/hr 04/16/23 15:02 04/16/23 15:59 Ns 30 ml/kg infuse over 1 hr (1350 ml) 04/16/23 16:01 1,350 mls/hr IV Administration .Q1H STA Ceftriaxone Sodium 1 gm/ 50 mls @ 100 mls/hr 04/16/23 15:03 04/16/23 16:33 Sodium Chloride IV 04/16/23 15:32 Infused ONCE ONE Infusion Insulin Human Regular 10 unit 04/16/23 14:59 04/16/23 15:04 Insulin Regular, Human 100 Unit/Ml 3 Ml Vial IVPUSH 04/16/23 15:00 10 unit ONCE ONE Administration Medical Decision Making Medical Decision Making MDM Narrative: 77-year-old female presents with uncontrolled sugars at home the 500s. Physical exam clues small respirations noted. History and physical exam concerning for hyperglycemic crisis/DKA. Will rule out metabolic derangements. Will obtain chest x-ray as well to rule out pneumonia although unlikely unlikely pulmonary embolism. Plan at this time labs, imaging, viral to have Patient very difficult stick. Nursing will try in that if needed ultrasound- guided line will be placed Very difficult to obtain an oxygen saturation on this patient. Will continue to try. Differential Diagnosis Differential Diagnoses: The differential diagnosis associated with the presentation includes History and physical exam concerning for hyperglycemic crisis/DKA. Will rule out metabolic derangements. Will obtain chest x-ray as well to rule out pneumonia although unlikely unlikely pulmonary embolism. Admission/Observation Consideration of admission/observation: Escalation of care including admission/observation considered likely Consult Healthcare Provider Management of the patient was discussed with: Coil Tester (ICU) Lab Data MDM Lab Attestation statement: I reviewed the patient's lab results. 04/16/23 14:50 04/16/23 14:50 Labs: Lab Results 04/16/23 04/16/23 04/16/23 Range/Units 14:50 14:54 14:58 WBC 11.5 H (4.8-10.8) X10*3/uL RBC 5.16 D (4.20-5.50) X10*6/uL Hgb 15.5 D (12.0-16.0) g/dl Hct 48.3 H D (37.0-47.0) % MCV 93.6 (80.0-98.0) fL MCH 30.0 (27.0-33.0) pg MCHC 32.1 (31.0-35.0) g/dl RDW 14.4 (11.0-16.0) % Plt Count 240 (160-400) X10*3/uL MPV 10.7 (9.4-12.3) fL Immature Gran % (Auto) Cancelled Neut % (Auto) Cancelled Lymph % (Auto) Cancelled Roberts % (Auto) Cancelled Eos % (Auto) Cancelled Baso % (Auto) Cancelled Lymph # (Auto) Cancelled Roberts # (Auto) Cancelled Eos # (Auto) Cancelled Baso # (Auto) Cancelled Abs Immat Gran (auto) Cancelled Absolute Neuts (auto) Cancelled Absolute Nucleated RBC 0.000 (0.0-0.012) X10*3/uL Nucleated RBC % (auto) 0.0 (0.0-0.2) /100WBC Neutrophils % (Manual) 76 H (45-73) % Band Neutrophils % 11 H (3-5) % Lymphocytes % (Manual) 8 L (20-40) % Monocytes % (Manual) 2 (2-11) % Metamyelocytes % 1 % Myelocytes % 1 % Promyelocytes % 1 % Abs Neuts (Manual) 10.0 H (2.0-8.3) X10*3/uL Lymphocytes # (Manual) 0.9 L (1.2-4.9) X10*3/uL Monocytes # (Manual) 0.2 (0.1-1.2) X10*3/uL Metamyelocytes # 0.1 X10*3/uL Myelocytes # 0.1 X10*/uL Promyelocytes # 0.1 X10*3/uL Platelet Estimate TNP Plt Morphology Comment NORMAL RBC Morphology NOTED Acanthocytes (Spur) 3+ (>5) /OIF Hold Purple Top PT 9.7 L (11.1-13.3) SEC INR 0.8 L (0.9-1.1) VBG pH 7.01 L* (7.32-7.43) VBG pCO2 11 mmHg VBG pO2 128 mmHg VBG HCO3 3 L (22-26) mmol/L VBG O2 Saturation 99.0 % VBG Base Excess -25.7 mmol/L Sodium 133 L (135-145) mmol/L Potassium 6.5 H* D (3.3-5.1) mmol/L Chloride 95 L (96-108) mmol/L Carbon Dioxide < 5 L* D (22-29) mmol/L Anion Gap TNP BUN 28 H (9-16) mg/dL Creatinine 1.47 H (0.5-1.4) mg/dL Estim Creat Clear Calc 22.5 Estimated GFR 35 POC Glucose 541 H* (60-115) mg/dL Random Glucose 672 H* (60-115) mg/dL Calcium 9.4 D (8.4-10.2) mg/dL Magnesium 2.6 (1.6-2.6) mg/dL Total Bilirubin 0.8 (0.0-1.0) mg/dL AST 81 H (5-31) U/L ALT 151 H (0-31) U/L Alkaline Phosphatase 158 H (39-117) U/L Troponin I High Sens 36.5 H (<3.5-17.0) ng/L B-Natriuretic Peptide 195 H (<100) pg/mL Total Protein 6.5 (6.5-8.0) g/dL Albumin 3.4 L (3.5-5.0) g/dL Beta-Hydroxybutyrate 11.70 H (0.02-0.27) mmol/L TSH 1.60 (0.32-4.0) uIU/mL Influenza Type A (PCR) NEGATIVE (Negative) Influenza Type B (PCR) NEGATIVE (Negative) RSV RNA Qual (PCR) NEGATIVE (Negative) SARS-CoV-2 RNA (RT-PCR) NEGATIVE (Negative) 04/16/23 04/16/23 Range/Units 15:53 16:00 WBC (4.8-10.8) X10*3/uL RBC (4.20-5.50) X10*6/uL Hgb (12.0-16.0) g/dl Hct (37.0-47.0) % MCV (80.0-98.0) fL MCH (27.0-33.0) pg MCHC (31.0-35.0) g/dl RDW (11.0-16.0) % Plt Count (160-400) X10*3/uL MPV (9.4-12.3) fL Immature Gran % (Auto) Neut % (Auto) Lymph % (Auto) Roberts % (Auto) Eos % (Auto) Baso % (Auto) Lymph # (Auto) Roberts # (Auto) Eos # (Auto) Baso # (Auto) Abs Immat Gran (auto) Absolute Neuts (auto) Absolute Nucleated RBC (0.0-0.012) X10*3/uL Nucleated RBC % (auto) (0.0-0.2) /100WBC Neutrophils % (Manual) (45-73) % Band Neutrophils % (3-5) % Lymphocytes % (Manual) (20-40) % Monocytes % (Manual) (2-11) % Metamyelocytes % % Myelocytes % % Promyelocytes % % Abs Neuts (Manual) (2.0-8.3) X10*3/uL Lymphocytes # (Manual) (1.2-4.9) X10*3/uL Monocytes # (Manual) (0.1-1.2) X10*3/uL Metamyelocytes # X10*3/uL Myelocytes # X10*/uL Promyelocytes # X10*3/uL Platelet Estimate Plt Morphology Comment RBC Morphology Acanthocytes (Spur) /OIF Hold Purple Top SEE NOTE PT (11.1-13.3) SEC INR (0.9-1.1) VBG pH (7.32-7.43) VBG pCO2 mmHg VBG pO2 mmHg VBG HCO3 (22-26) mmol/L VBG O2 Saturation % VBG Base Excess mmol/L Sodium (135-145) mmol/L Potassium (3.3-5.1) mmol/L Chloride (96-108) mmol/L Carbon Dioxide (22-29) mmol/L Anion Gap BUN (9-16) mg/dL Creatinine (0.5-1.4) mg/dL Estim Creat Clear Calc Estimated GFR POC Glucose 548 H* (60-115) mg/dL Random Glucose (60-115) mg/dL Calcium (8.4-10.2) mg/dL Magnesium (1.6-2.6) mg/dL Total Bilirubin (0.0-1.0) mg/dL AST (5-31) U/L ALT (0-31) U/L Alkaline Phosphatase (39-117) U/L Troponin I High Sens (<3.5-17.0) ng/L B-Natriuretic Peptide (<100) pg/mL Total Protein (6.5-8.0) g/dL Albumin (3.5-5.0) g/dL Beta-Hydroxybutyrate (0.02-0.27) mmol/L TSH (0.32-4.0) uIU/mL Influenza Type A (PCR) (Negative) Influenza Type B (PCR) (Negative) RSV RNA Qual (PCR) (Negative) SARS-CoV-2 RNA (RT-PCR) (Negative) Independent Interpretation I performed an independent interpretation of an: EKG (Ventricular rate 124, T- wave amplitude increase concern for hyperkalemia. No ST elevations or inversions concerning for ischemia) and Plain X-Ray Radiology Impression Discussion of test interpretation with radiology: I have reviewed the radiologist's reading. Critical Care Time Critical Care Time Critical Care Time: Yes Total Critical Care Time: 60 Attestation: I attest to this time spent taking care of the patient, obtaining history, physical, reviewing labs, imaging, speaking to my attending, speaking to specialist. Discharge Plan Discharge Clinical Impression: Diabetic ketoacidosis, DAPHNIE (acute kidney injury), Hypoxia, Physical deconditioning, Hypothermia Patient Disposition: Admitted As Inpatient
--- NOTE | 2023-04-16 13:45 | ECG_ITS ---
Test Reason : AFIB Blood Pressure : / mmHG Vent. Rate : 124 BPM Atrial Rate : 124 BPM P-R Int : 172 ms QRS Dur : 078 ms QT Int : 300 ms P-R-T Axes : 059 -20 074 degrees QTc Int : 431 ms Sinus tachycardia Nonspecific ST abnormality Abnormal ECG When compared with ECG of 17-MAR-2023 11:47, Vent. rate has increased BY 43 BPM T wave amplitude has increased in Inferior leads Nonspecific T wave abnormality no longer evident in Lateral leads Referred By: Fernando Swan Electronically Signed By:JANET JUAREZ
[2023-04-16] MEDS: 0.9 % Sodium Chloride 1,000 ML 999 ML IV (14:50)
[2023-04-16 14:56] LABS: Hematocrit 48.3 % (37.0-47.0); Hemoglobin 15.5 g/dl (12.0-16.0); Mean Corpuscular HGB Conc 32.1 g/dl (31.0-35.0); Mean Corpuscular Volume 93.6 fL (80.0-98.0); Mean Platelet Volume 10.7 fL (9.4-12.3); Red Blood Count 5.16 X10*6/uL (4.20-5.50); Red Cell Distribution Width 14.4 % (11.0-16.0); White Blood Count 11.5 X10*3/uL (4.8-10.8)
[2023-04-16 15:01] LABS: Glucose, Whole Blood 541 mg/dL (60-115)
[2023-04-16 15:03] LABS: Venous Blood Gas Refer to POC result
[2023-04-16 15:03] LABS: VBG Base Excess -25.7 mmol/L; VBG HCO3 3 mmol/L (22-26); VBG pCO2 11 mmHg; VBG pH 7.01 (7.32-7.43); VBG pO2 128 mmHg
[2023-04-16 15:04] LABS: INTERNATIONAL NORM RATIO 0.8 (0.9-1.1); Prothrombin Time 9.7 SEC (11.1-13.3)
[2023-04-16] MEDS: Insulin Regular, Human 100 UNIT/ML 3 ML VIAL 10 UNIT IVPUSH (15:04)
[2023-04-16] MEDS: Albuterol Sulfate 7.5 MG, Albuterol Sulfate (0.083%) 2.5 MG 10 MG INHALE (15:04)
[2023-04-16 15:21] LABS: B Type Natriuretic Peptide 195 pg/mL (<100)
[2023-04-16] MEDS: cefTRIAXone sodium 1 GM in 0.9 % Sodium Chloride 50 ML IV (15:23)
[2023-04-16 15:24] LABS: Neutrophils Percent Manual 76 % (45-73)
[2023-04-16 15:26] LABS: Band Neutrophils Percent 11 % (3-5); Lymphocytes Absolute Manual 0.9 X10*3/uL (1.2-4.9); Lymphocytes Percent Manual 8 % (20-40); Metamyelocytes Absolute 0.1 X10*3/uL; Metamyelocytes Percent 1 %; Monocytes Absolute Manual 0.2 X10*3/uL (0.1-1.2); Monocytes Percent Manual 2 % (2-11); Myelocytes Absolute 0.1 X10*/uL; Myelocytes Percent 1 %; Promyelocytes Absolute 0.1 X10*3/uL; Promyelocytes Percent 1 %
[2023-04-16 15:27] LABS: RBC Morphology NOTED
[2023-04-16 15:28] LABS: Acanthocytes 3+ (>5) /OIF; Platelet Morphology Comment NORMAL
[2023-04-16 15:30] LABS: Platelet Count 240 X10*3/uL (160-400)
[2023-04-16 15:31] LABS: Troponin-I High Sensitivity 36.5 ng/L (<3.5-17.0)
[2023-04-16 15:54] LABS: Influenza A PCR NEGATIVE (Negative); Influenza B PCR NEGATIVE (Negative); Resp Syncy Virus RNA Qual PCR NEGATIVE (Negative); SARS COV2 PCR INHOUSE NEGATIVE (Negative)
[2023-04-16] MEDS: fentaNYL citrate/PF 100 MCG/2 ML VIAL 25 MCG IVPUSH (15:57)
[2023-04-16 15:58] LABS: Glucose, Whole Blood 548 mg/dL (60-115)
[2023-04-16] MEDS: SODIUM CHLORIDE 1350 ML IV (15:59)
[2023-04-16] MEDS: Insulin Regular/NS 100 UNIT/100 ML PLAST..BAG 10 UNIT IVCONT ×2 (16:07→21:14)
[2023-04-16 16:28] LABS: Alanine Aminotransferase 151 U/L (0-31); Albumin Level 3.4 g/dL (3.5-5.0); Alkaline Phosphatase 158 U/L (39-117); Aspartate Amino Transferase 81 U/L (5-31); Bilirubin Total 0.8 mg/dL (0.0-1.0); Blood Urea Nitrogen 28 mg/dL (9-16); Calcium 9.4 mg/dL (8.4-10.2); Carbon Dioxide < 5 mmol/L (22-29); Chloride 95 mmol/L (96-108); Creatinine Clr Calc Pharmacy 22.5; Estimated Glomerular Filt Rate 35; Glucose Random 672 mg/dL (60-115); Magnesium 2.6 mg/dL (1.6-2.6); Potassium 6.5 mmol/L (3.3-5.1); Sodium 133 mmol/L (135-145); Total Protein 6.5 g/dL (6.5-8.0)
[2023-04-16 16:35] LABS: Appearance Urine Clear; Color Urine Yellow; Glucose Urine UA >=1000 mg/dL (Negative); Leukocyte Esterase Urine Negative (Negative); Nitrite Urine Negative (Negative); PH 5.5 (5.0-9.0); Specific Gravity - Urine >= 1.030 (1.005-1.025); UMIC TRIGGER UACC YES; Urine Blood Moderate (2+) (Negative); Urine Ketones >=160 mg/dL (Negative); Urine Protein 30 (1+) mg/dL (Neg-Trace)
[2023-04-16 16:41] LABS: Ammonia 75 umol/L (13-55)
[2023-04-16 16:44] LABS: Bacteria Urine None Seen (None Seen); Squamous Epithelial Cell Urine 0-2 /HPF (0-2); WBC Urine 0-5 /HPF (0-5)
[2023-04-16] MEDS: Sodium Bicarbonate 8.4% 50 MEQ/50 ML VIAL 100 MEQ IVPUSH (16:57)
[2023-04-16] MEDS: Calcium Gluconate/NaCl,Iso-Osm 2 GM/100 ML PLAST..BAG IV (17:05)
[2023-04-16 17:18] LABS: Glucose, Whole Blood 468 mg/dL (60-115)
[2023-04-16] MEDS: Lactated Ringers 500 ML IVCONT ×3 (17:49→19:54)
[2023-04-16 18:09] LABS: ABG Base Excess -21.4 mmol/L; ABG HCO3 3 mmol/L (22-26); ABG pCO2 8 mmHg (32-45); ABG pO2 200 mmHg (83-108)
[2023-04-16 18:15] LABS: Glucose, Whole Blood 414 mg/dL (60-115)
--- NOTE | 2023-04-16 18:58 | PHA.MEDREC ---
Pharmacy Consult ? Medication Reconciliation Pharmacy has completed the medication reconciliation. Spoke to patient's son who speaks [place]. 's brought in Rx bottles of meds that are confirmed. Patient no longer taking gabapentin and taking Tylenol 650mg BID for pain.
[2023-04-16 19:20] LABS: Glucose, Whole Blood 397 mg/dL (60-115)
[2023-04-16 20:18] LABS: ABG Refer to POC result
[2023-04-16 20:19] LABS: Glucose, Whole Blood 335 mg/dL (60-115)
--- NOTE | 2023-04-16 20:24 | W.PM.CCCN ---
History of Present Illness Data of Consult Service Date: 04/16/23 Requesting physician: Fernando Swan Primary Care Provider: Unknown Physician HPI Called to see Mrs. Brayan Blanchard in the ED bec of severe metabolic acidosis and hyperglycemia. The patient is a 77-yo F w PMHx of hypothyroidism, hypertension, hyperlipidemia, and diabetes.? She is Citizen Of [place]-speaking only.? I obtained history from the son who speaks quite adequate [place].? The patient lives in [place]. The son told me that in November she fell and suffered compression fracture(s) of her spine. ?She was hospitalized for about a month, not clear to me whether she had some kind of surgery there or not. ?She has not been able to walk since then.? On Mar 16, he brought her here to live with him and his about a month ago. On Mar 17, the patient was brought to the ED here hospitalized here bec her urine was very foul smelling and her Sol catheter had some small blood clots in it.? The patient was also slightly confused.? The patient was admitted for treatment of acute UTI, hyponatremia, hypokalemia, and generalized weakness. ?(See dischg summary.)? Her Sol catheter was removed 03/21/23 and the patient was voiding on her own.? She was dischg?d to home on Mar 23. EMS was called to the house today bec of hyperglycemia in the 500s and altered MS.? The son told me that her glucose levels at home have been fluctuating high to low over last 3-5 days.? Mental status was clear though, up until today when she became confused. BIBA to the ED about 2pm.? She was confused and unable to give hx. ?VS on arrival HR 118, BP 118/63, RR 30, Sat 100% on 5LNC, temp 93.9.? Labs notable for WBC 11.5 (baseline 9.2), Hb 15.5 (baseline 11.3), normal PT, BUN/creat 28/1.4 (10/0.5), Na 133 (136), K 6.5, bicarb < 5, gluc 672, transaminases mildly elevated, BNP 195, albumin 3.4 (3.4), beta-hydroxybuterate 11.7.? U/A is clean.? VBG on 5L NC 7.01/11/-25.? ABG at 1800 on 5L NC showed 7.20/8/200/-21, bicarb 3.? CXR is clear. My bedside ECHO:? Image quality fair.? Findings:? Normal LV and RV size and fxn.? Unable to Doppler any valves.? IVC about 0.7 cm with full inspiratory collapse. IMPRESSION: 1. Acute DKA.? Rx fluids and insulin 20 u/hr. 2. Severe hypovolemia.? She?s had 1.8L NS.? Change to LR at 500cc/hr. 3. DAPHNIE.? 2? above. 4. Hyperkalemia.? 2? above.? Potassium will come down rapidly with the insulin. 5. ? Sepsis.? Only real evidence is mild leukocytosis, which could be an acute phase reactant, along with altered MS, which in this case is nonspecific.? She doesn?t have a UTI, and her A-a gradient is near normal and CXR is clear, so she doesn?t have pneumonia.? I don?t think she?s infected.? BCs were drawn, she?s had one dose of ceftriaxone in ED, I wouldn?t give her any more unless something shows up.? No need for lactate levels. 6. Vertebral compression fx?s.? (By history.)? Can be reassessed while she?s here. She needs a CVL for access. Critical care time (including chart rev, mult visits to the bedside in the ED, and extended d/w patient?s son; excluding procedures):? 60 min. COUNT INCLUDES THE [facility] Past Medical History Medical History Non-insulin dependent type 2 diabetes mellitus Hypothyroidism CAD (coronary artery disease) HLD (hyperlipidemia) HTN (hypertension) Surgical History Surgical History History of lumbar surgery Social History Social History Household Members: Children Housing: House Do you presently have visiting nurse or other home services: No Patient Tobacco Use Status: Never used Tobacco service: No Meds Allergies Allergy/AdvReac Type Severity Reaction Status Date / Time No Known Allergies Allergy Verified 04/16/23 14:12 Active Medications: Current Medications Heparin Sodium (Porcine) (Heparin Sodium,Porcine 5,000 Unit/Ml Vial) 5,000 unit SUBCUT Q12H LG Insulin Human Regular (Myxredlin) 100 unit in 100 mls @ 20 mls/hr IVCONT .Q5H LG; Protocol Last Titration: 04/16/23 19:49 Dose: 10 unit/hr, 10 mls/hr Lactated Ringer's (Lr) 500 mls @ 500 mls/hr IVCONT .Q1H LG Last Admin: 04/16/23 19:54 Dose: 500 mls/hr Home Medications Medication Instructions Recorded Confirmed Last Taken Type atorvastatin 40 mg tablet 40 mg PO DAILY 03/17/23 04/16/23 04/16/23 09:00 History duloxetine 20 mg capsule,delayed 20 mg PO DAILY 03/17/23 04/16/23 04/16/23 09:00 History release glipizide 10 mg tablet, extended 10 mg PO DAILY 03/17/23 04/16/23 04/16/23 09:00 History release 24 hr levothyroxine 50 mcg tablet 50 mcg PO DAILY@0600 03/17/23 04/16/23 04/16/23 09:00 History memantine 10 mg tablet 10 mg PO DAILY 03/17/23 04/16/23 04/16/23 09:00 History metoprolol succinate 50 mg 50 mg PO DAILY 03/17/23 04/16/23 04/16/23 09:00 History tablet,extended release 24 hr acetaminophen 650 mg 650 mg PO BID 04/16/23 04/16/23 04/16/23 09:00 History tablet,extended release amlodipine 5 mg tablet 5 mg PO DAILY 04/16/23 04/16/23 04/16/23 09:00 History dexamethasone 4 mg tablet 4 mg PO BID 04/16/23 04/16/23 04/16/23 09:00 History Physical Exam Vital Signs: Vital Signs: Last Vital Signs Temp 94.1 F L 04/16/23 20:01 Pulse 114 H 04/16/23 20:01 Resp 22 H 04/16/23 20:01 BP 118/46 L 04/16/23 20:01 Pulse Ox 97 04/16/23 20:01 O2 Del Method Nasal Cannula 04/16/23 20:01 O2 Flow Rate 5 04/16/23 20:01 BMI result Body Mass Index 20.0 Results Labs 04/16/23 14:50 04/16/23 14:50 Labs: Short CBC 04/16/23 Range/Units 14:50 WBC 11.5 H (4.8-10.8) X10*3/uL Hgb 15.5 D (12.0-16.0) g/dl Hct 48.3 H D (37.0-47.0) % Plt Count 240 (160-400) X10*3/uL BMP 04/16/23 14:50 Sodium 133 L Potassium 6.5 H* D Chloride 95 L Carbon Dioxide < 5 L* D BUN 28 H Creatinine 1.47 H Calcium 9.4 D Liver Function 04/16/23 Range/Units 14:50 Total Bilirubin 0.8 (0.0-1.0) mg/dL AST 81 H (5-31) U/L ALT 151 H (0-31) U/L Alkaline Phosphatase 158 H (39-117) U/L Albumin 3.4 L (3.5-5.0) g/dL Urine 04/16/23 Range/Units 16:22 Urine Color Yellow Urine Appearance Clear Urine pH 5.5 (5.0-9.0) Ur Specific [place] >= 1.030 H (1.005-1.025) Urine Protein 30 (1+) H (Neg-Trace) mg/dL Urine Glucose (UA) >=1000 H (Negative) mg/dL
--- NOTE | 2023-04-16 20:25 | W.PM.CCHP ---
Procedures Date of Service Date of Service: 04/16/23 Central Line Placement Right IJ: Central Line Comments: PROCEDURE NOTE: Attempted right IJV and right subclavian CVL placement Indication: DKA with severe hypovolemia and poor IV access Anesthesia: Local 1% lidoc. Procedure: All four upper CVL sites were examined by US. The patient seems to have a neck contracture that keeps her neck tilted and rotated to the left, so that side was abandoned. On US of the right neck, there was a > 2cm IJV just lateral to the carotid. But bec of the patient's Kussmaul breathing w very deep insp efforts, the vein was noted to swing wildly side to side. No good SCL vein was able to be seen either in the infra- or supraclavic fossa. The right neck and upper chest were prepped and draped. Local at the needle insertion site. The vein was easily cannulated but aspiration was lost. On the third attempt the wire was able to be inserted to the 30cm jamal, but no further, such that it was likely that the wire was going accross to the left. The 18g angiocath was able to be seated in the vein, but mult attempts at twisting the wire to make it go down failed. The wire was pulled. Next, two attempts at blind right infraclavic SCL vein cannulation were made. Neither aspirated blood or air. That was abandoned. Consent for Procedure: Elective - informed consent obtained Time out performed: No
--- NOTE | 2023-04-16 20:36 | W.PM.CCHP ---
Procedures Date of Service Date of Service: 04/16/23 Central Line Placement Right Femoral: Central Line Comments: PROCEDURE NOTE: Right femoral CVL placement Indication: DKA with severe hypovolemia and poor IV access Anesthesia: Local 1% lidoc. Procedure: Attempts at placement of IJV and SCL vein CVL failed (see notes). Therefore attention was turned to the femoral veins. Both sides were examined by US. The patient had a larger vein on the right. The groin was prepped and draped. Local infiltrated at the insertion site. The right femoral vein was cannulated on the third pass under US guidance. The wire threaded easily. A 7Fr x 20cm triple lumen CVL was inserted via Seldinger tech without incident. + asp x 3. Sutured x 3 3-0 silk. Benzoin, biopatch, and sterile dressing applied. CXR pending. Salima well without other complications.
--- NOTE | 2023-04-16 20:55 | PC.NURSE ---
late note: pt BIBA from home, family reports AMS w an increased respiratory rate starting this morning. pt found to be tachycardic, hypotensive, hypothermic. difficult stick, provider at bedside attempting IV access and blood draws. O2 started at 5L via NC per provider verbal order. u/s PIV place L AC, labs drawn, cultures obtained. medicated per MAR w NS, 10U IV insulin, abx and fentanyl per MAR. IV infiltrated, 2nd access obtained via u/s by provider R AC, repeat labs collected. sepsis protocol flds started w IV insulin drip - initially started at 10U/hr and titrated down to 8U/hr after initial hour per protocol. increased per MAR to 20U/hr per verbal order from MD Storm. temp sensing owusu placed, pt tolerated well. provider at bedside for cardiac u/s. provider obtained consent from family for central line placement - central line access obtained through right femoral vein. insulin titrated per verbal order from MD Storm to 10U/hr per MAR. RN-RN report called to ICU. pt brought to CT scan prior to transport to ICU. pt transported by CT and this RN to ICU.
[2023-04-16 21:12] LABS: Glucose, Whole Blood 347 mg/dL (60-115)
[2023-04-16] MEDS: Heparin Sodium,Porcine 5,000 UNIT/ML VIAL 5000 UNIT SUBCUT (21:20)
[2023-04-16] MEDS: Lactated Ringers 500 ML 200 ML IVCONT (21:22)
[2023-04-16 22:02] LABS: Glucose, Whole Blood 314 mg/dL (60-115)
--- NOTE | 2023-04-16 22:03 | PM.CCHP ---
History of Present Illness Date of Service: 04/16/23 Attending physician on admission: Son Inman Chief Complaint: DKA Ms Brayan Polk is a 77-yo Luxembourger-speaking only female? with PMHx of hypothyroidism, hypertension, hyperlipidemia, and diabetes. History obtained from the patient?s son.? Her son reported that in November she fell and suffered compression fracture(s) of her spine.? She was hospitalized for about a month, unclear whether she had some kind of surgery there or not.? She has not been able to walk since then.? On Mar 16, she went to live with her son and [id number]. On Mar 17, she was admitted here at [facility] for treatment of acute UTI, hyponatremia, hypokalemia, and generalized weakness.? (See dischg summary.)? Her Sol catheter was removed 03/21/23 and the patient was voiding on her own.? She was dischg?d to home on Mar 23. EMS was called to the house today because of hyperglycemia in the 500s and altered MS.? The son reported? that her glucose levels at home have been fluctuating high to low over last 3-5 days.? Mental status was clear though, up until today when she became confused. She was BIBA to the ED about 2pm.? She was confused and unable to give hx.? VS on arrival HR 118, BP 118/63, RR 30, Sat 100% on 5LNC, temp 93.9.? Labs notable for WBC 11.5 (baseline 9.2), Hb 15.5 (baseline 11.3), normal PT, BUN/creat 28/1.4 (10/0.5), Na 133 (136), K 6.5, bicarb < 5, gluc 672, transaminases mildly elevated, BNP 195, albumin 3.4 (3.4), beta-hydroxybuterate 11.7.? U/A is clean.? VBG on 5L NC 7.01/11/-25.? ABG at 1800 on 5L NC showed 7.20/8/200/-21, bicarb 3.? CXR is clear. Bedside ECHO by Dr Inman:? Image quality fair.? Findings:? Normal LV and RV size and fxn.? Unable to Doppler any valves.? IVC about 0.7 cm with full inspiratory collapse. Review of Systems Review of Systems: Yes Unobtainable due to mental status Neurologic: Reports confusion Psychiatric: Psychiatric: Reports confusion [facility] Past Medical History Medical History Non-insulin dependent type 2 diabetes mellitus Hypothyroidism CAD (coronary artery disease) HLD (hyperlipidemia) HTN (hypertension) Surgical History Surgical History History of lumbar surgery Social History Social History Household Members: Family Housing: House Do you presently have visiting nurse or other home services: No Unable to assess alcohol history related to: Unknown Patient Tobacco Use Status: Never used Tobacco service: No Meds Allergies Allergy/AdvReac Type Severity Reaction Status Date / Time No Known Allergies Allergy Verified 04/16/23 14:12 Active Medications: Current Medications Heparin Sodium (Porcine) (Heparin Sodium,Porcine 5,000 Unit/Ml Vial) 5,000 unit SUBCUT Q12H [facility] Last Admin: 04/16/23 21:20 Dose: 5,000 unit Insulin Human Regular (Myxredlin) 100 unit in 100 mls @ 20 mls/hr IVCONT .Q5H LG; Protocol Last Admin: 04/16/23 21:14 Dose: 10 unit/hr, 10 mls/hr Lactated Ringer's (Lr) 500 mls @ 200 mls/hr IVCONT .Q2H30M LG Last Admin: 04/16/23 21:22 Dose: 200 mls/hr Home Medications Medication Instructions Recorded Confirmed Last Taken Type atorvastatin 40 mg tablet 40 mg PO DAILY 03/17/23 04/16/23 04/16/23 09:00 History duloxetine 20 mg capsule,delayed 20 mg PO DAILY 03/17/23 04/16/23 04/16/23 09:00 History release glipizide 10 mg tablet, extended 10 mg PO DAILY 03/17/23 04/16/23 04/16/23 09:00 History release 24 hr levothyroxine 50 mcg tablet 50 mcg PO DAILY@0600 03/17/23 04/16/23 04/16/23 09:00 History memantine 10 mg tablet 10 mg PO DAILY 03/17/23 04/16/23 04/16/23 09:00 History metoprolol succinate 50 mg 50 mg PO DAILY 03/17/23 04/16/23 04/16/23 09:00 History tablet,extended release 24 hr acetaminophen 650 mg 650 mg PO BID 04/16/23 04/16/23 04/16/23 09:00 History tablet,extended release amlodipine 5 mg tablet 5 mg PO DAILY 04/16/23 04/16/23 04/16/23 09:00 History dexamethasone 4 mg tablet 4 mg PO BID 04/16/23 04/16/23 04/16/23 09:00 History Physical Exam Vital Signs: Vital Signs: Last Vital Signs Temp 93.9 F L 04/16/23 21:30 Pulse 114 H 04/16/23 20:01 Resp 22 H 04/16/23 20:01 BP 118/46 L 04/16/23 20:01 Pulse Ox 100 04/16/23 20:16 O2 Del Method Room Air 04/16/23 20:16 O2 Flow Rate 5 04/16/23 20:01 BMI result Body Mass Index 20.0 Const: General: confusion and lethargic Orientation/consciousness: confusion and lethargic HEENT: Head: Yes normocephalic and Yes atraumatic General nose exam: Normal external nose present (Nares patent, septum midline, sinuses nontender bilaterally.) Mouth: Normal oral and palatal mucosa present (No thrush, tongue in midline, mucosa moist.) Throat: Yes other (No erythema, no exudate.) Neck: Neck: Yes supple (no thyromegaly, trachea midline.) Carotids: normal carotid upstroke Resp: Auscultation: clear to auscultation bilaterally Cardio: Jugular venous distension: no JVD Rate: regular rate Rhythm: regular rhythm Heart sounds: no gallops, no murmurs and no rubs Peripheral pulses: Peripheral pulses 2+ throughout GI: Palpation (GI): Soft to palpation (nondistended.) and nontender Skin: General skin exam: dry skin Wounds: wounds noted (left lower buttock pressure wound) Neuro: General: confusion Extrem: General: Yes full ROM, Yes capillary refill normal and Yes no clubbing, cyanosis or edema Results Labs 04/16/23 14:50 04/16/23 22:29 Labs: Laboratory Results - last 24 hr 04/16/23 04/16/23 04/16/23 14:50 14:54 14:58 MCV 93.6 MCH 30.0 MCHC 32.1 RDW 14.4 Plt Count 240 MPV 10.7 Immature Gran % (Auto) Cancelled Neut % (Auto) Cancelled Lymph % (Auto) Cancelled [place] % (Auto) Cancelled Eos % (Auto) Cancelled Baso % (Auto) Cancelled Lymph # (Auto) Cancelled [place] # (Auto) Cancelled Eos # (Auto) Cancelled Baso # (Auto) Cancelled Abs Immat Gran (auto) Cancelled Absolute Neuts (auto) Cancelled Absolute Nucleated RBC 0.000 Nucleated RBC % (auto) 0.0 Neutrophils % (Manual) 76 H Band Neutrophils % 11 H Lymphocytes % (Manual) 8 L Monocytes % (Manual) 2 Metamyelocytes % 1 Myelocytes % 1 Promyelocytes % 1 Abs Neuts (Manual) 10.0 H Lymphocytes # (Manual) 0.9 L Monocytes # (Manual) 0.2 Metamyelocytes # 0.1 Myelocytes # 0.1 Promyelocytes # 0.1 Platelet Estimate TNP Plt Morphology Comment NORMAL RBC Morphology NOTED Acanthocytes (Spur) 3+ (>5) Hold Purple Top PT 9.7 L INR 0.8 L O2 Saturation ABG pH at Pt Temp ABG pCO2 at Pt Temp ABG pO2 at Pt Temp ABG HCO3 ABG Base Excess (Actual) VBG pH 7.01 L* VBG pCO2 11 VBG pO2 128 VBG HCO3 3 L VBG O2 Saturation 99.0 VBG Base Excess -25.7 Anion Gap TNP Estim Creat Clear Calc 22.5 Estimated GFR 35 POC Glucose 541 H* Random Glucose 672 H* Calcium 9.4 D Magnesium 2.6 Total Bilirubin 0.8 AST 81 H ALT 151 H Alkaline Phosphatase 158 H Ammonia B-Natriuretic Peptide 195 H Total Protein 6.5 Albumin 3.4 L Beta-Hydroxybutyrate 11.70 H TSH 1.60 Urine Color Urine Appearance Urine pH Ur Specific [place] Urine Protein Urine Glucose (UA) Urine Ketones Urine Blood Urine Nitrite Ur Leukocyte Esterase Urine RBC Urine WBC Ur Squamous Epith Cells Urine Bacteria Hyaline Casts Influenza Type A (PCR) NEGATIVE Influenza Type B (PCR) NEGATIVE RSV RNA Qual (PCR) NEGATIVE SARS-CoV-2 RNA (RT-PCR) NEGATIVE 04/16/23 04/16/23 04/16/23 15:53 16:00 16:22 MCV MCH MCHC RDW Plt Count MPV Immature Gran % (Auto) Neut % (Auto) Lymph % (Auto) [place] % (Auto) Eos % (Auto) Baso % (Auto) Lymph # (Auto) [place] # (Auto) Eos # (Auto) Baso # (Auto) Abs Immat Gran (auto) Absolute Neuts (auto) Absolute Nucleated RBC Nucleated RBC % (auto) Neutrophils % (Manual) Band Neutrophils % Lymphocytes % (Manual) Monocytes % (Manual) Metamyelocytes % Myelocytes % Promyelocytes % Abs Neuts (Manual) Lymphocytes # (Manual) Monocytes # (Manual) Metamyelocytes # Myelocytes # Promyelocytes # Platelet Estimate Plt Morphology Comment RBC Morphology Acanthocytes (Spur) Hold Purple Top SEE NOTE PT INR O2 Saturation ABG pH at Pt Temp ABG pCO2 at Pt Temp ABG pO2 at Pt Temp ABG HCO3 ABG Base Excess (Actual) VBG pH VBG pCO2 VBG pO2 VBG HCO3 VBG O2 Saturation VBG Base Excess Anion Gap Estim Creat Clear Calc Estimated GFR POC Glucose 548 H* Random Glucose Calcium Magnesium Total Bilirubin AST ALT Alkaline Phosphatase Ammonia 75 H B-Natriuretic Peptide Total Protein Albumin Beta-Hydroxybutyrate TSH Urine Color Yellow Urine Appearance Clear Urine pH 5.5 Ur Specific [place] >= 1.030 H Urine Protein 30 (1+) H Urine Glucose (UA) >=1000 H Urine Ketones >=160 Urine Blood Moderate (2+) H Urine Nitrite Negative Ur Leukocyte Esterase Negative Urine RBC 3-5 H Urine WBC 0-5 Ur Squamous Epith Cells 0-2 Urine Bacteria None Seen Hyaline Casts 3-5 Influenza Type A (PCR) Influenza Type B (PCR) RSV RNA Qual (PCR) SARS-CoV-2 RNA (RT-PCR) 04/16/23 04/16/23 04/16/23 17:14 18:02 18:11 MCV MCH MCHC RDW Plt Count MPV Immature Gran % (Auto) Neut % (Auto) Lymph % (Auto) [place] % (Auto) Eos % (Auto) Baso % (Auto) Lymph # (Auto) [place] # (Auto) Eos # (Auto) Baso # (Auto) Abs Immat Gran (auto) Absolute Neuts (auto) Absolute Nucleated RBC Nucleated RBC % (auto) Neutrophils % (Manual) Band Neutrophils % Lymphocytes % (Manual) Monocytes % (Manual) Metamyelocytes % Myelocytes % Promyelocytes % Abs Neuts (Manual) Lymphocytes # (Manual) Monocytes # (Manual) Metamyelocytes # Myelocytes # Promyelocytes # Platelet Estimate Plt Morphology Comment RBC Morphology Acanthocytes (Spur) Hold Purple Top PT INR O2 Saturation 100.0 ABG pH at Pt Temp 7.20 L* ABG pCO2 at Pt Temp 8 L* ABG pO2 at Pt Temp 200 H ABG HCO3 3 L ABG Base Excess (Actual) -21.4 VBG pH VBG pCO2 VBG pO2 VBG HCO3 VBG O2 Saturation VBG Base Excess Anion Gap Estim Creat Clear Calc Estimated GFR POC Glucose 468 H* 414 H* Random Glucose Calcium Magnesium Total Bilirubin AST ALT Alkaline Phosphatase Ammonia B-Natriuretic Peptide Total Protein Albumin Beta-Hydroxybutyrate TSH Urine Color Urine Appearance Urine pH Ur Specific [place] Urine Protein Urine Glucose (UA) Urine Ketones Urine Blood Urine Nitrite Ur Leukocyte Esterase Urine RBC Urine WBC Ur Squamous Epith Cells Urine Bacteria Hyaline Casts Influenza Type A (PCR) Influenza Type B (PCR) RSV RNA Qual (PCR) SARS-CoV-2 RNA (RT-PCR) 04/16/23 04/16/23 04/16/23 19:16 20:12 21:06 MCV MCH MCHC RDW Plt Count MPV Immature Gran % (Auto) Neut % (Auto) Lymph % (Auto) [place] % (Auto) Eos % (Auto) Baso % (Auto) Lymph # (Auto) [place] # (Auto) Eos # (Auto) Baso # (Auto) Abs Immat Gran (auto) Absolute Neuts (auto) Absolute Nucleated RBC Nucleated RBC % (auto) Neutrophils % (Manual) Band Neutrophils % Lymphocytes % (Manual) Monocytes % (Manual) Metamyelocytes % Myelocytes % Promyelocytes % Abs Neuts (Manual) Lymphocytes # (Manual) Monocytes # (Manual) Metamyelocytes # Myelocytes # Promyelocytes # Platelet Estimate Plt Morphology Comment RBC Morphology Acanthocytes (Spur) Hold Purple Top PT INR O2 Saturation ABG pH at Pt Temp ABG pCO2 at Pt Temp ABG pO2 at Pt Temp ABG HCO3 ABG Base Excess (Actual) VBG pH VBG pCO2 VBG pO2 VBG HCO3 VBG O2 Saturation VBG Base Excess Anion Gap Estim Creat Clear Calc Estimated GFR POC Glucose 397 H* 335 H 347 H Random Glucose Calcium Magnesium Total Bilirubin AST ALT Alkaline Phosphatase Ammonia B-Natriuretic Peptide Total Protein Albumin Beta-Hydroxybutyrate TSH Urine Color Urine Appearance Urine pH Ur Specific [place] Urine Protein Urine Glucose (UA) Urine Ketones Urine Blood Urine Nitrite Ur Leukocyte Esterase Urine RBC Urine WBC Ur Squamous Epith Cells Urine Bacteria Hyaline Casts Influenza Type A (PCR) Influenza Type B (PCR) RSV RNA Qual (PCR) SARS-CoV-2 RNA (RT-PCR) 04/16/23 21:56 MCV MCH MCHC RDW Plt Count MPV Immature Gran % (Auto) Neut % (Auto) Lymph % (Auto) [place] % (Auto) Eos % (Auto) Baso % (Auto) Lymph # (Auto) [place] # (Auto) Eos # (Auto) Baso # (Auto) Abs Immat Gran (auto) Absolute Neuts (auto) Absolute Nucleated RBC Nucleated RBC % (auto) Neutrophils % (Manual) Band Neutrophils % Lymphocytes % (Manual) Monocytes % (Manual) Metamyelocytes % Myelocytes % Promyelocytes % Abs Neuts (Manual) Lymphocytes # (Manual) Monocytes # (Manual) Metamyelocytes # Myelocytes # Promyelocytes # Platelet Estimate Plt Morphology Comment RBC Morphology Acanthocytes (Spur) Hold Purple Top PT INR O2 Saturation ABG pH at Pt Temp ABG pCO2 at Pt Temp ABG pO2 at Pt Temp ABG HCO3 ABG Base Excess (Actual) VBG pH VBG pCO2 VBG pO2 VBG HCO3 VBG O2 Saturation VBG Base Excess Anion Gap Estim Creat Clear Calc Estimated GFR POC Glucose 314 H Random Glucose Calcium Magnesium Total Bilirubin AST ALT Alkaline Phosphatase Ammonia B-Natriuretic Peptide Total Protein Albumin Beta-Hydroxybutyrate TSH Urine Color Urine Appearance Urine pH Ur Specific [place] Urine Protein Urine Glucose (UA) Urine Ketones Urine Blood Urine Nitrite Ur Leukocyte Esterase Urine RBC Urine WBC Ur Squamous Epith Cells Urine Bacteria Hyaline Casts Influenza Type A (PCR) Influenza Type B (PCR) RSV RNA Qual (PCR) SARS-CoV-2 RNA (RT-PCR) Imaging Radiologist's Impressions: Impressions Chest X-Ray 04/16/23 16:08 IMPRESSION: No evidence of acute disease. Head CT 04/16/23 20:50 IMPRESSION: 1. Subtle new focal hypodensity in the right occipital lobe with equivocal loss of the lopez-white matter differentiation; unsure if this could represent an artifact from volume averaging versus a true acute infarction. Recommend further evaluation with an MR of the brain. 2. No evidence of acute intracranial hemorrhage or edematous infarction. Chest X-Ray 04/16/23 20:58 IMPRESSION: 1. No evidence of central venous catheters. 2. No pneumothorax. 3. Clear lungs. Assessment and Plan (1) Hypothermia: Qualifiers: Encounter type: initial encounter Qualified Code(s): T68.XXXA - Hypothermia, initial encounter Status: Acute (2) DAPHNIE (acute kidney injury): Status: Acute (3) Diabetic ketoacidosis: Status: Acute Plan 77-yo female? with PMHx of hypothyroidism, hypertension, hyperlipidemia, and diabetes presented with diabetic ketoacidosis requiring admission for management of DKA. IMPRESSION: 1. Acute DKA.? Rx fluids and insulin 20 u/hr. 2. Severe hypovolemia.? She?s had 1.8L NS.? Change to LR at 500cc/hr. 3. DAPHNIE.? 2? above. 4. Hyperkalemia.? 2? above.? Potassium will come down rapidly with the insulin. 5. ? Sepsis.? Only real evidence is mild leukocytosis, which could be an acute phase reactant, along with altered MS, which in this case is nonspecific.? She doesn?t have a UTI, and her A-a gradient is near normal and CXR is clear, so she doesn?t have pneumonia.? I don?t think she?s infected.? BCs were drawn, she?s had one dose of ceftriaxone in ED, I wouldn?t give her any more unless something shows up.? No need for lactate levels. 6. Vertebral compression fx?s.? (By history.)? Can be reassessed while she?s here. Total time managing care of this patient today: 60 minutes.
[2023-04-16 22:40] LABS: VBG HCO3 6 mmol/L (22-26); VBG pCO2 13 mmHg; VBG pH 7.28 (7.32-7.43); VBG pO2 60 mmHg
[2023-04-16 22:42] LABS: Venous Blood Gas Refer to POC result
[2023-04-16 22:58] LABS: Anion Gap 31 (12-20); Blood Urea Nitrogen 25 mg/dL (9-16); Calcium 8.6 mg/dL (8.4-10.2); Carbon Dioxide 7 mmol/L (22-29); Chloride 110 mmol/L (96-108); Creatinine Clr Calc Pharmacy 34.9; Estimated Glomerular Filt Rate 57; Glucose Random 282 mg/dL (60-115); Potassium 3.2 mmol/L (3.3-5.1); Sodium 145 mmol/L (135-145)
[2023-04-16] MEDS: Potassium Chloride/H20 10 MEQ/100 ML PIGGYBACK 100 MEQ IV (23:18)
[2023-04-16 23:27] LABS: Glucose, Whole Blood 291 mg/dL (60-115)
[2023-04-17] VITALS (24 sets, daily range): BP systolic 95–149; BP diastolic 46–73; PULSE 92–121; RESP 14–24; TEMP 35–37.5; O2SAT 90–100; BMI 21.1
[2023-04-17 00:40] LABS: Glucose, Whole Blood 256 mg/dL (60-115)
[2023-04-17] MEDS: KCl 20 mEq in 5% Dex/0.45% Sod 20 MEQ/1,000 ML IV.SOLN 150 MEQ IVCONT ×2 (00:53→05:53)
--- NOTE | 2023-04-17 01:34 | HO.SKINPHOTO ---
Location: Left buttock Category: Pressure Stage: II Location: Coccyx Category: Pressure Stage: I
[2023-04-17 02:05] LABS: Glucose, Whole Blood 240 mg/dL (60-115)
[2023-04-17 02:38] LABS: Anion Gap 26 (12-20); Blood Urea Nitrogen 23 mg/dL (9-16); Calcium 8.3 mg/dL (8.4-10.2); Carbon Dioxide 12 mmol/L (22-29); Chloride 110 mmol/L (96-108); Creatinine Clr Calc Pharmacy 40.9; Estimated Glomerular Filt Rate > 60; Glucose Random 235 mg/dL (60-115); Potassium 3.3 mmol/L (3.3-5.1); Sodium 145 mmol/L (135-145)
[2023-04-17 03:19] LABS: Glucose, Whole Blood 224 mg/dL (60-115)
[2023-04-17 04:27] LABS: Glucose, Whole Blood 226 mg/dL (60-115)
[2023-04-17 05:22] LABS: Glucose, Whole Blood 217 mg/dL (60-115)
[2023-04-17 05:33] LABS: VBG Base Excess -7.5 mmol/L; VBG HCO3 13 mmol/L (22-26); VBG pCO2 18 mmHg; VBG pH 7.47 (7.32-7.43); VBG pO2 45 mmHg
[2023-04-17 05:38] LABS: Venous Blood Gas Refer to POC result
[2023-04-17] MEDS: Insulin Regular/NS 100 UNIT/100 ML PLAST..BAG 10 UNIT IVCONT (05:53)
[2023-04-17 06:17] LABS: Glucose, Whole Blood 238 mg/dL (60-115)
[2023-04-17 06:31] LABS: Albumin Level 2.3 g/dL (3.5-5.0); Anion Gap 23 (12-20); Blood Urea Nitrogen 22 mg/dL (9-16); Calcium 8.2 mg/dL (8.4-10.2); Carbon Dioxide 13 mmol/L (22-29); Chloride 110 mmol/L (96-108); Creatinine Clr Calc Pharmacy 42.5; Estimated Glomerular Filt Rate > 60; Glucose Random 228 mg/dL (60-115); Magnesium 1.6 mg/dL (1.6-2.6); Phosphorus 1.3 mg/dL (2.7-4.5); Potassium 3.4 mmol/L (3.3-5.1); Sodium 143 mmol/L (135-145)
[2023-04-17 06:43] LABS: Hematocrit 35.8 % (37.0-47.0); Hemoglobin 12.5 g/dl (12.0-16.0); Mean Corpuscular HGB Conc 34.9 g/dl (31.0-35.0); Mean Corpuscular Hemoglobin 30.4 pg (27.0-33.0); Mean Corpuscular Volume 87.1 fL (80.0-98.0); Red Blood Count 4.11 X10*6/uL (4.20-5.50); Red Cell Distribution Width 14.8 % (11.0-16.0); White Blood Count 8.9 X10*3/uL (4.8-10.8)
[2023-04-17 07:11] LABS: Glucose, Whole Blood 234 mg/dL (60-115)
[2023-04-17 07:49] LABS: Band Neutrophils Percent 10 % (3-5); Lymphocytes Absolute Manual 0.2 X10*3/uL (1.2-4.9); Lymphocytes Percent Manual 2 % (20-40); Metamyelocytes Absolute 0.2 X10*3/uL; Metamyelocytes Percent 2 %; Monocytes Absolute Manual 0.1 X10*3/uL (0.1-1.2); Monocytes Percent Manual 1 % (2-11); Neutrophils Absolute Manual 8.5 X10*3/uL (2.0-8.3); Neutrophils Percent Manual 85 % (45-73); Nucleated Red Blood Cells 1 /100WBC (0-0)
[2023-04-17 07:50] LABS: Burr Cells 3+ (>5) /OIF; Large Platelet PRESENT; Platelet Estimate NORMAL (NORMAL); Platelet Morphology Comment NOTED; RBC Morphology NOTED
[2023-04-17 07:52] LABS: Mean Platelet Volume 11.4 fL (9.4-12.3); Platelet Count 156 X10*3/uL (160-400)
[2023-04-17] MEDS: Magnesium Sulfate/D5W 1 GM/100 ML PIGGYBACK IV (07:58)
[2023-04-17] MEDS: Albumin Human 25 % 100 ML 133.33 ML IV ×2 (07:58→09:18)
[2023-04-17 08:03] LABS: Glucose, Whole Blood 234 mg/dL (60-115)
[2023-04-17] MEDS: Potassium Phosphate/NS 15 MMOL/250 ML PLAST..BAG 62.5 MMOL IV ×3 (08:56→19:31)
[2023-04-17 09:01] LABS: Glucose, Whole Blood 244 mg/dL (60-115)
[2023-04-17] MEDS: Heparin Sodium,Porcine 5,000 UNIT/ML VIAL 5000 UNIT SUBCUT ×2 (09:18→20:56)
--- NOTE | 2023-04-17 09:35 | P.PNCC_ITS ---
Subjective Subjective Date of Service: 04/17/23 Interval History: 77-year-old lady with underlying diabetes mellitus, CAD, hypertension admitted on 05/17/2022 with diabetic ketoacidosis requiring insulin drip. No events overnight. Critical Care Time (minutes): 0 Physical Exam 2 Vital Signs: Vital Signs: Last Vital Signs Temp 97.9 F 04/17/23 09:00 Pulse 97 04/17/23 09:00 Resp 17 04/17/23 09:00 BP 125/50 L 04/17/23 09:00 Pulse Ox 99 04/17/23 09:00 O2 Del Method Room Air 04/17/23 09:00 O2 Flow Rate 5 04/16/23 20:01 BMI result Body Mass Index 21.1 Const: General: no acute distress, alert and awake Eyes: Sclerae: sclerae normal EOM: EOMs intact bilaterally Neck: Neck: Yes no lymphadenopathy, Yes trachea midline and Yes supple Resp: Effort & Inspection: normal respiratory effort and no respiratory distress Auscultation: clear to auscultation bilaterally Cardio: Rate: tachycardic Rhythm: regular rhythm Heart sounds: no gallops, no murmurs and no rubs GI: Palpation (GI): Soft to palpation and Other GI palpation findings present ( Nontender) Auscultation: normal bowel sounds Extrem: General: Yes no pedal edema, No clubbing and No cyanosis Objective Data Labs 04/17/23 05:25 04/17/23 05:25 Labs: Laboratory Results - last 24 hr 04/16/23 04/16/23 04/16/23 14:50 14:54 14:58 WBC 11.5 H RBC 5.16 D Hgb 15.5 D Hct 48.3 H D MCV 93.6 MCH 30.0 MCHC 32.1 RDW 14.4 Plt Count 240 MPV 10.7 Immature Gran % (Auto) Cancelled Neut % (Auto) Cancelled Lymph % (Auto) Cancelled [place] % (Auto) Cancelled Eos % (Auto) Cancelled Baso % (Auto) Cancelled Lymph # (Auto) Cancelled [place] # (Auto) Cancelled Eos # (Auto) Cancelled Baso # (Auto) Cancelled Abs Immat Gran (auto) Cancelled Absolute Neuts (auto) Cancelled Absolute Nucleated RBC 0.000 Nucleated RBC % (auto) 0.0 Neutrophils % (Manual) 76 H Band Neutrophils % 11 H Lymphocytes % (Manual) 8 L Monocytes % (Manual) 2 Metamyelocytes % 1 Myelocytes % 1 Promyelocytes % 1 Abs Neuts (Manual) 10.0 H Lymphocytes # (Manual) 0.9 L Monocytes # (Manual) 0.2 Metamyelocytes # 0.1 Myelocytes # 0.1 Promyelocytes # 0.1 Nucleated RBCs Platelet Estimate TNP Large Platelets Plt Morphology Comment NORMAL RBC Morphology NOTED Jay Cells Acanthocytes (Spur) 3+ (>5) Hold Purple Top PT 9.7 L INR 0.8 L O2 Saturation ABG pH at Pt Temp ABG pCO2 at Pt Temp ABG pO2 at Pt Temp ABG HCO3 ABG Base Excess (Actual) VBG pH 7.01 L* VBG pCO2 11 VBG pO2 128 VBG HCO3 3 L VBG O2 Saturation 99.0 VBG Base Excess -25.7 Sodium 133 L Potassium 6.5 H* D Chloride 95 L Carbon Dioxide < 5 L* D Anion Gap TNP BUN 28 H Creatinine 1.47 H Estim Creat Clear Calc 22.5 Estimated GFR 35 POC Glucose 541 H* Random Glucose 672 H* Calcium 9.4 D Phosphorus Magnesium 2.6 Total Bilirubin 0.8 AST 81 H ALT 151 H Alkaline Phosphatase 158 H Ammonia Troponin I High Sens 36.5 H B-Natriuretic Peptide 195 H Total Protein 6.5 Albumin 3.4 L Beta-Hydroxybutyrate 11.70 H TSH 1.60 Urine Color Urine Appearance Urine pH Ur Specific Justin Urine Protein Urine Glucose (UA) Urine Ketones Urine Blood Urine Nitrite Ur Leukocyte Esterase Urine RBC Urine WBC Ur Squamous Epith Cells Urine Bacteria Hyaline Casts Influenza Type A (PCR) NEGATIVE Influenza Type B (PCR) NEGATIVE RSV RNA Qual (PCR) NEGATIVE SARS-CoV-2 RNA (RT-PCR) NEGATIVE 04/16/23 04/16/23 04/16/23 15:53 16:00 16:22 WBC RBC Hgb Hct MCV MCH MCHC RDW Plt Count MPV Immature Gran % (Auto) Neut % (Auto) Lymph % (Auto) [place] % (Auto) Eos % (Auto) Baso % (Auto) Lymph # (Auto) [place] # (Auto) Eos # (Auto) Baso # (Auto) Abs Immat Gran (auto) Absolute Neuts (auto) Absolute Nucleated RBC Nucleated RBC % (auto) Neutrophils % (Manual) Band Neutrophils % Lymphocytes % (Manual) Monocytes % (Manual) Metamyelocytes % Myelocytes % Promyelocytes % Abs Neuts (Manual) Lymphocytes # (Manual) Monocytes # (Manual) Metamyelocytes # Myelocytes # Promyelocytes # Nucleated RBCs Platelet Estimate Large Platelets Plt Morphology Comment RBC Morphology Jay Cells Acanthocytes (Spur) Hold Purple Top SEE NOTE PT INR O2 Saturation ABG pH at Pt Temp ABG pCO2 at Pt Temp ABG pO2 at Pt Temp ABG HCO3 ABG Base Excess (Actual) VBG pH VBG pCO2 VBG pO2 VBG HCO3 VBG O2 Saturation VBG Base Excess Sodium Potassium Chloride Carbon Dioxide Anion Gap BUN Creatinine Estim Creat Clear Calc Estimated GFR POC Glucose 548 H* Random Glucose Calcium Phosphorus Magnesium Total Bilirubin AST ALT Alkaline Phosphatase Ammonia 75 H Troponin I High Sens B-Natriuretic Peptide Total Protein Albumin Beta-Hydroxybutyrate TSH Urine Color Yellow Urine Appearance Clear Urine pH 5.5 Ur Specific Justin >= 1.030 H Urine Protein 30 (1+) H Urine Glucose (UA) >=1000 H Urine Ketones >=160 Urine Blood Moderate (2+) H Urine Nitrite Negative Ur Leukocyte Esterase Negative Urine RBC 3-5 H Urine WBC 0-5 Ur Squamous Epith Cells 0-2 Urine Bacteria None Seen Hyaline Casts 3-5 Influenza Type A (PCR) Influenza Type B (PCR) RSV RNA Qual (PCR) SARS-CoV-2 RNA (RT-PCR) 04/16/23 04/16/23 04/16/23 17:14 18:02 18:11 WBC RBC Hgb Hct MCV MCH MCHC RDW Plt Count MPV Immature Gran % (Auto) Neut % (Auto) Lymph % (Auto) [place] % (Auto) Eos % (Auto) Baso % (Auto) Lymph # (Auto) [place] # (Auto) Eos # (Auto) Baso # (Auto) Abs Immat Gran (auto) Absolute Neuts (auto) Absolute Nucleated RBC Nucleated RBC % (auto) Neutrophils % (Manual) Band Neutrophils % Lymphocytes % (Manual) Monocytes % (Manual) Metamyelocytes % Myelocytes % Promyelocytes % Abs Neuts (Manual) Lymphocytes # (Manual) Monocytes # (Manual) Metamyelocytes # Myelocytes # Promyelocytes # Nucleated RBCs Platelet Estimate Large Platelets Plt Morphology Comment RBC Morphology Seeley Cells Acanthocytes (Spur) Hold Purple Top PT INR O2 Saturation 100.0 ABG pH at Pt Temp 7.20 L* ABG pCO2 at Pt Temp 8 L* ABG pO2 at Pt Temp 200 H ABG HCO3 3 L ABG Base Excess (Actual) -21.4 VBG pH VBG pCO2 VBG pO2 VBG HCO3 VBG O2 Saturation VBG Base Excess Sodium Potassium Chloride Carbon Dioxide Anion Gap BUN Creatinine Estim Creat Clear Calc Estimated GFR POC Glucose 468 H* 414 H* Random Glucose Calcium Phosphorus Magnesium Total Bilirubin AST ALT Alkaline Phosphatase Ammonia Troponin I High Sens B-Natriuretic Peptide Total Protein Albumin Beta-Hydroxybutyrate TSH Urine Color Urine Appearance Urine pH Ur Specific Justin Urine Protein Urine Glucose (UA) Urine Ketones Urine Blood Urine Nitrite Ur Leukocyte Esterase Urine RBC Urine WBC Ur Squamous Epith Cells Urine Bacteria Hyaline Casts Influenza Type A (PCR) Influenza Type B (PCR) RSV RNA Qual (PCR) SARS-CoV-2 RNA (RT-PCR) 04/16/23 04/16/23 04/16/23 19:16 20:12 21:06 WBC RBC Hgb Hct MCV MCH MCHC RDW Plt Count MPV Immature Gran % (Auto) Neut % (Auto) Lymph % (Auto) [place] % (Auto) Eos % (Auto) Baso % (Auto) Lymph # (Auto) [place] # (Auto) Eos # (Auto) Baso # (Auto) Abs Immat Gran (auto) Absolute Neuts (auto) Absolute Nucleated RBC Nucleated RBC % (auto) Neutrophils % (Manual) Band Neutrophils % Lymphocytes % (Manual) Monocytes % (Manual) Metamyelocytes % Myelocytes % Promyelocytes % Abs Neuts (Manual) Lymphocytes # (Manual) Monocytes # (Manual) Metamyelocytes # Myelocytes # Promyelocytes # Nucleated RBCs Platelet Estimate Large Platelets Plt Morphology Comment RBC Morphology Jay Cells Acanthocytes (Spur) Hold Purple Top PT INR O2 Saturation ABG pH at Pt Temp ABG pCO2 at Pt Temp ABG pO2 at Pt Temp ABG HCO3 ABG Base Excess (Actual) VBG pH VBG pCO2 VBG pO2 VBG HCO3 VBG O2 Saturation VBG Base Excess Sodium Potassium Chloride Carbon Dioxide Anion Gap BUN Creatinine Estim Creat Clear Calc Estimated GFR POC Glucose 397 H* 335 H 347 H Random Glucose Calcium Phosphorus Magnesium Total Bilirubin AST ALT Alkaline Phosphatase Ammonia Troponin I High Sens B-Natriuretic Peptide Total Protein Albumin Beta-Hydroxybutyrate TSH Urine Color Urine Appearance Urine pH Ur Specific Justin Urine Protein Urine Glucose (UA) Urine Ketones Urine Blood Urine Nitrite Ur Leukocyte Esterase Urine RBC Urine WBC Ur Squamous Epith Cells Urine Bacteria Hyaline Casts Influenza Type A (PCR) Influenza Type B (PCR) RSV RNA Qual (PCR) SARS-CoV-2 RNA (RT-PCR) 04/16/23 04/16/23 04/16/23 21:56 22:29 22:32 WBC RBC Hgb Hct MCV MCH MCHC RDW Plt Count MPV Immature Gran % (Auto) Neut % (Auto) Lymph % (Auto) [place] % (Auto) Eos % (Auto) Baso % (Auto) Lymph # (Auto) [place] # (Auto) Eos # (Auto) Baso # (Auto) Abs Immat Gran (auto) Absolute Neuts (auto) Absolute Nucleated RBC Nucleated RBC % (auto) Neutrophils % (Manual) Band Neutrophils % Lymphocytes % (Manual) Monocytes % (Manual) Metamyelocytes % Myelocytes % Promyelocytes % Abs Neuts (Manual) Lymphocytes # (Manual) Monocytes # (Manual) Metamyelocytes # Myelocytes # Promyelocytes # Nucleated RBCs Platelet Estimate Large Platelets Plt Morphology Comment RBC Morphology Seeley Cells Acanthocytes (Spur) Hold Purple Top PT INR O2 Saturation ABG pH at Pt Temp ABG pCO2 at Pt Temp ABG pO2 at Pt Temp ABG HCO3 ABG Base Excess (Actual) VBG pH 7.28 L VBG pCO2 13 VBG pO2 60 VBG HCO3 6 L VBG O2 Saturation 90.0 VBG Base Excess -17.0 Sodium 145 Potassium 3.2 L D Chloride 110 H Carbon Dioxide 7 L* D Anion Gap 31 H BUN 25 H Creatinine 0.95 Estim Creat Clear Calc 34.9 Estimated GFR 57 POC Glucose 314 H Random Glucose 282 H Calcium 8.6 D Phosphorus Magnesium Total Bilirubin AST ALT Alkaline Phosphatase Ammonia Troponin I High Sens B-Natriuretic Peptide Total Protein Albumin Beta-Hydroxybutyrate TSH Urine Color Urine Appearance Urine pH Ur Specific Justin Urine Protein Urine Glucose (UA) Urine Ketones Urine Blood Urine Nitrite Ur Leukocyte Esterase Urine RBC Urine WBC Ur Squamous Epith Cells Urine Bacteria Hyaline Casts Influenza Type A (PCR) Influenza Type B (PCR) RSV RNA Qual (PCR) SARS-CoV-2 RNA (RT-PCR) 04/16/23 04/17/23 04/17/23 23:18 00:37 01:54 WBC RBC Hgb Hct MCV MCH MCHC RDW Plt Count MPV Immature Gran % (Auto) Neut % (Auto) Lymph % (Auto) [place] % (Auto) Eos % (Auto) Baso % (Auto) Lymph # (Auto) [place] # (Auto) Eos # (Auto) Baso # (Auto) Abs Immat Gran (auto) Absolute Neuts (auto) Absolute Nucleated RBC Nucleated RBC % (auto) Neutrophils % (Manual) Band Neutrophils % Lymphocytes % (Manual) Monocytes % (Manual) Metamyelocytes % Myelocytes % Promyelocytes % Abs Neuts (Manual) Lymphocytes # (Manual) Monocytes # (Manual) Metamyelocytes # Myelocytes # Promyelocytes # Nucleated RBCs Platelet Estimate Large Platelets Plt Morphology Comment RBC Morphology Jay Cells Acanthocytes (Spur) Hold Purple Top PT INR O2 Saturation ABG pH at Pt Temp ABG pCO2 at Pt Temp ABG pO2 at Pt Temp ABG HCO3 ABG Base Excess (Actual) VBG pH VBG pCO2 VBG pO2 VBG HCO3 VBG O2 Saturation VBG Base Excess Sodium Potassium Chloride Carbon Dioxide Anion Gap BUN Creatinine Estim Creat Clear Calc Estimated GFR POC Glucose 291 H 256 H 240 H Random Glucose Calcium Phosphorus Magnesium Total Bilirubin AST ALT Alkaline Phosphatase Ammonia Troponin I High Sens B-Natriuretic Peptide Total Protein Albumin Beta-Hydroxybutyrate TSH Urine Color Urine Appearance Urine pH Ur Specific Justin Urine Protein Urine Glucose (UA) Urine Ketones Urine Blood Urine Nitrite Ur Leukocyte Esterase Urine RBC Urine WBC Ur Squamous Epith Cells Urine Bacteria Hyaline Casts Influenza Type A (PCR) Influenza Type B (PCR) RSV RNA Qual (PCR) SARS-CoV-2 RNA (RT-PCR) 04/17/23 04/17/23 04/17/23 02:15 03:11 04:23 WBC RBC Hgb Hct MCV MCH MCHC RDW Plt Count MPV Immature Gran % (Auto) Neut % (Auto) Lymph % (Auto) [place] % (Auto) Eos % (Auto) Baso % (Auto) Lymph # (Auto) [place] # (Auto) Eos # (Auto) Baso # (Auto) Abs Immat Gran (auto) Absolute Neuts (auto) Absolute Nucleated RBC Nucleated RBC % (auto) Neutrophils % (Manual) Band Neutrophils % Lymphocytes % (Manual) Monocytes % (Manual) Metamyelocytes % Myelocytes % Promyelocytes % Abs Neuts (Manual) Lymphocytes # (Manual) Monocytes # (Manual) Metamyelocytes # Myelocytes # Promyelocytes # Nucleated RBCs Platelet Estimate Large Platelets Plt Morphology Comment RBC Morphology Jay Cells Acanthocytes (Spur) Hold Purple Top PT INR O2 Saturation ABG pH at Pt Temp ABG pCO2 at Pt Temp ABG pO2 at Pt Temp ABG HCO3 ABG Base Excess (Actual) VBG pH VBG pCO2 VBG pO2 VBG HCO3 VBG O2 Saturation VBG Base Excess Sodium 145 Potassium 3.3 Chloride 110 H Carbon Dioxide 12 L Anion Gap 26 H BUN 23 H Creatinine 0.81 Estim Creat Clear Calc 40.9 Estimated GFR > 60 POC Glucose 224 H 226 H Random Glucose 235 H Calcium 8.3 L Phosphorus Magnesium Total Bilirubin AST ALT Alkaline Phosphatase Ammonia Troponin I High Sens B-Natriuretic Peptide Total Protein Albumin Beta-Hydroxybutyrate TSH Urine Color Urine Appearance Urine pH Ur Specific Justin Urine Protein Urine Glucose (UA) Urine Ketones Urine Blood Urine Nitrite Ur Leukocyte Esterase Urine RBC Urine WBC Ur Squamous Epith Cells Urine Bacteria Hyaline Casts Influenza Type A (PCR) Influenza Type B (PCR) RSV RNA Qual (PCR) SARS-CoV-2 RNA (RT-PCR) 04/17/23 04/17/23 04/17/23 05:14 05:25 05:27 WBC 8.9 RBC 4.11 L D Hgb 12.5 Hct 35.8 L D MCV 87.1 D MCH 30.4 MCHC 34.9 RDW 14.8 Plt Count 156 L D MPV 11.4 Immature Gran % (Auto) Cancelled Neut % (Auto) Cancelled Lymph % (Auto) Cancelled [place] % (Auto) Cancelled Eos % (Auto) Cancelled Baso % (Auto) Cancelled Lymph # (Auto) Cancelled [place] # (Auto) Cancelled Eos # (Auto) Cancelled Baso # (Auto) Cancelled Abs Immat Gran (auto) Cancelled Absolute Neuts (auto) Cancelled Absolute Nucleated RBC 0.000 Nucleated RBC % (auto) 0.0 Neutrophils % (Manual) 85 H Band Neutrophils % 10 H Lymphocytes % (Manual) 2 L Monocytes % (Manual) 1 L Metamyelocytes % 2 Myelocytes % Promyelocytes % Abs Neuts (Manual) 8.5 H Lymphocytes # (Manual) 0.2 L Monocytes # (Manual) 0.1 Metamyelocytes # 0.2 Myelocytes # Promyelocytes # Nucleated RBCs 1 H Platelet Estimate NORMAL Large Platelets PRESENT Plt Morphology Comment NOTED RBC Morphology NOTED Seeley Cells 3+ (>5) Acanthocytes (Spur) Hold Purple Top PT INR O2 Saturation ABG pH at Pt Temp ABG pCO2 at Pt Temp ABG pO2 at Pt Temp ABG HCO3 ABG Base Excess (Actual) VBG pH 7.47 H VBG pCO2 18 VBG pO2 45 VBG HCO3 13 L VBG O2 Saturation 80.0 VBG Base Excess -7.5 Sodium 143 Potassium 3.4 Chloride 110 H Carbon Dioxide 13 L Anion Gap 23 H BUN 22 H Creatinine 0.78 Estim Creat Clear Calc 42.5 Estimated GFR > 60 POC Glucose 217 H Random Glucose 228 H Calcium 8.2 L Phosphorus 1.3 L Magnesium 1.6 Total Bilirubin AST ALT Alkaline Phosphatase Ammonia Troponin I High Sens B-Natriuretic Peptide Total Protein Albumin 2.3 L Beta-Hydroxybutyrate TSH Urine Color Urine Appearance Urine pH Ur Specific Justin Urine Protein Urine Glucose (UA) Urine Ketones Urine Blood Urine Nitrite Ur Leukocyte Esterase Urine RBC Urine WBC Ur Squamous Epith Cells Urine Bacteria Hyaline Casts Influenza Type A (PCR) Influenza Type B (PCR) RSV RNA Qual (PCR) SARS-CoV-2 RNA (RT-PCR) 04/17/23 04/17/23 04/17/23 06:14 07:05 07:59 WBC RBC Hgb Hct MCV MCH MCHC RDW Plt Count MPV Immature Gran % (Auto) Neut % (Auto) Lymph % (Auto) [place] % (Auto) Eos % (Auto) Baso % (Auto) Lymph # (Auto) [place] # (Auto) Eos # (Auto) Baso # (Auto) Abs Immat Gran (auto) Absolute Neuts (auto) Absolute Nucleated RBC Nucleated RBC % (auto) Neutrophils % (Manual) Band Neutrophils % Lymphocytes % (Manual) Monocytes % (Manual) Metamyelocytes % Myelocytes % Promyelocytes % Abs Neuts (Manual) Lymphocytes # (Manual) Monocytes # (Manual) Metamyelocytes # Myelocytes # Promyelocytes # Nucleated RBCs Platelet Estimate Large Platelets Plt Morphology Comment RBC Morphology Jay Cells Acanthocytes (Spur) Hold Purple Top PT INR O2 Saturation ABG pH at Pt Temp ABG pCO2 at Pt Temp ABG pO2 at Pt Temp ABG HCO3 ABG Base Excess (Actual) VBG pH VBG pCO2 VBG pO2 VBG HCO3 VBG O2 Saturation VBG Base Excess Sodium Potassium Chloride Carbon Dioxide Anion Gap BUN Creatinine Estim Creat Clear Calc Estimated GFR POC Glucose 238 H 234 H 234 H Random Glucose Calcium Phosphorus Magnesium Total Bilirubin AST ALT Alkaline Phosphatase Ammonia Troponin I High Sens B-Natriuretic Peptide Total Protein Albumin Beta-Hydroxybutyrate TSH Urine Color Urine Appearance Urine pH Ur Specific Justin Urine Protein Urine Glucose (UA) Urine Ketones Urine Blood Urine Nitrite Ur Leukocyte Esterase Urine RBC Urine WBC Ur Squamous Epith Cells Urine Bacteria Hyaline Casts Influenza Type A (PCR) Influenza Type B (PCR) RSV RNA Qual (PCR) SARS-CoV-2 RNA (RT-PCR) 04/17/23 08:55 WBC RBC Hgb Hct MCV MCH MCHC RDW Plt Count MPV Immature Gran % (Auto) Neut % (Auto) Lymph % (Auto) [place] % (Auto) Eos % (Auto) Baso % (Auto) Lymph # (Auto) [place] # (Auto) Eos # (Auto) Baso # (Auto) Abs Immat Gran (auto) Absolute Neuts (auto) Absolute Nucleated RBC Nucleated RBC % (auto) Neutrophils % (Manual) Band Neutrophils % Lymphocytes % (Manual) Monocytes % (Manual) Metamyelocytes % Myelocytes % Promyelocytes % Abs Neuts (Manual) Lymphocytes # (Manual) Monocytes # (Manual) Metamyelocytes # Myelocytes # Promyelocytes # Nucleated RBCs Platelet Estimate Large Platelets Plt Morphology Comment RBC Morphology Jay Cells Acanthocytes (Spur) Hold Purple Top PT INR O2 Saturation ABG pH at Pt Temp ABG pCO2 at Pt Temp ABG pO2 at Pt Temp ABG HCO3 ABG Base Excess (Actual) VBG pH VBG pCO2 VBG pO2 VBG HCO3 VBG O2 Saturation VBG Base Excess Sodium Potassium Chloride Carbon Dioxide Anion Gap BUN Creatinine Estim Creat Clear Calc Estimated GFR POC Glucose 244 H Random Glucose Calcium Phosphorus Magnesium Total Bilirubin AST ALT Alkaline Phosphatase Ammonia Troponin I High Sens B-Natriuretic Peptide Total Protein Albumin Beta-Hydroxybutyrate TSH Urine Color Urine Appearance Urine pH Ur Specific Justin Urine Protein Urine Glucose (UA) Urine Ketones Urine Blood Urine Nitrite Ur Leukocyte Esterase Urine RBC Urine WBC Ur Squamous Epith Cells Urine Bacteria Hyaline Casts Influenza Type A (PCR) Influenza Type B (PCR) RSV RNA Qual (PCR) SARS-CoV-2 RNA (RT-PCR) Progress Note: A&P Assessment and plan (1) Diabetic ketoacidosis: Status: Acute (2) DAPHNIE (acute kidney injury): Status: Acute Plan Assessment: 77-year-old lady admitted with diabetic ketoacidosis requiring insulin drip Plan: Neuro: No acute issues. Cardiac: No acute issues. Pulmonary: No acute issues. Renal: Acute kidney injury secondary to diabetic ketoacidosis improving. Non oliguric. Continue to monitor renal indices and urine output. Endo: Diabetic ketoacidosis, improving. Continue to titrate off insulin drip. GI: No acute issues. ID: No acute issues Heme/Onc: No acute issues. Psych: No acute issues. Miscellaneous: No acute issues. Prophylaxis: Heparin Diet: Nothing by mouth Quality Stroke Does the patient have a stroke diagnosis?: No VTE Prior VTE?: No VTE Risk Level:: Medical - moderate - high VTE Device Contraindication: N/A - Device Ordered VTE Drug Contraindication: N/A - Med Ordered
[2023-04-17 10:10] LABS: Glucose, Whole Blood 212 mg/dL (60-115)
[2023-04-17 10:22] LABS: Hematocrit 28.2 % (37.0-47.0); Hemoglobin 9.7 g/dl (12.0-16.0); Mean Corpuscular HGB Conc 34.4 g/dl (31.0-35.0); Mean Corpuscular Hemoglobin 30.1 pg (27.0-33.0); Mean Corpuscular Volume 87.6 fL (80.0-98.0); Mean Platelet Volume 10.7 fL (9.4-12.3); NRBC Pct Auto 0.4 /100WBC (0.0-0.2); Platelet Count 106 X10*3/uL (160-400); Red Blood Count 3.22 X10*6/uL (4.20-5.50); Red Cell Distribution Width 14.7 % (11.0-16.0); White Blood Count 7.8 X10*3/uL (4.8-10.8)
[2023-04-17] MEDS: Insulin Regular/NS 100 UNIT/100 ML PLAST..BAG 19 UNIT IVCONT (10:36)
[2023-04-17 10:52] LABS: Alanine Aminotransferase 146 U/L (0-31); Albumin Level 3.6 g/dL (3.5-5.0); Alkaline Phosphatase 75 U/L (39-117); Anion Gap 21 (12-20); Aspartate Amino Transferase 108 U/L (5-31); Bilirubin Total 0.5 mg/dL (0.0-1.0); Blood Urea Nitrogen 19 mg/dL (9-16); Calcium 8.6 mg/dL (8.4-10.2); Carbon Dioxide 18 mmol/L (22-29); Chloride 109 mmol/L (96-108); Creatinine Clr Calc Pharmacy 41.4; Estimated Glomerular Filt Rate > 60; Glucose Random 184 mg/dL (60-115); Phosphorus 1.4 mg/dL (2.7-4.5); Potassium 3.1 mmol/L (3.3-5.1); Sodium 145 mmol/L (135-145)
[2023-04-17 10:54] LABS: Band Neutrophils Percent 8 % (3-5); Metamyelocytes Absolute 0.2 X10*3/uL; Metamyelocytes Percent 2 %; Monocytes Absolute Manual 0.1 X10*3/uL (0.1-1.2); Monocytes Percent Manual 1 % (2-11); Myelocytes Absolute 0.1 X10*/uL; Myelocytes Percent 1 %; Neutrophils Absolute Manual 7.1 X10*3/uL (2.0-8.3); Neutrophils Percent Manual 83 % (45-73); RBC Morphology NOTED
[2023-04-17 10:55] LABS: Lymphocytes Absolute Manual 0.4 X10*3/uL (1.2-4.9); Lymphocytes Percent Manual 5 % (20-40); Ovalocytes 1+ (5-14) /OIF; Platelet Estimate SLIGHTLY DECREASED (NORMAL); Platelet Morphology Comment NORMAL
--- NOTE | 2023-04-17 11:09 | MHC.CLN ---
NUTRITION DIET=DIABETIC 1800 KCALS-APPROPRIATE. STAGE II PRESSURE INJURY TO LEFT BUTTOCK. ADDING ENSURE MAX PROTEIN BID TO PROMOTE WOUND HEALING. PROVIDES 300 KCALS, 60 G PROTEIN. FOLLOW FOR PO INTAKE AND WOUND HEALING.
[2023-04-17] MEDS: Dextrose 5 % and Lactated Ring 1,000 ML 150 ML IVCONT ×2 (11:57→18:20)
[2023-04-17 12:06] LABS: Glucose, Whole Blood 149 mg/dL (60-115)
[2023-04-17 13:16] LABS: Glucose, Whole Blood 138 mg/dL (60-115)
[2023-04-17 14:03] LABS: Glucose, Whole Blood 116 mg/dL (60-115)
[2023-04-17 15:21] LABS: Glucose, Whole Blood 130 mg/dL (60-115)
--- NOTE | 2023-04-17 15:55 | MHC.CM.PN ---
IMM 04/17/23 Female 77 BIBA from Home. Her son brought her to [place] 1 MO ago from [place]. Patient was admitted to [facility] early March,. She was discharged to a hospital in [place] for a Kyphoplasty. Pt and son declined the surgery after hearing the risks and benefits. brought his Mother back home. She returns to [facility] with DKA. She is admitted to ICU. A HCP was documented last admit. T/W was not able to locate HCP in chart. A copy was requested. was not able to locate his copy of the HCP. Patient is not able to name a HCP today; because she is not alert and awake. was informed that we need to wait until the patient is a+OX3 to name a HCP.
[2023-04-17 16:11] LABS: Glucose, Whole Blood 119 mg/dL (60-115)
[2023-04-17 17:19] LABS: Glucose, Whole Blood 127 mg/dL (60-115)
[2023-04-17 18:01] LABS: Glucose, Whole Blood 128 mg/dL (60-115)
[2023-04-17 18:38] LABS: Anion Gap 17 (12-20); Blood Urea Nitrogen 13 mg/dL (9-16); Calcium 8.1 mg/dL (8.4-10.2); Carbon Dioxide 16 mmol/L (22-29); Chloride 115 mmol/L (96-108); Creatinine Clr Calc Pharmacy 54.3; Estimated Glomerular Filt Rate > 60; Glucose Random 136 mg/dL (60-115); Potassium 3.9 mmol/L (3.3-5.1); Sodium 144 mmol/L (135-145)
[2023-04-17 19:08] LABS: Glucose, Whole Blood 160 mg/dL (60-115)
[2023-04-17 20:23] LABS: Glucose, Whole Blood 189 mg/dL (60-115)
[2023-04-17] MEDS: Insulin Regular/NS 100 UNIT/100 ML PLAST..BAG IVCONT (20:56)
[2023-04-17 21:08] LABS: Glucose, Whole Blood 241 mg/dL (60-115)
[2023-04-17 22:14] LABS: Glucose, Whole Blood 251 mg/dL (60-115)
[2023-04-17 23:07] LABS: Glucose, Whole Blood 251 mg/dL (60-115)
[2023-04-18] VITALS (16 sets, daily range): BP systolic 107–141; BP diastolic 41–75; PULSE 94–123; RESP 13–20; TEMP 36.9–37.7; O2SAT 96–100; BMI 21.1
--- NOTE | 2023-04-18 | ECG_ITS ---
Test Reason : tachycardia Blood Pressure : / mmHG Vent. Rate : 122 BPM Atrial Rate : 122 BPM P-R Int : 122 ms QRS Dur : 062 ms QT Int : 296 ms P-R-T Axes : 043 -12 011 degrees QTc Int : 421 ms Sinus tachycardia with Premature atrial complexes Nonspecific T wave abnormality Abnormal ECG When compared with ECG of 16-APR-2023 14:36, Premature atrial complexes are now Present QRS duration has decreased Non-specific change in ST segment in Inferior leads Nonspecific T wave abnormality now evident in Inferior leads Nonspecific T wave abnormality now evident in Anterolateral leads Referred By: Shilpa Rogers Electronically Signed By:Andrea Culp
[2023-04-18 00:25] LABS: Glucose, Whole Blood 263 mg/dL (60-115)
[2023-04-18 01:14] LABS: Glucose, Whole Blood 229 mg/dL (60-115)
[2023-04-18] MEDS: Dextrose 5 % and Lactated Ring 1,000 ML 100 ML IVCONT (01:49)
[2023-04-18 02:07] LABS: Glucose, Whole Blood 239 mg/dL (60-115)
[2023-04-18 03:20] LABS: Glucose, Whole Blood 228 mg/dL (60-115)
[2023-04-18 04:16] LABS: Glucose, Whole Blood 231 mg/dL (60-115)
[2023-04-18 04:59] LABS: VBG Base Excess 0.3 mmol/L; VBG HCO3 22 mmol/L (22-26); VBG pCO2 28 mmHg; VBG pH 7.49 (7.32-7.43); VBG pO2 42 mmHg
[2023-04-18 05:00] LABS: Venous Blood Gas Refer to POC result
[2023-04-18 05:12] LABS: Glucose, Whole Blood 233 mg/dL (60-115)
[2023-04-18 05:39] LABS: NRBC Pct Auto 0.5 /100WBC (0.0-0.2); PLT CLUMP 1
[2023-04-18 05:41] LABS: Hematocrit 33.7 % (37.0-47.0); Hemoglobin 11.7 g/dl (12.0-16.0); Mean Corpuscular HGB Conc 34.7 g/dl (31.0-35.0); Mean Corpuscular Hemoglobin 30.2 pg (27.0-33.0); Mean Corpuscular Volume 87.1 fL (80.0-98.0); Mean Platelet Volume 11.7 fL (9.4-12.3); Red Blood Count 3.87 X10*6/uL (4.20-5.50); Red Cell Distribution Width 15.7 % (11.0-16.0)
[2023-04-18 05:45] LABS: Platelet Count 141 X10*3/uL (160-400); WBC ABN SCTR FOR CBC 1; White Blood Count 8.1 X10*3/uL (4.8-10.8)
[2023-04-18 05:55] LABS: Albumin Level 2.7 g/dL (3.5-5.0); Anion Gap 16 (12-20); Blood Urea Nitrogen 9 mg/dL (9-16); Calcium 7.8 mg/dL (8.4-10.2); Carbon Dioxide 21 mmol/L (22-29); Chloride 110 mmol/L (96-108); Creatinine Clr Calc Pharmacy 56.2; Estimated Glomerular Filt Rate > 60; Glucose Random 241 mg/dL (60-115); Magnesium 1.7 mg/dL (1.6-2.6); Phosphorus 2.3 mg/dL (2.7-4.5); Potassium 2.6 mmol/L (3.3-5.1); Sodium 144 mmol/L (135-145)
[2023-04-18 06:14] LABS: Glucose, Whole Blood 240 mg/dL (60-115)
[2023-04-18] MEDS: Insulin Glargine,Hum.rec.anlog 100 UNIT/ML 10 ML VIAL 10 UNIT SUBCUT (06:16)
[2023-04-18] MEDS: Albumin Human 25 % 100 ML IV ×3 (06:16→17:27)
[2023-04-18 06:17] LABS: Band Neutrophils Percent 35 % (3-5); Lymphocytes Absolute Manual 0.7 X10*3/uL (1.2-4.9); Lymphocytes Percent Manual 9 % (20-40); Metamyelocytes Absolute 0.2 X10*3/uL; Metamyelocytes Percent 3 %; Monocytes Absolute Manual 0.2 X10*3/uL (0.1-1.2); Monocytes Percent Manual 3 % (2-11); Neutrophils Absolute Manual 6.9 X10*3/uL (2.0-8.3); Neutrophils Percent Manual 50 % (45-73)
[2023-04-18] MEDS: Potassium Chloride/H20 40 MEQ/100 ML PIGGYBACK 50 MEQ IV (06:17)
[2023-04-18 06:18] LABS: Acanthocytes 1+ (0-2) /OIF; Burr Cells 2+ (3-5) /OIF; Macrocytosis 1+ (5-14) /OIF; Ovalocytes 1+ (5-14) /OIF; RBC Morphology NOTED
[2023-04-18 06:21] LABS: Platelet Estimate SLIGHTLY DECREASED (NORMAL); Platelet Morphology Comment NORMAL; Toxic Granulation PRESENT; Toxic Vacuolation PRESENT
[2023-04-18] MEDS: Potassium Phosphate/NS 15 MMOL/250 ML PLAST..BAG 62.5 MMOL IV (06:21)
--- NOTE | 2023-04-18 07:02 | HO.SKINPHOTO ---
Location: Left heel Category: Pressure Stage: DTI
[2023-04-18] MEDS: Potassium Chloride/H20 40 MEQ/100 ML PIGGYBACK 100 MEQ IV (08:58)
[2023-04-18] MEDS: Heparin Sodium,Porcine 5,000 UNIT/ML VIAL 5000 UNIT SUBCUT ×2 (08:59→21:09)
--- NOTE | 2023-04-18 09:05 | PM.NEUROCN ---
History of Present Illness Data of Consult Service Date: 04/18/23 Primary Care Provider: Unknown Physician HPI Reason for consult: altered mental status This is a 77-yo Emirati-speaking only female? with PMHx of hypothyroidism, hypertension, hyperlipidemia, and diabetes and mild dementia admitted with hyperglycemia in the 500s and altered MS. History obtained from the patient?s son.?In November she fell and suffered compression fracture(s) of her spine.? She was hospitalized for about a month in [place] and had a spinal procedure ? vertebroplasty..? She has not been able to walk since then.?On Mar 17, she was admitted at [facility] for treatment of acute UTI, hyponatremia, hypokalemia, and generalized weakness and was seen by Dr. Tamayo in neuro consult. She was dischg?d to home on Mar 23.Her glucose levels at home have been fluctuating high to low over last 3-5 days.? Mental status was clear though, up until today when she became confused. Review of Systems Review of Systems: Yes Unobtainable due to mental status Neurologic: Reports confusion Psychiatric: Psychiatric: Reports confusion [facility] Past Medical History Medical History Non-insulin dependent type 2 diabetes mellitus Hypothyroidism CAD (coronary artery disease) HLD (hyperlipidemia) HTN (hypertension) Surgical History Surgical History History of lumbar surgery Social History Social History Household Members: Family Housing: House Do you presently have visiting nurse or other home services: No Unable to assess alcohol history related to: Unknown Patient Tobacco Use Status: Never used Tobacco service: No Meds Allergies Allergy/AdvReac Type Severity Reaction Status Date / Time No Known Allergies Allergy Verified 04/16/23 14:12 Active Medications: Current Medications Heparin Sodium (Porcine) (Heparin Sodium,Porcine 5,000 Unit/Ml Vial) 5,000 unit SUBCUT Q12H [facility] Last Admin: 04/18/23 08:59 Dose: 5,000 unit Potassium Phosphate (Kphos) 15 mmol in 250 mls @ 62.5 mls/hr IV ONCE ONE Stop: 04/18/23 10:03 Last Admin: 04/18/23 06:21 Dose: 62.5 mls/hr Albumin Human (Kedbumin 25 %) 100 mls @ 100 mls/hr IV Q6H LG Stop: 04/19/23 01:14 Last Infusion: 04/18/23 07:46 Dose: Infused Home Medications Medication Instructions Recorded Confirmed Last Taken Type atorvastatin 40 mg tablet 40 mg PO DAILY 03/17/23 04/16/23 04/16/23 09:00 History duloxetine 20 mg capsule,delayed 20 mg PO DAILY 03/17/23 04/16/23 04/16/23 09:00 History release glipizide 10 mg tablet, extended 10 mg PO DAILY 03/17/23 04/16/23 04/16/23 09:00 History release 24 hr levothyroxine 50 mcg tablet 50 mcg PO DAILY@0600 03/17/23 04/16/23 04/16/23 09:00 History memantine 10 mg tablet 10 mg PO DAILY 03/17/23 04/16/23 04/16/23 09:00 History metoprolol succinate 50 mg 50 mg PO DAILY 03/17/23 04/16/23 04/16/23 09:00 History tablet,extended release 24 hr acetaminophen 650 mg 650 mg PO BID 04/16/23 04/16/23 04/16/23 09:00 History tablet,extended release amlodipine 5 mg tablet 5 mg PO DAILY 04/16/23 04/16/23 04/16/23 09:00 History dexamethasone 4 mg tablet 4 mg PO BID 04/16/23 04/16/23 04/16/23 09:00 History Physical Exam Vital Signs: Vital Signs: Last Vital Signs Temp 98.4 F 04/18/23 07:52 Pulse 109 H 04/18/23 07:52 Resp 13 04/18/23 07:52 BP 141/73 H 04/18/23 07:52 Pulse Ox 100 04/18/23 07:52 O2 Del Method Room Air 04/18/23 07:52 O2 Flow Rate 5 04/16/23 20:01 BMI result Body Mass Index 21.1 Const: General: no acute distress, alert, awake, confusion and lethargic Orientation/consciousness: confusion and lethargic HEENT: Head: Yes normocephalic and Yes atraumatic General nose exam: Normal external nose present (Nares patent, septum midline, sinuses nontender bilaterally.) Mouth: Normal oral and palatal mucosa present (No thrush, tongue in midline, mucosa moist.) Throat: Yes other (No erythema, no exudate.) Eyes: Sclerae: sclerae normal EOM: EOMs intact bilaterally Neck: Neck: Yes no lymphadenopathy, Yes trachea midline and Yes supple Carotids: normal carotid upstroke Resp: Effort & Inspection: normal respiratory effort and no respiratory distress Auscultation: clear to auscultation bilaterally Cardio: Jugular venous distension: no JVD Rate: regular rate and tachycardic Rhythm: regular rhythm Heart sounds: no gallops, no murmurs and no rubs Peripheral pulses: Peripheral pulses 2+ throughout GI: Palpation (GI): Soft to palpation, nontender and Other GI palpation findings present ( Nontender) Auscultation: normal bowel sounds Skin: General skin exam: dry skin Wounds: wounds noted (left lower buttock pressure wound) Neuro: Other: She is slightly lethargic but easily arousable. She follows commands. Speaks in a few words. 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 Plantar response are flexor. General: confusion Extrem: General: Yes full ROM, Yes capillary refill normal, Yes no clubbing, cyanosis or edema, Yes no pedal edema, No clubbing and No cyanosis Results Labs 04/18/23 04:47 04/18/23 04:47 Labs: Short CBC 04/17/23 04/18/23 Range/Units 10:08 04:47 WBC 7.8 8.1 (4.8-10.8) X10*3/uL Hgb 9.7 L D 11.7 L D (12.0-16.0) g/dl Hct 28.2 L D 33.7 L (37.0-47.0) % Plt Count 106 L D 141 L D (160-400) X10*3/uL BMP 04/17/23 04/17/23 04/18/23 10:08 18:16 04:47 Sodium 145 144 144 Potassium 3.1 L 3.9 D 2.6 L D Chloride 109 H 115 H 110 H Carbon Dioxide 18 L 16 L 21 L BUN 19 H 13 9 Creatinine 0.80 0.61 0.59 Calcium 8.6 8.1 L 7.8 L Liver Function 04/17/23 04/18/23 Range/Units 10:08 04:47 Total Bilirubin 0.5 (0.0-1.0) mg/dL AST 108 H (5-31) U/L ALT 146 H (0-31) U/L Alkaline Phosphatase 75 (39-117) U/L Albumin 3.6 2.7 L (3.5-5.0) g/dL Microbiology Microbiology Results: Microbiology 04/16/23 16:00 Blood - Venous Blood Culture - Preliminary No growth after 24 hours. 04/16/23 14:50 Blood - Venous Blood Culture - Preliminary No growth after 24 hours. 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 Recommendation: Control of sugar and blood pressure. Noncontrast MRA of the brain to rule out occlusion of the tip of the basilar artery. (2) Diabetic ketoacidosis: Status: Acute (3) DAPHNIE (acute kidney injury): Status: Acute Plan Assessment: 77-year-old lady admitted with diabetic ketoacidosis requiring insulin drip Plan: Neuro: No acute issues. Cardiac: No acute issues. Pulmonary: No acute issues. Renal: Acute kidney injury secondary to diabetic ketoacidosis improving. Non oliguric. Continue to monitor renal indices and urine output. Endo: Diabetic ketoacidosis, improving. Continue to titrate off insulin drip. GI: No acute issues. ID: No acute issues Heme/Onc: No acute issues. Psych: No acute issues. Miscellaneous: No acute issues. Prophylaxis: Heparin Diet: Nothing by mouth Procedures Date of Service Date of Service: 04/18/23
--- NOTE | 2023-04-18 09:55 | MHC.IC ---
RECENT INFECTION WITH CRE, A HIGHLY RESISTANT BACTERIA. PLEASE FOLLOW STRICT CONTACT PRECAUTIONS.
[2023-04-18 10:07] LABS: Glucose, Whole Blood 260 mg/dL (60-115)
--- NOTE | 2023-04-18 10:09 | PM.CCPN ---
Subjective Subjective Date of Service: 04/18/23 Interval History: 77-year-old lady with underlying diabetes mellitus, CAD, hypertension admitted on 05/17/2022 with diabetic ketoacidosis requiring insulin drip and significant confusion with MRI showing ischemia vs. PRES. No events overnight. Titrated off insulin drip, confusion is somewhat improved. Critical Care Time (minutes): 0 Physical Exam Vital Signs: Vital Signs: Last Vital Signs Temp 98.4 F 04/18/23 10:00 Pulse 104 H 04/18/23 10:00 Resp 18 04/18/23 10:00 BP 107/54 L 04/18/23 10:00 Pulse Ox 100 04/18/23 10:00 O2 Del Method Room Air 04/18/23 10:00 O2 Flow Rate 5 04/16/23 20:01 BMI result Body Mass Index 21.1 Const: General: no acute distress and awake Eyes: Sclerae: sclerae normal EOM: EOMs intact bilaterally Neck: Neck: Yes no lymphadenopathy, Yes trachea midline and Yes supple Resp: Effort & Inspection: normal respiratory effort and no respiratory distress Auscultation: clear to auscultation bilaterally Cardio: Rate: tachycardic Rhythm: regular rhythm Heart sounds: no gallops, no murmurs and no rubs GI: Palpation (GI): Soft to palpation and Other GI palpation findings present ( Nontender) Auscultation: normal bowel sounds Extrem: General: Yes no pedal edema, No clubbing and No cyanosis Objective Data Labs 04/18/23 04:47 04/18/23 04:47 Labs: Laboratory Results - last 24 hr 04/17/23 04/17/23 04/17/23 10:07 10:08 12:02 WBC 7.8 RBC 3.22 L D Hgb 9.7 L D Hct 28.2 L D MCV 87.6 MCH 30.1 MCHC 34.4 RDW 14.7 Plt Count 106 L D MPV 10.7 Immature Gran % (Auto) Cancelled Neut % (Auto) Cancelled Lymph % (Auto) Cancelled [place] % (Auto) Cancelled Eos % (Auto) Cancelled Baso % (Auto) Cancelled Lymph # (Auto) Cancelled [place] # (Auto) Cancelled Eos # (Auto) Cancelled Baso # (Auto) Cancelled Abs Immat Gran (auto) Cancelled Absolute Neuts (auto) Cancelled Absolute Nucleated RBC 0.030 H Nucleated RBC % (auto) 0.4 H Neutrophils % (Manual) 83 H Band Neutrophils % 8 H Lymphocytes % (Manual) 5 L Atypical Lymphs % (Man) Not Reportable Monocytes % (Manual) 1 L Metamyelocytes % 2 Myelocytes % 1 Abs Neuts (Manual) 7.1 Lymphocytes # (Manual) 0.4 L Atyp Lymphs # (Manual) Not Reportable Monocytes # (Manual) 0.1 Metamyelocytes # 0.2 Myelocytes # 0.1 Toxic Granulation Toxic Vacuolation Platelet Estimate SLIGHTLY DECREASED Plt Morphology Comment NORMAL RBC Morphology NOTED Macrocytosis Ovalocytes 1+ (5-14) Jay Cells Acanthocytes (Spur) VBG pH VBG pCO2 VBG pO2 VBG HCO3 VBG O2 Saturation VBG Base Excess Sodium 145 Potassium 3.1 L Chloride 109 H Carbon Dioxide 18 L Anion Gap 21 H BUN 19 H Creatinine 0.80 Estim Creat Clear Calc 41.4 Estimated GFR > 60 POC Glucose 212 H 149 H Random Glucose 184 H Calcium 8.6 Phosphorus 1.4 L Magnesium 2.0 Total Bilirubin 0.5 AST 108 H ALT 146 H Alkaline Phosphatase 75 Total Protein 5.0 L Albumin 3.6 04/17/23 04/17/23 04/17/23 13:12 13:59 15:10 WBC RBC Hgb Hct MCV MCH MCHC RDW Plt Count MPV Immature Gran % (Auto) Neut % (Auto) Lymph % (Auto) [place] % (Auto) Eos % (Auto) Baso % (Auto) Lymph # (Auto) [place] # (Auto) Eos # (Auto) Baso # (Auto) Abs Immat Gran (auto) Absolute Neuts (auto) Absolute Nucleated RBC Nucleated RBC % (auto) Neutrophils % (Manual) Band Neutrophils % Lymphocytes % (Manual) Atypical Lymphs % (Man) Monocytes % (Manual) Metamyelocytes % Myelocytes % Abs Neuts (Manual) Lymphocytes # (Manual) Atyp Lymphs # (Manual) Monocytes # (Manual) Metamyelocytes # Myelocytes # Toxic Granulation Toxic Vacuolation Platelet Estimate Plt Morphology Comment RBC Morphology Macrocytosis Ovalocytes Leroy Cells Acanthocytes (Spur) VBG pH VBG pCO2 VBG pO2 VBG HCO3 VBG O2 Saturation VBG Base Excess Sodium Potassium Chloride Carbon Dioxide Anion Gap BUN Creatinine Estim Creat Clear Calc Estimated GFR POC Glucose 138 H 116 H 130 H Random Glucose Calcium Phosphorus Magnesium Total Bilirubin AST ALT Alkaline Phosphatase Total Protein Albumin 04/17/23 04/17/23 04/17/23 16:07 17:15 17:57 WBC RBC Hgb Hct MCV MCH MCHC RDW Plt Count MPV Immature Gran % (Auto) Neut % (Auto) Lymph % (Auto) [place] % (Auto) Eos % (Auto) Baso % (Auto) Lymph # (Auto) [place] # (Auto) Eos # (Auto) Baso # (Auto) Abs Immat Gran (auto) Absolute Neuts (auto) Absolute Nucleated RBC Nucleated RBC % (auto) Neutrophils % (Manual) Band Neutrophils % Lymphocytes % (Manual) Atypical Lymphs % (Man) Monocytes % (Manual) Metamyelocytes % Myelocytes % Abs Neuts (Manual) Lymphocytes # (Manual) Atyp Lymphs # (Manual) Monocytes # (Manual) Metamyelocytes # Myelocytes # Toxic Granulation Toxic Vacuolation Platelet Estimate Plt Morphology Comment RBC Morphology Macrocytosis Ovalocytes Leroy Cells Acanthocytes (Spur) VBG pH VBG pCO2 VBG pO2 VBG HCO3 VBG O2 Saturation VBG Base Excess Sodium Potassium Chloride Carbon Dioxide Anion Gap BUN Creatinine Estim Creat Clear Calc Estimated GFR POC Glucose 119 H 127 H 128 H Random Glucose Calcium Phosphorus Magnesium Total Bilirubin AST ALT Alkaline Phosphatase Total Protein Albumin 04/17/23 04/17/23 04/17/23 18:16 19:03 20:19 WBC RBC Hgb Hct MCV MCH MCHC RDW Plt Count MPV Immature Gran % (Auto) Neut % (Auto) Lymph % (Auto) [place] % (Auto) Eos % (Auto) Baso % (Auto) Lymph # (Auto) [place] # (Auto) Eos # (Auto) Baso # (Auto) Abs Immat Gran (auto) Absolute Neuts (auto) Absolute Nucleated RBC Nucleated RBC % (auto) Neutrophils % (Manual) Band Neutrophils % Lymphocytes % (Manual) Atypical Lymphs % (Man) Monocytes % (Manual) Metamyelocytes % Myelocytes % Abs Neuts (Manual) Lymphocytes # (Manual) Atyp Lymphs # (Manual) Monocytes # (Manual) Metamyelocytes # Myelocytes # Toxic Granulation Toxic Vacuolation Platelet Estimate Plt Morphology Comment RBC Morphology Macrocytosis Ovalocytes Jay Cells Acanthocytes (Spur) VBG pH VBG pCO2 VBG pO2 VBG HCO3 VBG O2 Saturation VBG Base Excess Sodium 144 Potassium 3.9 D Chloride 115 H Carbon Dioxide 16 L Anion Gap 17 BUN 13 Creatinine 0.61 Estim Creat Clear Calc 54.3 Estimated GFR > 60 POC Glucose 160 H 189 H Random Glucose 136 H Calcium 8.1 L Phosphorus Magnesium Total Bilirubin AST ALT Alkaline Phosphatase Total Protein Albumin 04/17/23 04/17/23 04/17/23 21:03 22:10 23:03 WBC RBC Hgb Hct MCV MCH MCHC RDW Plt Count MPV Immature Gran % (Auto) Neut % (Auto) Lymph % (Auto) [place] % (Auto) Eos % (Auto) Baso % (Auto) Lymph # (Auto) [place] # (Auto) Eos # (Auto) Baso # (Auto) Abs Immat Gran (auto) Absolute Neuts (auto) Absolute Nucleated RBC Nucleated RBC % (auto) Neutrophils % (Manual) Band Neutrophils % Lymphocytes % (Manual) Atypical Lymphs % (Man) Monocytes % (Manual) Metamyelocytes % Myelocytes % Abs Neuts (Manual) Lymphocytes # (Manual) Atyp Lymphs # (Manual) Monocytes # (Manual) Metamyelocytes # Myelocytes # Toxic Granulation Toxic Vacuolation Platelet Estimate Plt Morphology Comment RBC Morphology Macrocytosis Ovalocytes Jay Cells Acanthocytes (Spur) VBG pH VBG pCO2 VBG pO2 VBG HCO3 VBG O2 Saturation VBG Base Excess Sodium Potassium Chloride Carbon Dioxide Anion Gap BUN Creatinine Estim Creat Clear Calc Estimated GFR POC Glucose 241 H 251 H 251 H Random Glucose Calcium Phosphorus Magnesium Total Bilirubin AST ALT Alkaline Phosphatase Total Protein Albumin 04/18/23 04/18/23 04/18/23 00:08 01:10 02:04 WBC RBC Hgb Hct MCV MCH MCHC RDW Plt Count MPV Immature Gran % (Auto) Neut % (Auto) Lymph % (Auto) [place] % (Auto) Eos % (Auto) Baso % (Auto) Lymph # (Auto) [place] # (Auto) Eos # (Auto) Baso # (Auto) Abs Immat Gran (auto) Absolute Neuts (auto) Absolute Nucleated RBC Nucleated RBC % (auto) Neutrophils % (Manual) Band Neutrophils % Lymphocytes % (Manual) Atypical Lymphs % (Man) Monocytes % (Manual) Metamyelocytes % Myelocytes % Abs Neuts (Manual) Lymphocytes # (Manual) Atyp Lymphs # (Manual) Monocytes # (Manual) Metamyelocytes # Myelocytes # Toxic Granulation Toxic Vacuolation Platelet Estimate Plt Morphology Comment RBC Morphology Macrocytosis Ovalocytes Leroy Cells Acanthocytes (Spur) VBG pH VBG pCO2 VBG pO2 VBG HCO3 VBG O2 Saturation VBG Base Excess Sodium Potassium Chloride Carbon Dioxide Anion Gap BUN Creatinine Estim Creat Clear Calc Estimated GFR POC Glucose 263 H 229 H 239 H Random Glucose Calcium Phosphorus Magnesium Total Bilirubin AST ALT Alkaline Phosphatase Total Protein Albumin 04/18/23 04/18/23 04/18/23 03:16 04:12 04:47 WBC 8.1 RBC 3.87 L D Hgb 11.7 L D Hct 33.7 L MCV 87.1 MCH 30.2 MCHC 34.7 RDW 15.7 Plt Count 141 L D MPV 11.7 Immature Gran % (Auto) Cancelled Neut % (Auto) Cancelled Lymph % (Auto) Cancelled [place] % (Auto) Cancelled Eos % (Auto) Cancelled Baso % (Auto) Cancelled Lymph # (Auto) Cancelled [place] # (Auto) Cancelled Eos # (Auto) Cancelled Baso # (Auto) Cancelled Abs Immat Gran (auto) Cancelled Absolute Neuts (auto) Cancelled Absolute Nucleated RBC 0.040 H Nucleated RBC % (auto) 0.5 H Neutrophils % (Manual) 50 Band Neutrophils % 35 H Lymphocytes % (Manual) 9 L Atypical Lymphs % (Man) Monocytes % (Manual) 3 Metamyelocytes % 3 Myelocytes % Abs Neuts (Manual) 6.9 Lymphocytes # (Manual) 0.7 L Atyp Lymphs # (Manual) Monocytes # (Manual) 0.2 Metamyelocytes # 0.2 Myelocytes # Toxic Granulation PRESENT Toxic Vacuolation PRESENT Platelet Estimate SLIGHTLY DECREASED Plt Morphology Comment NORMAL RBC Morphology NOTED Macrocytosis 1+ (5-14) Ovalocytes 1+ (5-14) Leroy Cells 2+ (3-5) Acanthocytes (Spur) 1+ (0-2) VBG pH VBG pCO2 VBG pO2 VBG HCO3 VBG O2 Saturation VBG Base Excess Sodium 144 Potassium 2.6 L D Chloride 110 H Carbon Dioxide 21 L Anion Gap 16 BUN 9 Creatinine 0.59 Estim Creat Clear Calc 56.2 Estimated GFR > 60 POC Glucose 228 H 231 H Random Glucose 241 H Calcium 7.8 L Phosphorus 2.3 L Magnesium 1.7 Total Bilirubin AST ALT Alkaline Phosphatase Total Protein Albumin 2.7 L 04/18/23 04/18/23 04/18/23 04:52 05:09 06:10 WBC RBC Hgb Hct MCV MCH MCHC RDW Plt Count MPV Immature Gran % (Auto) Neut % (Auto) Lymph % (Auto) [place] % (Auto) Eos % (Auto) Baso % (Auto) Lymph # (Auto) [place] # (Auto) Eos # (Auto) Baso # (Auto) Abs Immat Gran (auto) Absolute Neuts (auto) Absolute Nucleated RBC Nucleated RBC % (auto) Neutrophils % (Manual) Band Neutrophils % Lymphocytes % (Manual) Atypical Lymphs % (Man) Monocytes % (Manual) Metamyelocytes % Myelocytes % Abs Neuts (Manual) Lymphocytes # (Manual) Atyp Lymphs # (Manual) Monocytes # (Manual) Metamyelocytes # Myelocytes # Toxic Granulation Toxic Vacuolation Platelet Estimate Plt Morphology Comment RBC Morphology Macrocytosis Ovalocytes Jay Cells Acanthocytes (Spur) VBG pH 7.49 H VBG pCO2 28 VBG pO2 42 VBG HCO3 22 VBG O2 Saturation 73.0 VBG Base Excess 0.3 Sodium Potassium Chloride Carbon Dioxide Anion Gap BUN Creatinine Estim Creat Clear Calc Estimated GFR POC Glucose 233 H 240 H Random Glucose Calcium Phosphorus Magnesium Total Bilirubin AST ALT Alkaline Phosphatase Total Protein Albumin 04/18/23 10:04 WBC RBC Hgb Hct MCV MCH MCHC RDW Plt Count MPV Immature Gran % (Auto) Neut % (Auto) Lymph % (Auto) [place] % (Auto) Eos % (Auto) Baso % (Auto) Lymph # (Auto) [place] # (Auto) Eos # (Auto) Baso # (Auto) Abs Immat Gran (auto) Absolute Neuts (auto) Absolute Nucleated RBC Nucleated RBC % (auto) Neutrophils % (Manual) Band Neutrophils % Lymphocytes % (Manual) Atypical Lymphs % (Man) Monocytes % (Manual) Metamyelocytes % Myelocytes % Abs Neuts (Manual) Lymphocytes # (Manual) Atyp Lymphs # (Manual) Monocytes # (Manual) Metamyelocytes # Myelocytes # Toxic Granulation Toxic Vacuolation Platelet Estimate Plt Morphology Comment RBC Morphology Macrocytosis Ovalocytes Jay Cells Acanthocytes (Spur) VBG pH VBG pCO2 VBG pO2 VBG HCO3 VBG O2 Saturation VBG Base Excess Sodium Potassium Chloride Carbon Dioxide Anion Gap BUN Creatinine Estim Creat Clear Calc Estimated GFR POC Glucose 260 H Random Glucose Calcium Phosphorus Magnesium Total Bilirubin AST ALT Alkaline Phosphatase Total Protein Albumin Microbiology Microbiology Results: Microbiology 04/16/23 16:00 Blood - Venous Blood Culture - Preliminary No growth after 24 hours. 04/16/23 14:50 Blood - Venous Blood Culture - Preliminary No growth after 24 hours. Progress Note: A&P Assessment and plan (1) Diabetic ketoacidosis: Status: Acute (2) DAPHNIE (acute kidney injury): Status: Acute Plan Assessment: 77-year-old lady admitted with diabetic ketoacidosis requiring insulin drip Plan: Neuro: Confusion, ?PRES vs CVA. Neurology evaluation requested. Not a candidate for thrombolytics. Cardiac: No acute issues. Pulmonary: No acute issues. Renal: Acute kidney injury secondary to diabetic ketoacidosis improving. Non oliguric. Continue to monitor renal indices and urine output. Endo: Diabetic ketoacidosis, resolved. Titrated off insulin drip. GI: No acute issues. ID: No acute issues Heme/Onc: No acute issues. Psych: No acute issues. Miscellaneous: No acute issues. Prophylaxis: Heparin Diet: Pending swallow evaluation Quality Stroke Does the patient have a stroke diagnosis?: No VTE Prior VTE?: No VTE Risk Level:: Medical - moderate - high VTE Device Contraindication: N/A - Device Ordered VTE Drug Contraindication: N/A - Med Ordered
--- NOTE | 2023-04-18 10:10 | MHC.CM.PN ---
CM met w/son and pt to review d/c plan. Pt has been living w/son since 03/16. He has rented DME and privately hired FOREIGN EXCHANGE TRADER's to care for pt however, her care needs have presently exceeded what he is capable of. Discussed STR placement at [facility] contracted facilities: Pt non communicative at this time and son gives permission for broad STR search. Pt will need PT eval once medically stable. Referrals made: CM to follow and will locate HCP
--- NOTE | 2023-04-18 10:28 | P.CDIM_ITS ---
PROVIDER RESPONSE TEXT: To clarify, the appropriate diagnosis supported by the clinical indicators: Pressure (decubitus) injury Stage II left buttock QUERY TEXT: PHYSICIAN'S DOCUMENTATION REQUEST Date of Query: 04/18/2023 10:20 AM EST Patient Name: Elzbieta Gilmore Admit Date: 04/17/2023 Dear Butch Stiles, A review of the medical record indicates additional documentation may be needed. Please review below and update the documentation accordingly. Clinical Indicators: Clinical nutrition note 04/17/23 - Stage 2 pressure injury left buttock Adding Ensure BID to promote wound healing. Open to air. Wound care nursing notes: Pressure injury Stage 2 left buttock/open to air Based on the above, could you please provide further information regarding the ulcer/wound/injury: Pressure (decubitus) injury Stage II left buttock Other Other (explain) Clinically unable to determine (explain) Thank you, Kandace King, CCS, CDIS Use of terms such as suspected, likely, concern for, or probable (associated with a specific diagnosi s that is being evaluated, monitored, or treated as if it exists) are acceptable and can be coded in the inpatient se tting, when documented at the time of discharge. Please use your independent medical judgment in providing your response. THIS QUERY IS PART OF THE PERMANENT MEDICAL RECORD
[2023-04-18] MEDS: Insulin Lispro 100 UNIT/ML 3 ML VIAL SUBCUT ×3 (10:30→21:10)
[2023-04-18] MEDS: Dextrose 5 % and Lactated Ring 1,000 ML 50 ML IVCONT (10:32)
--- NOTE | 2023-04-18 11:32 | PC.NURSE ---
per [facility] policy has beed downgraded and qualifies for off monitor testing via policy C3.164. cleared with provider and supervisor felting aware.
[2023-04-18 11:38] LABS: Glucose, Whole Blood 235 mg/dL (60-115)
--- NOTE | 2023-04-18 13:41 | MHC.SLORD ---
Speech Language Pathology Order Status: HEAD WAITER/WAITRESS in to see Pt after transfer from the ICU. Pt is fast asleep and not waking to verbal or tactile stimuli. Per RN, she has not eaten much since admission d/t lethargy. HEAD WAITER/WAITRESS will re-attempt tomorrow.
--- NOTE | 2023-04-18 14:02 | HO.WOUND ---
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 Turn and Reposition every 2 hours and as needed for patient comfort. Use of wedges and pillows to support off loading positions. Wedges provided at bedside. 2. Off Load all bony prominences with use of pillows and continue heel boot to left heel.? Apply Preventative foams where needed - right foot. ? 3. Monitor for incontinence and moisture control, use barrier creams when needed for prevention and treatment. Triad applied. 4. Provide adequate and supplemental nutrition. 5. Order low air loss mattress. 6. Maintain blood glucose levels per Providers orders. 7. Left heel - Off Load Pressure - Elevate heel off of bedsurface with heel boot protector. Assess Qshift. 8. Right heel - Off Load Pressure - Protect from friction with foam dressing application - peel back and assess Q shift and change every 3 days and PRN. 9. Perineal, Intergluteal, Buttocks and Left Ischium - Off Load Pressure - Cleanse with PH balance spray or wipes, pat dry. ?Apply thin layer of Triad to wound bed - only pat and dab no scrub and rub when soiling occurs. Reapply thin layer PRN after each episode of incontinence. May cover Left Ischium with foam dressing if less liquid incontinence. 10. Bilateral Breast Folds - Cleanse with PH balance wipes, pat dry with soft cloth.? Apply antifungal power to assist with moisture management.? Be sure to dust of excess powder to prevent caking on skin and in folds. Apply per provider orders. Original Note: Wound Consult: Initial 77yr old female admitted to [facility] [place] on?04/16/23 20:16 - See progress notes and H&P for detailed history. Wound consult placed for Coccyx, Left buttock and left heel - arrival to bedside pt was post procedure - she did not open her eyes when asked - she called out with repositions. New arrival to unit. Left Ischium / Buttocks Etiology: ??Unstageable Pressure Injury Present on Admission Measurements: 1cm x 0.5cm x 0.2cm Wound Bed: adherent yellow dry slough Drainage / Odor: None noted Edges: Irregular and rolled ? Jennifer wound: MASD-IAD (Moisture Associated Skin Damage - Incontinence Associated Dermatitis) - red blanchable erythema with scattered denuded areas - No Induration, Fluctuance or Warmth noted Pain: pt reports pain Goals of Treatment: Off Load Pressure - Triad for autolytic debridement Buttocks / Perianal/ Pernineal Etiology: ??MASD-IAD (Moisture Associated Skin Damage - Incontinence Associated Dermatitis) Wound Bed: red blanchable erythema with scattered denuded areas Drainage / Odor: None noted Edges: mirrored edges Jennifer wound: No Induration, Fluctuance or Warmth noted Pain: pt reports pain Goals of Treatment: Off Load Pressure - Triad for moist wound healing and to protect from moisture and friction Left Heel Etiology: ??Deep Tissue Injury Present on Admission Measurements: 1cm x 1cm x 0cm Wound Bed: red dark purple intact tissue remains non blanchable in areas Drainage / Odor: None noted Edges: Irregular ? Jennifer wound: Periwound is noted for cool light purple pigmented tissue - remains blanchable throughout - edema noted Pain: no pain reported Goals of Treatment: Off Load Pressure - Continue heel boot Right heel is intact but also has light purple blanchable cool foot with edema - off load pressure - foam dressing and off loading applied. Recommendations: 1. Turn and Reposition every 2 hours and as needed for patient comfort. Use of wedges and pillows to support off loading positions. Wedges provided at bedside. 2. Off Load all bony prominences with use of pillows and continue heel boot to left heel.? Apply Preventative foams where needed - right foot. ? 3. Monitor for incontinence and moisture control, use barrier creams when needed for prevention and treatment. Triad applied. 4. Provide adequate and supplemental nutrition. 5. Order low air loss mattress. 6. Maintain blood glucose levels per Providers orders. 7. Left heel - Off Load Pressure - Elevate heel off of bedsurface with heel boot protector. Assess Qshift. 8. Right heel - Off Load Pressure - Protect from friction with foam dressing application - peel back and assess Q shift and change every 3 days and PRN. 9. Perineal, Intergluteal, Buttocks and Left Ischium - Off Load Pressure - Cleanse with PH balance spray or wipes, pat dry. ?Apply thin layer of Triad to wound bed - only pat and dab no scrub and rub when soiling occurs. Reapply thin layer PRN after each episode of incontinence. May cover Left Ischium with foam dressing if less liquid incontinence. Re-consult wound care Nurse for wound deterioration or wound changes.
--- NOTE | 2023-04-18 15:09 | PC.NURSE ---
Assumed care of patient at this time
[2023-04-18 17:38] LABS: Glucose, Whole Blood 275 mg/dL (60-115)
[2023-04-18 20:17] LABS: Glucose, Whole Blood 218 mg/dL (60-115)
[2023-04-18] MEDS: Nystatin Powder 15 GM BOTTLE 1 APPL TOPICAL (21:12)
[2023-04-19] MEDS: Albumin Human 25 % 100 ML IV (00:12)
[2023-04-19 03:11] VITALS: BP 129/62; PULSE 118; RESP 20; TEMP 37.2; O2SAT 99
[2023-04-19 05:23] LABS: Glucose, Whole Blood 155 mg/dL (60-115)
[2023-04-19] MEDS: Levothyroxine Sodium 50 MCG TABLET PO (05:41)
[2023-04-19] MEDS: Insulin Lispro 100 UNIT/ML 3 ML VIAL SUBCUT (05:41)
[2023-04-19 07:18] LABS: Glucose, Whole Blood 140 mg/dL (60-115)
[2023-04-19 07:34] VITALS: BP 148/67; PULSE 126; RESP 20; TEMP 36.8; O2SAT 98
[2023-04-19 07:41] LABS: Hematocrit 25.5 % (37.0-47.0); Mean Corpuscular HGB Conc 35.3 g/dl (31.0-35.0); Mean Corpuscular Hemoglobin 30.6 pg (27.0-33.0); Mean Corpuscular Volume 86.7 fL (80.0-98.0); NRBC Pct Auto 0.4 /100WBC (0.0-0.2); Platelet Count 114 X10*3/uL (160-400); Red Blood Count 2.94 X10*6/uL (4.20-5.50); Red Cell Distribution Width 16.4 % (11.0-16.0)
[2023-04-19 07:43] LABS: WBC ABN SCTR FOR CBC 1
[2023-04-19 07:44] LABS: VBG Base Excess 7.6 mmol/L; VBG HCO3 28 mmol/L (22-26); VBG pCO2 27 mmHg; VBG pH 7.62 (7.32-7.43); VBG pO2 82 mmHg
[2023-04-19 07:48] LABS: Venous Blood Gas Refer to POC result
[2023-04-19] MEDS: Dextrose 5 % and Lactated Ring 1,000 ML 50 ML IVCONT (08:04)
[2023-04-19] MEDS: Insulin Glargine,Hum.rec.anlog 100 UNIT/ML 10 ML VIAL 10 UNIT SUBCUT (08:04)
[2023-04-19] MEDS: Nystatin Powder 15 GM BOTTLE 1 APPL TOPICAL ×2 (08:08→22:29)
[2023-04-19 08:27] LABS: Albumin Level 3.9 g/dL (3.5-5.0); Anion Gap 13 (12-20); Blood Urea Nitrogen 8 mg/dL (9-16); Calcium 8.4 mg/dL (8.4-10.2); Carbon Dioxide 26 mmol/L (22-29); Chloride 109 mmol/L (96-108); Creatinine Clr Calc Pharmacy 59.2; Estimated Glomerular Filt Rate > 60; Glucose Random 135 mg/dL (60-115); Magnesium 1.5 mg/dL (1.6-2.6); Phosphorus 1.5 mg/dL (2.7-4.5); Potassium 2.5 mmol/L (3.3-5.1); Sodium 145 mmol/L (135-145)
[2023-04-19 08:33] LABS: Band Neutrophils Percent 19 % (3-5); Eosinophils Percent Manual 1 % (0-4); Lymphocytes Percent Manual 19 % (20-40); Metamyelocytes Percent 2 %; Monocytes Percent Manual 1 % (2-11); Neutrophils Percent Manual 58 % (45-73)
[2023-04-19 08:34] LABS: Acanthocytes 1+ (0-2) /OIF; Ovalocytes 1+ (5-14) /OIF; RBC Morphology NOTED
[2023-04-19 08:35] LABS: Burr Cells 2+ (3-5) /OIF
[2023-04-19 08:36] LABS: Dohle Bodies PRESENT; Hypochromasia 1+ (5-14) /OIF; Platelet Estimate DECREASED (NORMAL); Platelet Morphology Comment NORMAL
[2023-04-19 08:37] LABS: Eosinophils Absolute Manual 0.1 X10*3/uL (0.0-0.4); Lymphocytes Absolute Manual 1.6 X10*3/uL (1.2-4.9); Metamyelocytes Absolute 0.2 X10*3/uL; Monocytes Absolute Manual 0.1 X10*3/uL (0.1-1.2); Neutrophils Absolute Manual 6.5 X10*3/uL (2.0-8.3); White Blood Count 8.4 X10*3/uL (4.8-10.8)
[2023-04-19 11:30] VITALS: BP 127/57; PULSE 105; RESP 20; TEMP 36.9; O2SAT 98
--- NOTE | 2023-04-19 11:30 | MHC.SL.SWA ---
Risk of Aspiration Due to: Lethargy Reduced Cognition Weak Cough Weak Voice Dysphasia Diet Status: DOWNGRADE to NPO Liquid Consistency and Strategies for Safe Swallow: Liquid Intake Recommendation: NPO Solid Food Consistency: Dietary Recommendations: NPO Oral Medication Intake: NPO Supervision While Eating and Drinking for Safe Swallow: PO with CHILD SUPPORT OFFICER Swallowing Recommended Treatments: Compens. Strategy Educat. Recommendation for Speech: Further Testing Needed Inpatient Speech Therapy Comment: Recommend strict NPO pending re-evaluation w/CHILD SUPPORT OFFICER tomorrow. Water via swab and ice chips NOT recommended d/t inconsistent swallow response. Strict oral care recommended for w/ administration of oral moisturizer for comfort and hygiene. Metal[employer] Field Operation Clinican/Clinical Fellow: No Supervisory Statement: I have reviewed and agree with the student/clinical fellow's documentation: N/A Speech Language Pathologist: Dawna Cortez M.A.,CCC-CHILD SUPPORT OFFICER
--- NOTE | 2023-04-19 13:44 | MHC.CLN ---
F/U PT IS NOW NPO PER HEALTHCARE CONSULTING MANAGER PT WITH POOR PO PLASTIC PANEL INSTALLER WITH INCREASED NUTRITION RISK R/T PRESSURE INJURIES RECOMMEND PPN FOR NUTRITION SUPPORT: PPN AT 30ML/HR TO PROVIDE 367KCALS, 72G DEXTROSE, 31G PROTEIN REPLETE LYTES NEEDED PT MAY BE AT RISK FOR RE-FEEDING -MONITOR K+, MG, PHOS FOLLOWING WITH TEAM
--- NOTE | 2023-04-19 15:22 | HO.PM.IMPN ---
Subjective Subjective Date of Service: 04/19/23 Interval History: More alert this a.m. however more congested. Review of Systems Unable to obtain Physical Exam Vital Signs: Vital Signs: Last Vital Signs Temp 98.4 F 04/19/23 11:30 Pulse 105 H 04/19/23 11:30 Resp 20 04/19/23 11:30 BP 127/57 L 04/19/23 11:30 Pulse Ox 98 04/19/23 11:30 O2 Del Method Room Air 04/19/23 11:30 O2 Flow Rate 5 04/16/23 20:01 BMI result Body Mass Index 21.1 Const: Other: Awake; will respond with simple answers appropriately Resp: Other: Coarse rhonchi all dudley; cough week Cardio: Other: No S4; positive S1-S2; no S3 murmurs rubs or gallops GI: Other: Soft nontender nondistended normoactive bowel sounds Extrem: Other: No edema bilaterally Objective Data Active Medications Heparin Sodium (Porcine) (Heparin Sodium,Porcine 5,000 Unit/Ml Vial) 5,000 unit SUBCUT Q12H [facility] Last Admin: 04/19/23 08:05 Dose: Not Given Documented By: RENU Non-Admin Reason: excessive bruising Dextrose/Lactated Ringer's (D5lr) 1,000 mls @ 50 mls/hr IVCONT .Q20H [facility] Last Admin: 04/19/23 08:04 Dose: 50 mls/hr Documented By: RENU Potassium Phosphate (Kphos) 15 mmol in 250 mls @ 62.5 mls/hr IV Q4H [facility] Stop: 04/20/23 00:44 Last Admin: 04/19/23 10:43 Dose: 62.5 mls/hr Documented By: RENU Insulin Glargine (Insulin Glargine,Hum.Rec.Anlog 100 Unit/Ml 10 Ml Vial) 10 unit SUBCUT DAILY [facility] Last Admin: 04/19/23 08:04 Dose: 10 unit Documented By: RENU Insulin Human Lispro (Insulin Lispro 100 Unit/Ml 3 Ml Vial) 0 unit SUBCUT Q6H [facility]; Protocol Last Admin: 04/19/23 11:08 Dose: Not Given Documented By: RENU Non-Admin Reason: does not need \ Levothyroxine Sodium (Levothyroxine Sodium 50 Mcg Tablet) 50 mcg PO DAILY@0600 [facility] Last Admin: 04/19/23 05:41 Dose: 50 mcg Documented By: DAVID Nystatin (Nystatin Powder 15 Gm Bottle) 1 appl TOPICAL BID [facility]; Protocol Last Admin: 04/19/23 08:08 Dose: 1 appl Documented By: RENU Labs 04/19/23 07:22 04/19/23 07:22 Labs: Laboratory Results - last 24 hr 04/18/23 04/18/23 04/19/23 17:17 20:14 05:20 MCV MCH MCHC RDW Plt Count MPV Immature Gran % (Auto) Neut % (Auto) Lymph % (Auto) [place] % (Auto) Eos % (Auto) Baso % (Auto) Lymph # (Auto) [place] # (Auto) Eos # (Auto) Baso # (Auto) Abs Immat Gran (auto) Absolute Neuts (auto) Absolute Nucleated RBC Nucleated RBC % (auto) Neutrophils % (Manual) Band Neutrophils % Lymphocytes % (Manual) Monocytes % (Manual) Eosinophils % (Manual) Metamyelocytes % Abs Neuts (Manual) Lymphocytes # (Manual) Monocytes # (Manual) Eosinophils # (Manual) Metamyelocytes # Dohle Bodies Platelet Estimate Plt Morphology Comment RBC Morphology Hypochromasia Ovalocytes Hull Cells Acanthocytes (Spur) VBG pH VBG pCO2 VBG pO2 VBG HCO3 VBG O2 Saturation VBG Base Excess Anion Gap Estim Creat Clear Calc Estimated GFR POC Glucose 275 H 218 H 155 H Random Glucose Calcium Phosphorus Magnesium Albumin Influenza Type A (PCR) Influenza Type B (PCR) RSV RNA Qual (PCR) SARS-CoV-2 RNA (RT-PCR) 04/19/23 04/19/23 04/19/23 07:14 07:22 07:31 MCV 86.7 MCH 30.6 MCHC 35.3 H RDW 16.4 H Plt Count 114 L MPV 11.0 Immature Gran % (Auto) Cancelled Neut % (Auto) Cancelled Lymph % (Auto) Cancelled [place] % (Auto) Cancelled Eos % (Auto) Cancelled Baso % (Auto) Cancelled Lymph # (Auto) Cancelled [place] # (Auto) Cancelled Eos # (Auto) Cancelled Baso # (Auto) Cancelled Abs Immat Gran (auto) Cancelled Absolute Neuts (auto) Cancelled Absolute Nucleated RBC 0.030 H Nucleated RBC % (auto) 0.4 H Neutrophils % (Manual) 58 Band Neutrophils % 19 H Lymphocytes % (Manual) 19 L Monocytes % (Manual) 1 L Eosinophils % (Manual) 1 Metamyelocytes % 2 Abs Neuts (Manual) 6.5 Lymphocytes # (Manual) 1.6 Monocytes # (Manual) 0.1 Eosinophils # (Manual) 0.1 Metamyelocytes # 0.2 Dohle Bodies PRESENT Platelet Estimate DECREASED Plt Morphology Comment NORMAL RBC Morphology NOTED Hypochromasia 1+ (5-14) Ovalocytes 1+ (5-14) Jay Cells 2+ (3-5) Acanthocytes (Spur) 1+ (0-2) VBG pH 7.62 H* VBG pCO2 27 VBG pO2 82 VBG HCO3 28 H VBG O2 Saturation 99.0 VBG Base Excess 7.6 Anion Gap 13 Estim Creat Clear Calc 59.2 Estimated GFR > 60 POC Glucose 140 H Random Glucose 135 H Calcium 8.4 D Phosphorus 1.5 L Magnesium 1.5 L Albumin 3.9 Influenza Type A (PCR) Influenza Type B (PCR) RSV RNA Qual (PCR) SARS-CoV-2 RNA (RT-PCR) 04/19/23 04/19/23 11:07 11:32 MCV MCH MCHC RDW Plt Count MPV Immature Gran % (Auto) Neut % (Auto) Lymph % (Auto) [place] % (Auto) Eos % (Auto) Baso % (Auto) Lymph # (Auto) [place] # (Auto) Eos # (Auto) Baso # (Auto) Abs Immat Gran (auto) Absolute Neuts (auto) Absolute Nucleated RBC Nucleated RBC % (auto) Neutrophils % (Manual) Band Neutrophils % Lymphocytes % (Manual) Monocytes % (Manual) Eosinophils % (Manual) Metamyelocytes % Abs Neuts (Manual) Lymphocytes # (Manual) Monocytes # (Manual) Eosinophils # (Manual) Metamyelocytes # Dohle Bodies Platelet Estimate Plt Morphology Comment RBC Morphology Hypochromasia Ovalocytes Hull Cells Acanthocytes (Spur) VBG pH VBG pCO2 VBG pO2 VBG HCO3 VBG O2 Saturation VBG Base Excess Anion Gap Estim Creat Clear Calc Estimated GFR POC Glucose 120 H Random Glucose Calcium Phosphorus Magnesium Albumin Influenza Type A (PCR) NEGATIVE Influenza Type B (PCR) NEGATIVE RSV RNA Qual (PCR) NEGATIVE SARS-CoV-2 RNA (RT-PCR) POSITIVE A Microbiology Microbiology Results: Microbiology 04/16/23 16:00 Blood Culture - Preliminary Blood - Venous No growth after 48 hours. 04/16/23 14:50 Blood Culture - Preliminary Blood - Venous No growth after 48 hours. Assessment and Plan (1) COVID-19: Status: Acute (2) UTI (urinary tract infection): Status: Acute Plan 77-year-old female with history of hypothyroidism, hypertension, hyperlipidemia, diabetes presented to the emergency room for evaluation of hyperglycemia with sugars in the 500s. Patient required an insulin drip and was transferred to ICU. Insulin drip subsequently DC 'd and transferred to the floor. Initially was minimally responsive but this a.m. is more alert however more congested. COVID swab was done which tested positive. 1. COVID-19 infection New positive without hypoxia. Discussed with ID... Will give 3 days of remdesivir prophylactically. Will hold on steroids in absence of hypoxemia -remdesivir x3 days -follow O2 sats 2. Diabetes 2 requiring insulin Sugars have been stable since discharge from the ICU. Patient is now NPO secondary to failed swallow eval . -acceptable control -lispro correctional scale -continue basal insulin -adjust as indicated 3. Klebsiella UTI Culture ultimately grew out Klebsiella sensitive to ceftriaxone. Will continue same -ceftriaxone(2) -await final cultures 4. Dysphasia Failed bedside swallow; now NPO. Will need TPN at least short term -order placed for PICC line in a.m. -PPN until placed Full code Lovenox Patient requires ongoing hospitalization for IV antibiotics to treat UTI and parental nutrition pending response to therapies Quality Stroke Does the patient have a stroke diagnosis?: No VTE Prior VTE?: No VTE Risk Level:: Medical - moderate - high VTE Device Contraindication: N/A - Device Ordered VTE Drug Contraindication: N/A - Med Ordered
[2023-04-19 16:00] VITALS: BP 127/60; PULSE 95; RESP 19; TEMP 36.5; O2SAT 97
--- NOTE | 2023-04-19 17:15 | HO.PICC ---
PICC Line Insertion NPICC Diagnosis: dysphagia/failed swallow eval Indication: TPN Pertinent Labs: Reviewed Technique: Following informed consent including risks, benefits and alternatives and using sterile technique including cap and mask, sterile gown, glove and drape, the right arm was prepped and draped in the usual sterile fashion of full barrier technique with CHG. Following completion of [place] Protocol the skin and soft tissues were anesthetized with 1% Lidocaine plain. Using ultrasound guidance, right basilic vein access was obtained. Over an 0.018 wire through peel-away sheath, a Bard double lumen PowerPICC PASV PICC line was positioned. Catheter length is 36cm internal length, 0cm external length, for a total trimmed length of 36cm. The procedure was performed in [facility]. Tip verification was performed by Suresh Shook with Sherlock 3CG. Tip located in SVC. Ultrasound was used to document vein patency and for needle entry. A formal ultrasound picture and cardiac rhythm strip was recorded. Vascular Level Vial Grinder has released the line for use and it is currently dressed with a StatLock, Tegaderm, and CHG disc. Verification has been performed for blood return and line patency. Arm Circumference: 28cm Equipment: Bard PowerPICC SOLOcatheter with sherlock 3CG Catheter Type: 5FR double lumen PASV PICC catheter Lot #: [id number]
[2023-04-19 20:00] VITALS: BP 131/60; PULSE 111; RESP 20; TEMP 36.6; O2SAT 97
[2023-04-19] MEDS: Heparin Sodium,Porcine 5,000 UNIT/ML VIAL 5000 UNIT SUBCUT (22:29)
[2023-04-19 23:11] VITALS: BP 131/59; PULSE 122; RESP 17; TEMP 37.2; O2SAT 93
[2023-04-20 03:38] VITALS: BP 113/55; PULSE 107; RESP 16; TEMP 36.5; O2SAT 96
[2023-04-20 03:47] LABS: Glucose, Whole Blood 178 mg/dL (60-115)
[2023-04-20] MEDS: Insulin Lispro 100 UNIT/ML 3 ML VIAL SUBCUT (04:06)
[2023-04-20 07:44] VITALS: BP 128/60; PULSE 103; RESP 20; TEMP 36.8; O2SAT 100
[2023-04-20 08:08] LABS: Alanine Aminotransferase 51 U/L (0-31); Albumin Level 3.3 g/dL (3.5-5.0); Alkaline Phosphatase 72 U/L (39-117); Anion Gap 17 (12-20); Aspartate Amino Transferase 21 U/L (5-31); Bilirubin Total 1.2 mg/dL (0.0-1.0); Blood Urea Nitrogen 9 mg/dL (9-16); Calcium 7.8 mg/dL (8.4-10.2); Carbon Dioxide 23 mmol/L (22-29); Chloride 107 mmol/L (96-108); Creatinine Clr Calc Pharmacy 62.5; Estimated Glomerular Filt Rate > 60; Glucose Random 170 mg/dL (60-115); Potassium 3.3 mmol/L (3.3-5.1); Sodium 144 mmol/L (135-145); Total Protein 4.8 g/dL (6.5-8.0)
[2023-04-20] MEDS: Heparin Sodium,Porcine 5,000 UNIT/ML VIAL 5000 UNIT SUBCUT ×2 (09:42→19:40)
[2023-04-20] MEDS: Nystatin Powder 15 GM BOTTLE 1 APPL TOPICAL ×2 (09:43→19:41)
[2023-04-20 10:45] VITALS: BMI 21.1
--- NOTE | 2023-04-20 10:48 | MHC.CLN ---
PT TO START TPN FOR NUTRITION SUPPORT RETAIL MARKETING MANAGER RECOMMENDED NPO R/T DYSPHAGIA PT WITH INCREASED NUTRITION RISK R/T PRESSURE INJURIES REVIEWED LABS DISCUSSED WITH PHARMACY AND MD RECOMMEND TPN AT 30ML/HR TO PROVIDE 511KCALS, 36G PROTEIN, 108G DEXTROSE REPLETE LYTES NEEDED SEE ALSO FULL CLINICAL NUTRITION ASSESSMENT
[2023-04-20 11:30] VITALS: BP 116/63; PULSE 99; RESP 20; TEMP 36.7; O2SAT 96
--- NOTE | 2023-04-20 12:46 | HO.PM.IMPN ---
Subjective Subjective Date of Service: 04/20/23 Interval History: Markedly improved this a.m.. Passed swallow evaluation. Diet modify Review of Systems Unable to obtain Physical Exam Vital Signs: Vital Signs: Last Vital Signs Temp 98.0 F 04/20/23 11:30 Pulse 99 04/20/23 11:30 Resp 20 04/20/23 11:30 BP 116/63 04/20/23 11:30 Pulse Ox 96 04/20/23 11:30 O2 Del Method Room Air 04/20/23 11:30 O2 Flow Rate 5 04/16/23 20:01 BMI result Body Mass Index 21.1 Const: Other: Awake; will respond with simple answers appropriately Resp: Other: Coarse rhonchi all dudley; cough week Cardio: Other: No S4; positive S1-S2; no S3 murmurs rubs or gallops GI: Other: Soft nontender nondistended normoactive bowel sounds Extrem: Other: No edema bilaterally Objective Data Active Medications Heparin Sodium (Porcine) 50 (units/ Sodium Chloride 5 ml) 0 units IVFLUSH TID [facility] Last Admin: 04/20/23 09:43 Dose: 5 unit Documented By: LYLA Dextrose (Dextrose 50 % 25 Gm/50 Ml Syringe) 25 gm IVPUSH Q15M PRN; Protocol PRN Reason: per Hypoglycemia Standing Ord. Glucose (Glucose Gel 15 Gm Gel..Gram.) 15 gm PO Q15M PRN; Protocol PRN Reason: per Hypoglycemia Standing Ord. Heparin Sodium (Porcine) (Heparin Sodium,Porcine 5,000 Unit/Ml Vial) 5,000 unit SUBCUT Q12H [facility] Last Admin: 04/20/23 09:42 Dose: 5,000 unit Documented By: LYLA Nutrition (Parenteral) (Parenteral Nutrition) 720 mls @ 30 mls/hr IV .Q24H [facility]; Protocol Stop: 04/21/23 20:59 Insulin Glargine (Insulin Glargine,Hum.Rec.Anlog 100 Unit/Ml 10 Ml Vial) 10 unit SUBCUT DAILY [facility] Last Admin: 04/20/23 09:43 Dose: 10 unit Documented By: LYLA Insulin Human Lispro (Insulin Lispro 100 Unit/Ml 3 Ml Vial) 0 unit SUBCUT QIDACHS [facility]; Protocol Levothyroxine Sodium (Levothyroxine Sodium 50 Mcg Tablet) 50 mcg PO DAILY@0600 [facility] Last Admin: 04/20/23 03:02 Dose: Not Given Documented By: MIKE Non-Admin Reason: NPO Nystatin (Nystatin Powder 15 Gm Bottle) 1 appl TOPICAL BID [facility]; Protocol Last Admin: 04/20/23 09:43 Dose: 1 appl Documented By: LYLA Pharmacy Consult (Consult Rx Parenteral Nutrition Ordering) 1 each MISCELLANE DAILY PRN PRN Reason: Consult order Labs 04/19/23 07:22 04/20/23 07:37 Labs: Laboratory Results - last 24 hr 04/19/23 04/19/23 04/19/23 11:32 17:00 20:34 Anion Gap Estim Creat Clear Calc Estimated GFR POC Glucose 65 91 Random Glucose Calcium Phosphorus Magnesium Total Bilirubin AST ALT Alkaline Phosphatase Total Protein Albumin Triglycerides Influenza Type A (PCR) NEGATIVE Influenza Type B (PCR) NEGATIVE RSV RNA Qual (PCR) NEGATIVE SARS-CoV-2 RNA (RT-PCR) POSITIVE A 04/19/23 04/20/23 04/20/23 23:29 03:42 07:37 Anion Gap 17 Estim Creat Clear Calc 62.5 Estimated GFR > 60 POC Glucose 148 H 178 H 164 H Random Glucose 170 H Calcium 7.8 L D Phosphorus 4.0 Magnesium 1.9 Total Bilirubin 1.2 H AST 21 ALT 51 H Alkaline Phosphatase 72 Total Protein 4.8 L Albumin 3.3 L Triglycerides Influenza Type A (PCR) Influenza Type B (PCR) RSV RNA Qual (PCR) SARS-CoV-2 RNA (RT-PCR) 04/20/23 04/20/23 07:37 11:16 Anion Gap Estim Creat Clear Calc Estimated GFR POC Glucose 165 H Random Glucose Calcium Phosphorus Magnesium Total Bilirubin AST ALT Alkaline Phosphatase Total Protein Albumin 3.3 L Triglycerides 82 Influenza Type A (PCR) Influenza Type B (PCR) RSV RNA Qual (PCR) SARS-CoV-2 RNA (RT-PCR) Assessment and Plan (1) COVID-19: Status: Acute (2) Diabetic ketoacidosis: Status: Acute (3) UTI (urinary tract infection): Status: Acute Plan 77-year-old female with history of hypothyroidism, hypertension, hyperlipidemia, diabetes presented to the emergency room for evaluation of hyperglycemia with sugars in the 500s. Patient required an insulin drip and was transferred to ICU. Insulin drip subsequently DC 'd and transferred to the floor. Initially was minimally responsive but this a.m. is more alert however more congested. COVID swab was done which tested positive. 1. COVID-19 infection New positive without hypoxia. Discussed with ID... Will give 3 days of remdesivir prophylactically. Will hold on steroids in absence of hypoxemia -remdesivir x3 days -follow O2 sats 2. Diabetes 2 requiring insulin Sugars have been stable since discharge from the ICU. Patient has passed swallow eval. Will advance diet and put sliding scale t.i.d. a.c. and HS -acceptable control -lispro correctional scale -continue basal insulin -adjust as indicated 3. Klebsiella UTI Culture ultimately grew out Klebsiella sensitive to ceftriaxone. Will continue same -ceftriaxone(3) -await final cultures 4. Dysphasia Passed swallow this a.m.. TPN with held. PICC line placed in anticipation of need for TPN however now patient passed swallow eval. Would keep PICC in place for patient to demonstrate ongoing abilities swallow -follow clinically Full code Lovenox Patient requires ongoing hospitalization for IV antibiotics to treat UTI and parental nutrition pending response to therapies Quality Stroke Does the patient have a stroke diagnosis?: No VTE Prior VTE?: No VTE Risk Level:: Medical - moderate - high VTE Device Contraindication: N/A - Device Ordered VTE Drug Contraindication: N/A - Med Ordered
--- NOTE | 2023-04-20 14:29 | MHC.SL.SWA ---
Speech Pathologist Impression: Risk of Aspiration Due to: Lethargy Reduced Cognition Weak Cough Weak Voice Dysphasia Diet Status: Patient presents with mild oral phase dysphagia, with primary risk for aspiration secondary to confusion. Recommend UPGRADE from NPO to Ground Mechanical Altered (NDD2) for ease of mastication, cohesive texture; with THIN liquids, pills crushed in puree. Patient will require 1 to 1 feeding due to level of confusion. RACHELE DUNBAR notified of recommendation by secure text, RN in person. TURPENTINER will continue to follow. Liquid Consistency and Strategies for Safe Swallow: Liquid Intake Recommendation: Thin Liquid Intake Strategies: Small Sips Solid Food Consistency: Dietary Recommendations: Grnd/Mech Altered (NDD2) Additional Modifications to Solid Foods: Oral Medication Intake: Crushed with Puree Please contact the pharmacy regarding appropriate crushable or liquid drug formulations that are available whenever modified delivery is recommended. Compensatory Strategies and Precautions to be Taken for Safe Swallow: Sitting Upright (90 deg) Liquids from Cup Liquids from Straw Small Bites and Sips Alternate Liquids/Solids Oral Check Supervision While Eating and Drinking for Safe Swallow: Total Assistance (1:1) Foods to Avoid: Mixed consistencies, difficult to chew solids. Swallowing Recommended Treatments: Compens. Strategy Educat. Recommendation for Speech: Further Testing Needed Inpatient Speech Therapy Comment:Patient presents with mild oral phase dysphagia, with primary risk for aspiration secondary to confusion. Recommend UPGRADE from NPO to Ground Mechanical Altered (NDD2) for ease of mastication, cohesive texture; with THIN liquids, pills crushed in puree. Patient will require 1 to 1 feeding due to level of confusion. RACHELE DUNBAR notified of recommendation by secure text, RN in person. TURPENTINER will continue to follow. Frequency/Duration: Date Range for Service Req: Timeline to reassess: Air Intelligence Officer Clinican/Clinical Fellow: No Supervisory Statement: I have reviewed and agree with the student/clinical fellow's documentation: N/A Speech Language Pathologist: Belgica Christianson M.A., [facility]-TURPENTINER
[2023-04-20 15:16] VITALS: BP 108/72; PULSE 112; RESP 17; TEMP 37; O2SAT 98
[2023-04-20 19:01] VITALS: BP 124/81; PULSE 120; RESP 18; TEMP 36.9; O2SAT 98
[2023-04-20 23:59] VITALS: BP 100/53; PULSE 83; RESP 18; TEMP 37.2; O2SAT 94
[2023-04-21] VITALS (7 sets, daily range): BP systolic 111–141; BP diastolic 52–65; PULSE 78–123; RESP 18–22; TEMP 36.6–37.8; O2SAT 92–97
[2023-04-21] MEDS: Heparin Sodium,Porcine 5,000 UNIT/ML VIAL 5000 UNIT SUBCUT ×2 (08:26→21:46)
--- NOTE | 2023-04-21 10:00 | HO.WOUND ---
Wound Consult: Follow up 77yr [place] [facility] [place]23 20[place]16 - See progress notes and H&P for detailed history. Wound consult placed for Coccyx, Left buttock and left heel - arrival to bedside pt awake and agreeable to assessment. No new photo taken today. No new topical recommendations made today. Left Ischium / Buttocks Etiology: ??Unstageable Pressure Injury Present on Admission Measurements: 1cm x 0.5cm x 0.2cm Wound Bed: adherent yellow moist slough Drainage / Odor: None noted Edges: Irregular and rolled ? Jennifer wound: MASD-IAD (Moisture Associated Skin Damage - Incontinence Associated Dermatitis) - red blanchable erythema with scattered denuded areas - No Induration, Fluctuance or Warmth noted Pain: pt reports pain Goals of Treatment: Off Load Pressure - Triad for autolytic debridement Buttocks / Perianal/ Pernineal Etiology: ??MASD-IAD (Moisture Associated Skin Damage - Incontinence Associated Dermatitis) Wound Bed: red blanchable erythema with scattered denuded areas Drainage / Odor: None noted Edges: irregular Jennifer wound: No Induration, Fluctuance or Warmth noted Pain: pt reports pain Goals of Treatment: Off Load Pressure - Triad for moist wound healing and to protect from moisture and friction Left Heel Etiology: ??Deep Tissue Injury Present on Admission Measurements: 1cm x 1cm x 0cm Wound Bed: red dark purple intact tissue remains non blanchable in areas Drainage / Odor: None noted Edges: Irregular ? Jennifer wound: Periwound is noted for cool light purple pigmented tissue - remains blanchable throughout - resolving edema noted Pain: no pain reported Goals of Treatment: Off Load Pressure - Continue heel boot Right heel is intact but also has light purple blanchable cool foot with edema - off load pressure - foam dressing and off loading applied. Topical recommendations as follows: 1. Turn and Reposition every 2 hours and as needed for patient comfort. Use of wedges and pillows to support off loading positions. Wedges provided at bedside. 2. Off Load all bony prominences with use of pillows and continue heel boot to left heel.? Apply Preventative foams where needed - right foot. ? 3. Monitor for incontinence and moisture control, use barrier creams when needed for prevention and treatment. Triad applied. 4. Provide adequate and supplemental nutrition. 5. Order low air loss mattress. 6. Maintain blood glucose levels per Providers orders. 7. Left heel - Off Load Pressure - Elevate heel off of bed surface with heel boot protector. Assess Qshift. 8. Right heel - Off Load Pressure - Protect from friction with foam dressing application - peel back and assess Q shift and change every 3 days and PRN. 9. Perineal, Intergluteal, Buttocks and Left Ischium - Off Load Pressure - Cleanse with PH balance spray or wipes, pat dry. ?Apply thin layer of Triad to wound bed - only pat and dab no scrub and rub when soiling occurs. Reapply thin layer PRN after each episode of incontinence. May cover Left Ischium with foam dressing if less liquid incontinence. 10. Bilateral Breast Folds - Cleanse with PH balance wipes, pat dry with soft cloth.? Apply antifungal power to assist with moisture management.? Be sure to dust of excess powder to prevent caking on skin and in folds. Apply per provider orders.
--- NOTE | 2023-04-21 11:41 | MHC.CLN ---
F/U PT RECEIVED TPN AT 30ML/HR PROVIDED 511KCALS, 36G PROTEIN, 108G DEXTROSE ROASTER SUPERVISOR RECOMMENDED ADVANCING DIET TO GRD M/S DIET RX: 2000DM GRD M/S-APPROPRIATE PT WITH INCREASED NUTRITION RISK R/T PRESSURE INJURIES WILL RE-START ENSURE MAX BID NUTRITION SUPPLEMENT TO PROVIDE 300KCALS, 60G PROTEIN REVIEWED LABS DISCUSSED WITH PHARMACY RECOMMEND INCREASING TPN TO 50ML/HR TO PROVIDE 852KCALS, 60G PROTEIN, 180G DEXTROSE REPLETE LYTES NEEDED MONITOR PO INTAKE AND SUPPLEMENT ACCEPTANCE
--- NOTE | 2023-04-21 11:43 | MHC.SL.SWA ---
Speech Pathologist Impression: Oral phase dysphagia, risk of aspiration Risk of Aspiration Due to: Lethargy Reduced Cognition Weak Cough Weak Voice Dysphasia Diet Status: Patient presents with mild oral phase dysphagia, with primary risk for aspiration secondary to confusion. Recommend continue diet of Ground Mechanical Altered (NDD2) for ease of mastication, cohesive texture; with THIN liquids, pills crushed in puree. Patient will require 1 to 1 feeding due to level of confusion. SYSTEMS ENG will continue to follow. Liquid Consistency and Strategies for Safe Swallow: Liquid Intake Recommendation: Thin Liquid Intake Strategies: Small Sips Solid Food Consistency: Dietary Recommendations: Grnd/Mech Altered (NDD2) Oral Medication Intake: Crushed with Puree Please contact the pharmacy regarding appropriate crushable or liquid drug formulations that are available whenever modified delivery is recommended. Compensatory Strategies and Precautions to be Taken for Safe Swallow: Sitting Upright (90 deg) Liquids from Cup Liquids from Straw Small Bites and Sips Alternate Liquids/Solids Oral Check Supervision While Eating and Drinking for Safe Swallow: Total Assistance (1:1) Foods to Avoid: Mixed consistencies, difficult to chew solids. Swallowing Recommended Treatments: Compens. Strategy Educat. Recommendation for Speech: Inpatient Speech Therapy Land Sales Agent Clinican/Clinical Fellow: No Supervisory Statement: I have reviewed and agree with the student/clinical fellow's documentation: N/A Speech Language Pathologist: Margarette Francisco M.A., [facility]
--- NOTE | 2023-04-21 12:00 | HO.PM.IMPN ---
Subjective Subjective Date of Service: 04/22/23 Review of Systems All other system reviewed and negative Physical Exam Vital Signs: Vital Signs: Last Vital Signs Temp 98 F 04/21/23 08:00 Pulse 123 H 04/21/23 08:00 Resp 18 04/21/23 08:00 BP 138/63 04/21/23 08:00 Pulse Ox 94 04/21/23 08:00 O2 Del Method Room Air 04/21/23 08:00 O2 Flow Rate 5 04/16/23 20:01 BMI result Body Mass Index 21.1 Const: Other: General awake alert, wet cough, no acute distress. Neck supple no JVD. CVS regular rate rhythm, Respiratory lungs coarse/rhonchi, no respiratory distress, Gastrointestinal abdomen soft, non tender, bowel sounds audible, no guarding , no rigidity. Extremities no edema. Neuro speech clear. Skin no rash Objective Data Active Medications Atorvastatin Calcium (Atorvastatin Calcium 40 Mg Tablet) 40 mg PO DAILY [facility] Last Admin: 04/21/23 08:43 Dose: 40 mg Documented By: SAGAR Heparin Sodium (Porcine) 50 (units/ Sodium Chloride 5 ml) 0 units IVFLUSH TID [facility] Last Admin: 04/21/23 08:44 Dose: Not Given Documented By: SAGAR Non-Admin Reason: IV running Dextrose (Dextrose 50 % 25 Gm/50 Ml Syringe) 25 gm IVPUSH Q15M PRN; Protocol PRN Reason: per Hypoglycemia Standing Ord. Duloxetine HCl (Duloxetine Hcl 20 Mg Capsule.Dr) 20 mg PO DAILY [facility] Last Admin: 04/21/23 08:43 Dose: 20 mg Documented By: SAGAR Glucose (Glucose Gel 15 Gm Gel..Gram.) 15 gm PO Q15M PRN; Protocol PRN Reason: per Hypoglycemia Standing Ord. Guaifenesin/Dextromethorphan (Guaifenesin Dm 200/20/10 Ml 10 Ml Syrup) 10 ml PO TID [facility] Last Admin: 04/21/23 11:06 Dose: 10 ml Documented By: SAGAR Heparin Sodium (Porcine) (Heparin Sodium,Porcine 5,000 Unit/Ml Vial) 5,000 unit SUBCUT Q12H [facility] Last Admin: 04/21/23 08:26 Dose: 5,000 unit Documented By: SAGAR Nutrition (Parenteral) (Parenteral Nutrition) 720 mls @ 30 mls/hr IV .Q24H [facility]; Protocol Stop: 04/21/23 20:59 Last Admin: 04/20/23 20:41 Dose: 30 mls/hr Documented By: VICKY Potassium Chloride (Potassium Chloride/H20) 10 meq in 100 mls @ 100 mls/hr IV Q1H [facility] Stop: 04/21/23 12:44 Last Admin: 04/21/23 11:06 Dose: 100 mls/hr Documented By: SAGAR Nutrition (Parenteral) (Parenteral Nutrition) 1,200 mls @ 50 mls/hr IV .Q24H [facility]; Protocol Stop: 04/22/23 20:59 Insulin Glargine (Insulin Glargine,Hum.Rec.Anlog 100 Unit/Ml 10 Ml Vial) 10 unit SUBCUT DAILY [facility] Last Admin: 04/21/23 08:26 Dose: 10 unit Documented By: SAGAR Insulin Human Lispro (Insulin Lispro 100 Unit/Ml 3 Ml Vial) 0 unit SUBCUT QIDACHS [facility]; Protocol Last Admin: 04/21/23 08:26 Dose: 4 unit Documented By: SAGAR Levothyroxine Sodium (Levothyroxine Sodium 50 Mcg Tablet) 50 mcg PO DAILY@0600 [facility] Last Admin: 04/21/23 05:41 Dose: 50 mcg Documented By: VICKY Memantine (Memantine Hcl 10 Mg Tablet) 10 mg PO DAILY [facility] Last Admin: 04/21/23 08:43 Dose: 10 mg Documented By: SAGAR Metoprolol Succinate (Metoprolol Succinate Er 50 Mg Tab.Er.24h) 50 mg PO DAILY [facility]; Protocol Last Admin: 04/21/23 08:43 Dose: 50 mg Documented By: SAGAR Nystatin (Nystatin Powder 15 Gm Bottle) 1 appl TOPICAL BID [facility]; Protocol Last Admin: 04/21/23 08:44 Dose: 1 appl Documented By: SAGAR Pharmacy Consult (Consult Rx Parenteral Nutrition Ordering) 1 each MISCELLANE DAILY PRN PRN Reason: Consult order Labs 04/22/23 07:56 04/22/23 07:56 Labs: Laboratory Results - last 24 hr 04/20/23 04/20/23 04/21/23 15:58 19:49 08:03 Hold Purple Top Anion Gap Estim Creat Clear Calc Estimated GFR POC Glucose 172 H 88 247 H Random Glucose Calcium Phosphorus Magnesium Total Bilirubin AST ALT Alkaline Phosphatase Total Protein Albumin 04/21/23 04/21/23 08:04 11:24 Hold Purple Top SEE NOTE Anion Gap 15 Estim Creat Clear Calc 60.3 Estimated GFR > 60 POC Glucose 230 H Random Glucose 274 H Calcium 8.5 D Phosphorus 1.7 L Magnesium 1.7 Total Bilirubin 1.6 H AST 18 ALT 47 H Alkaline Phosphatase 94 Total Protein 5.1 L Albumin 3.2 L Assessment and Plan (1) COVID-19: Status: Acute (2) Diabetic ketoacidosis: Status: Acute (3) UTI (urinary tract infection): Status: Acute Plan 77-year-old female with history of hypothyroidism, hypertension, hyperlipidemia, diabetes presented to the emergency room for evaluation of hyperglycemia with sugars in the 500s. Patient required an insulin drip and was transferred to ICU. Insulin drip subsequently DC 'd and transferred to the floor. Initially was minimally responsive later became more awake alert COVID swab was done which tested positive. 1. COVID-19 infection New positive without hypoxia, supportive care, will add cough medications. 2. Diabetes 2 requiring insulin Elevated blood sugars started on Lantus at bedtime, at home was receiving glipizide 10 mg daily Continue insulin sliding scale diabetic diet and resume oral hypoglycemics 3. Klebsiella UTI Culture grew Klebsiella and E coli , Klebsiella is resistant to carbapenems, question colonization will consult ID for choice of antibiotic and duration, blood cultures negative times 48 hours on IV ceftriaxone for E coli. 4. Dysphagia seen by speech therapy noted to have mild oral phase dysphagia they recommend ground mechanical altered diet and thin liquids, pills crushed in puree and will require one-to-one feed Continue TPN due to poor by mouth intake s/p PICC follow clinically 5. Hypokalemia/hypophosphatemia : potassium 2.4 will aggressively replace potassium and phosphorous and follow labs. 6. Hypothyroidism continue Synthroid, stable TSH 7. Mood disorder/question Unspecified dementia continue Namenda and Cymbalta. 8. Hypertension/hyperlipidemia will resume metoprolol XL 50 mg, and Lipitor, will follow BP and resume Norvasc if blood pressure allows Full code Heparin subQ Patient requires ongoing hospitalization for IV antibiotics to treat UTI and parental nutrition pending response to therapies Quality Stroke Does the patient have a stroke diagnosis?: No VTE Prior VTE?: No VTE Risk Level:: Medical - moderate - high VTE Device Contraindication: N/A - Device Ordered VTE Drug Contraindication: N/A - Med Ordered
[2023-04-22 03:03] VITALS: BP 133/63; PULSE 122; RESP 18; TEMP 36.7; O2SAT 89
[2023-04-22 04:00] VITALS: BP 133/63; PULSE 122; RESP 18; TEMP 36.7; O2SAT 89
[2023-04-22 07:46] VITALS: BP 130/65; PULSE 130; RESP 18; TEMP 36.3; O2SAT 94
[2023-04-22] MEDS: Heparin Sodium,Porcine 5,000 UNIT/ML VIAL 5000 UNIT SUBCUT (08:00)
[2023-04-22 11:46] VITALS: BP 90/55; PULSE 119; RESP 16; TEMP 36.3; O2SAT 94
--- NOTE | 2023-04-22 14:00 | PM.DDS ---
Discharge Sum: Prov Provider Primary care physician: Unknown Physician Consults: 04/17/23 00:30 Consult to Wound Care Routine Reason for consultation: ?PI coccyx/gluteal fold 04/18/23 08:02 Consult to Neurology Routine Consulting Provider: [facility] [place] [facility] Reason for consultation: ?CVA Has provider been notified: No 04/21/23 08:18 Consult to Infectious Diseases Routine Consulting Provider: Donna Rascon Reason for consultation: carbopenem resistant uti Has provider been notified: No Discharge Sum: Diag Contributing Factors (1) COVID-19: (2) Diabetic ketoacidosis: (3) UTI (urinary tract infection): Discharge Sum: Summary Date and Time Date of admission: 04/16/23 20:16 Summary Details: 77-year-old female with history of hypothyroidism, hypertension, hyperlipidemia, diabetes presented to the emergency room for evaluation of hyperglycemia with sugars in the 500s. Patient required an insulin drip and was transferred to ICU. Insulin drip subsequently DC 'd and transferred to the floor. Initially was minimally responsive seen by Dr. Restrepo who felt patient has PRES related to her hyperglycemia and recommended non contrast MRA of brain to rule out occlusion of the basilar artery MRI brain did not show any abnormality of basilar artery , patient became more alert,was diagnosed to have COVID infection on April 19 at that time patient was not hypoxic, her urine culture grew E coli and Klebsiella resistant to carbapenem patient seen by infectious disease and felt to have colonization of urine with no true infection, this morning patient noted to be tachypneic ,tachycardic and hypoxic although denied symptoms of shortness of breath or chest pain , she was noted to be confused, her electrolytes were unremarkable,had low platelets,leukopenia, repeat chest x-ray consistent with COVID infection case discussed with patient's son,he requested patient to be treated conservatively due to multiple comorbidities , bed ridden status, with no heroic measures, with no resuscitation or intubation patient peacefully at 14:00 she had no pulse, no respirations pupil fixed and dilated . Cause of Acute hypoxic respiratory failure due to COVID-19 infection DKA. DAPHNIE Acute toxic metabolic encephalopathy Additional Data Attending physician: Suri Ruelas MD
--- NOTE | 2023-04-22 23:27 | W.PM.IDCN ---
History of Present Illness Data of Consult Service Date: 04/21/23 Requesting physician: Suri Ruelas Primary Care Provider: Unknown Physician HPI Reason for consult: encephalopathy She presents with confusion on 04/16. She was found to have blood sugar 500. SHe has more than [id number] colonies E coli as well as over [id number] CRE Klebsiella. She had no urinary symptoms and 0-5 WBC only in urine. She has no bacteremia or hematuria. Review of Systems Review of Systems: Yes Unobtainable due to mental condition [facility] Past Medical History Medical History Non-insulin dependent type 2 diabetes mellitus Hypothyroidism CAD (coronary artery disease) HLD (hyperlipidemia) HTN (hypertension) Family History Family history: reviewed and not pertinent Surgical History Surgical History History of lumbar surgery Social History Social History Household Members: Family Housing: House Do you presently have visiting nurse or other home services: No Unable to assess alcohol history related to: Unknown Patient Tobacco Use Status: Never used Tobacco service: No Meds Allergies Allergy/AdvReac Type Severity Reaction Status Date / Time No Known Allergies Allergy Verified 04/16/23 14:12 Home Medications Medication Instructions Recorded Confirmed Last Taken Type atorvastatin 40 mg tablet 40 mg PO DAILY 03/17/23 04/16/23 04/16/23 09:00 History duloxetine 20 mg capsule,delayed 20 mg PO DAILY 03/17/23 04/16/23 04/16/23 09:00 History release glipizide 10 mg tablet, extended 10 mg PO DAILY 03/17/23 04/16/23 04/16/23 09:00 History release 24 hr levothyroxine 50 mcg tablet 50 mcg PO DAILY@0600 03/17/23 04/16/23 04/16/23 09:00 History memantine 10 mg tablet 10 mg PO DAILY 03/17/23 04/16/23 04/16/23 09:00 History metoprolol succinate 50 mg 50 mg PO DAILY 03/17/23 04/16/23 04/16/23 09:00 History tablet,extended release 24 hr acetaminophen 650 mg 650 mg PO BID 04/16/23 04/16/2323 09:00 History tablet,extended release amlodipine 5 mg tablet 5 mg PO DAILY 04/16/23 04/16/23 04/16/23 09:00 History dexamethasone 4 mg tablet 4 mg PO BID 04/16/23 04/16/23 04/16/23 09:00 History Physical Exam Vital Signs: Vital Signs: Last Vital Signs Temp 97.4 F 04/22/23 11:46 Pulse 119 H 04/22/23 11:46 Resp 16 04/22/23 11:46 BP 90/55 L 04/22/23 11:46 Pulse Ox 94 04/22/23 11:46 O2 Del Method Nasal Cannula 04/22/23 11:46 O2 Flow Rate 2 04/22/23 11:46 BMI result Body Mass Index 21.1 Psych: Other: encephalopathic and doesnt answer questions Results Labs 04/22/23 07:56 04/22/23 07:56 Labs: Short CBC 04/22/23 Range/Units 07:56 WBC 2.9 L (4.8-10.8) X10*3/uL Hgb 11.0 L D (12.0-16.0) g/dl Hct 32.5 L D (37.0-47.0) % Plt Count 70 L D (160-400) X10*3/uL BMP 04/22/23 07:56 Sodium 134 L Potassium 4.8 D Chloride 102 Carbon Dioxide 22 BUN 22 H Creatinine 0.70 Calcium 8.6 Liver Function 04/22/23 Range/Units 07:56 Total Bilirubin 1.3 H (0.0-1.0) mg/dL AST 32 H (5-31) U/L ALT 40 H (0-31) U/L Alkaline Phosphatase 79 (39-117) U/L Albumin 2.7 L (3.5-5.0) g/dL Microbiology Microbiology Results: Microbiology 04/16/23 16:00 Blood - Venous Blood Culture - Final No growth after 5 days. 04/16/23 14:50 Blood - Venous Blood Culture - Final No growth after 5 days. Assessment and Plan (1) Posterior reversible encephalopathy syndrome: Status: Acute (2) COVID-19: Status: Acute Plan Patient has likely posterior reversible encephalopathy syndrome, probable neurologic COVID as well as hyperglycemia contributing. THere is no UTI (she has colonization bacteria) COVID onset 04/19/2023. Would not give antibiotics Consider Remdesivir. Symptomatic care
== END 2023-04-22 14:00 | disposition expired | DRG 637 ==
LOC: HO.ED 16:32 → HO.EDOVER 20:25 → HO.ICU 20:31 → HO.IMC 04-18 11:56
PROVIDERS: Hospitalist; Internal Medicine Pulmonary Disease; Nurse Practitioner Family; Physician Assistant; Admitting Provider Anesthesiology; Emergency Provider Emergency Medicine; Visit Provider Hospitalist
DX: E11.10 Type 2 diabetes mellitus with ketoacidosis without coma (principal); G92.8 Other toxic encephalopathy; I67.83 Posterior reversible encephalopathy syndrome; U07.1 COVID-19; J96.01 Acute respiratory failure with hypoxia; N17.9 Acute kidney failure, unspecified; R68.0 Hypothermia, not associated with low environmental temperature; E87.5 Hyperkalemia; L89.322 Pressure ulcer of left buttock, stage 2; H47.612 Cortical blindness, left side of brain; R13.10 Dysphagia, unspecified; H47.611 Cortical blindness, right side of brain; E78.5 Hyperlipidemia, unspecified; M43.6 Torticollis; F03.A0 Unspecified dementia, mild, without behavioral disturbance, psychotic disturbance, mood disturbance, and anxiety; I10 Essential (primary) hypertension; E86.1 Hypovolemia; Z22.350 Carrier of carbapenem-resistant Enterobacterales; I25.10 Atherosclerotic heart disease of native coronary artery without angina pectoris; E03.9 Hypothyroidism, unspecified; Z79.84 Long term (current) use of oral hypoglycemic drugs; Z79.890 Hormone replacement therapy; Z79.899 Other long term (current) drug therapy
CPT/HCPCS: 0241U; 36415; 36573; 70450; 70544; 70551; 71045; 80048; 80053; 80061; 81001; 82010; 82040; 82140; 82803; 82947; 83735; 83880; 84100; 84443; 84478; 84484; 85007; 85025; 85027; 85610; 87040; 92526; 92610; 93005; 94640; 99285; C1751; C1758; J0613; J0696; J1100; J1642; J1644; J3010; J3475; J3480; J7120; P9047

== ENCOUNTER → 2023-04-16 13:45 | Outpatient (BNV) | payer MEDICARE, SELFPAY | PROVIDERS: Admitting Provider Anesthesiology; Emergency Provider Emergency Medicine; Visit Provider Internal Medicine | DX: R00.1 Bradycardia, unspecified (principal); R94.31 Abnormal electrocardiogram [ECG] [EKG] | CPT/HCPCS: 93010 ==

== ENCOUNTER 2023-04-16 20:16 | Outpatient (BNV) | payer MEDICARE, SELFPAY | END 2023-04-18 21:55 | PROVIDERS: Admitting Provider Anesthesiology; Emergency Provider Emergency Medicine; Visit Provider Internal Medicine Cardiovascular Disease | DX: I49.1 Atrial premature depolarization (principal); R94.31 Abnormal electrocardiogram [ECG] [EKG] | CPT/HCPCS: 93010 ==

== ENCOUNTER → 2023-04-16 20:16 | Outpatient (BNV) | payer MEDICARE, SELFPAY | PROVIDERS: Admitting Provider Anesthesiology; Emergency Provider Emergency Medicine; Visit Provider Hospitalist | DX: U07.1 COVID-19 (principal); E11.10 Type 2 diabetes mellitus with ketoacidosis without coma; J96.01 Acute respiratory failure with hypoxia; N39.0 Urinary tract infection, site not specified | CPT/HCPCS: 99233; 99239 ==

== ENCOUNTER → 2023-04-16 20:16 | Outpatient (BNV) | payer MEDICARE, SELFPAY | PROVIDERS: Admitting Provider Anesthesiology; Emergency Provider Emergency Medicine; Visit Provider Anesthesiology | DX: T68.XXXA Hypothermia, initial encounter (principal); N17.9 Acute kidney failure, unspecified; E11.10 Type 2 diabetes mellitus with ketoacidosis without coma | CPT/HCPCS: 36556; 99291 ==

== ENCOUNTER → 2023-04-16 20:16 | Outpatient (BNV) | payer MEDICARE, SELFPAY | PROVIDERS: Admitting Provider Anesthesiology; Emergency Provider Emergency Medicine; Visit Provider Internal Medicine Pulmonary Disease | DX: E11.10 Type 2 diabetes mellitus with ketoacidosis without coma (principal); N17.9 Acute kidney failure, unspecified | CPT/HCPCS: 99232 ==

== ENCOUNTER → 2023-04-16 20:16 | Outpatient (BNV) | payer MEDICARE, SELFPAY | PROVIDERS: Admitting Provider Anesthesiology; Emergency Provider Emergency Medicine; Visit Provider Internal Medicine | DX: I67.83 Posterior reversible encephalopathy syndrome (principal); U07.1 COVID-19 | CPT/HCPCS: 99222 ==